=== PATIENT | female | born 1950 | race Caucasian/White ===

== ENCOUNTER → 2018-02-19 06:57 | Outpatient (CLI) | payer MEDICARE, BC, SELFPAY ==
[2018-02-19 07:27] LABS: Add Manual Diff / Slide Review NO; Basophils Percent Auto 1.1 % (0-2); Eosinophils Percent Auto 4.4 % (2-4); Hematocrit 43.8 % (36-46); Lymphocytes Percent Auto 33.3 % (25-40); Mean Corpuscular HGB Conc 34.3 % (30-36); Mean Corpuscular Hemoglobin 30.9 PG (26-34); Monocytes Percent Auto 10.8 % (3-14); Neutrophils Absolute Auto 2100 /uL (3000-5900); Neutrophils Percent Auto 50.4 % (50-75); Platelet Count 257 X10^3/uL (150-400); Red Blood Cell Count 4.87 X10^6/uL (4.0-5.2); Red Cell Distribution Width 13.8 % (11.6-14.8); White Blood Cell Count 4.2 X10^3/uL (4.5-11.0)
[2018-02-19 07:38] LABS: Alanine Aminotransferase 32 IU/L (9-52); Albumin 4.1 g/dL (3.5-5.0); Albumin Globulin Ratio 1.2 (1.0-2.8); Alkaline Phosphatase 73 U/L (38-126); Aspartate Aminotransferase 34 IU/L (14-36); BUN Creatinine Ratio 18.8 (6-22); Bilirubin Total 0.5 mg/dL (0.2-1.3); Blood Urea Nitrogen 15 mg/dL (7-17); Calcium 9.5 mg/dL (8.4-10.2); Carbon Dioxide 29 mmol/L (22-32); Chloride 105 mmol/L (98-107); Cholesterol 231 mg/dL (140-199); Estimated Glomerular Filt Rate > 60.0 mL/min (>60); Globulin 3.5 g/dL (1.7-4.1); Glucose 106 mg/dL (80-110); HDL Cholesterol 68 mg/dL (40-60); HEMOLYSIS < 15 (0-50); LDL Cholesterol Calculated 146 mg/dL (<100); Potassium 3.8 mmol/L (3.4-5.1); Sodium 143 mmol/L (137-145); Total Protein 7.6 g/dL (6.3-8.2); Triglycerides 84 mg/dL (35-150)
[2018-02-19 08:28] LABS: Thyroid Stimulating Hormone 1.96 uIU/mL (0.47-4.68)
[2018-02-23 21:28] LABS: Thyroid Stimulating Immunoglob < 89 % baseline (< 140)
== END ==
PROVIDERS: PCP Family Medicine; Visit Provider Family Medicine
DX: E06.3 Autoimmune thyroiditis (principal); E78.5 Hyperlipidemia, unspecified
CPT/HCPCS: 36415; 80053; 80061; 84443; 84445; 85025

== ENCOUNTER → 2018-03-20 12:53 | Outpatient (CLI) | payer MEDICARE, BC, SELFPAY ==
--- NOTE | 2018-03-20 12:54 | DI.US.S_ITS ---
PROCEDURE: US THYROID INDICATIONS: NODULE TECHNIQUE: Real-time scanning was performed of the thyroid gland, with image documentation. COMPARISON: [facility], US, THYROID, 08/25/2013, 14:03. FINDINGS: Right: The right thyroid lobe measures 2.6 x 2.4 x 5.4 cm and contains 2 discrete nodules. The right thyroid lobe measures 2.1 x 1.3 x 4.6 cm. The thyroid parenchyma is heterogeneous bilaterally, but there are 2 discrete right thyroid nodules one of which is superior measuring up to 2.1 x 1.5 x 1.6 cm and a second is inferior and measures 1.9 x 1.5 x 1.5 cm. The right superior thyroid nodule as slightly enlarged, and the right inferior thyroid nodule is new.. Left: The left thyroid lobe measures up to 2.1 x 1.3 x 4.6 cm and contains a small 3 x 3 x 4 mm nodule is solid, hypoechoic smoothly marginated. Isthmus: 4 mm in thickness. IMPRESSION: Mild interval enlargement of the superior right thyroid nodule, interval development of a new right inferior thyroid nodule. Very small left middle third thyroid nodule, generalized heterogeneity of the thyroid gland bilaterally. Dictated by: Sukhjinder Le M.D. on 03/20/2018 at 14:06 Approved by: Sukhjinder Le M.D. on 03/20/2018 at 14:09
--- NOTE | 2018-03-20 12:54 | DI.MG.S_ITS ---
BILATERAL DIGITAL SCREENING MAMMOGRAM 3D/2D WITH CAD: 03/20/2018 CLINICAL: Routine screening. Comparison is made to exams dated: 02/27/2015 mammogram, 11/26/2011 mammogram - [facility], and 05/19/2007 mammogram - [facility]. There are scattered fibroglandular elements in both breasts. Current study was also evaluated with a Computer Aided Detection (CAD) system. There is an asymmetry in the right breast middle depth lateral region seen on the craniocaudal view only. There is architectural distortion associated with the asymmetry. No other significant masses, calcifications, or other findings are seen in either breast. IMPRESSION: INCOMPLETE: NEEDS ADDITIONAL IMAGING EVALUATION The asymmetry in the right breast is indeterminate. Additional views with possible ultrasound are recommended. This exam was interpreted at Station ID: [id number]. NOTE: For mammograms, a report in lay terms will be sent to the patient. Approximately 15% of breast malignancies will not be visualized mammographically. In the management of a palpable breast mass, a negative mammogram must not discourage biopsy of a clinically suspicious lesion. Electronically Signed By: Erin Naranjo M.D. lk/:03/20/2018 15:43:58 copy to: Yaritza Osborn copy to: IAIN FIGUEROA letter sent: Additional Imaging Needed ACR BI-RADS Category 0: Incomplete [id number]
== END ==
PROVIDERS: Family Provider Family Medicine; PCP Family Medicine; Visit Provider Family Medicine
DX: Z12.31 Encounter for screening mammogram for malignant neoplasm of breast (principal); E06.3 Autoimmune thyroiditis; E78.5 Hyperlipidemia, unspecified; E04.2 Nontoxic multinodular goiter
CPT/HCPCS: 76536; 77063; 77067

== ENCOUNTER → 2018-04-03 08:24 | Outpatient (CLI) | payer MEDICARE, BC, SELFPAY ==
--- NOTE | 2018-04-03 | DI.US.S_ITS ---
ULTRASOUND OF RIGHT BREAST: 04/03/2018 CLINICAL: Follow up from addtional views. Comparison is made to exams dated: 04/03/2018 mammogram, 03/20/2018 mammogram, and 02/27/2015 mammogram - [facility]. Color flow ultrasound of the right breast was performed. Butt scale images of the real-time examination were reviewed. There is a 5 mm irregular mass with a spiculated margin in the right breast at 10 o'clock middle depth. This irregular mass is hypoechoic. Sonographically normal right axillary lymph nodes. IMPRESSION: SUSPICIOUS OF MALIGNANCY - FOLLOW-UP RECOMMENDED The 5 mm irregular mass in the right breast is suspicious of malignancy. An ultrasound guided biopsy is recommended. This exam was interpreted at Station ID: [id number]. Electronically Signed By: Theodore Brown M.D. cj/:04/03/2018 11:19:25 copy to: Yaritza Osborn letter sent: Biopsy Required Ultrasound BI-RADS: 4 Suspicious abnormality
--- NOTE | 2018-04-03 | DI.MG.S_ITS ---
UNILATERAL RIGHT DIGITAL DIAGNOSTIC MAMMOGRAM 3D/2D WITH ADDITIONAL VIEWS: 04/03/2018 CLINICAL: Additional evaluation requested from prior study. Comparison is made to exams dated: 03/20/2018 mammogram, 02/27/2015 mammogram, and 11/26/2011 mammogram - [facility]. There are scattered fibroglandular elements in the right breast. There is a 4 mm irregular mass with an indistinct margin in the right breast at 10 o'clock anterior depth. No other significant masses or calcifications are seen in the breast. IMPRESSION: INCOMPLETE: NEEDS ADDITIONAL IMAGING EVALUATION The 4 mm irregular mass in the right breast is indeterminate. An ultrasound is recommended. This exam was interpreted at Station ID: [id number]. NOTE: For mammograms, a report in lay terms will be sent to the patient. Approximately 15% of breast malignancies will not be visualized mammographically. In the management of a palpable breast mass, a negative mammogram must not discourage biopsy of a clinically suspicious lesion. Electronically Signed By: Theodore lopes/olivia:04/03/2018 11:17:19 copy to: Yaritza Osborn [facility] BI-RADS Category 0: Incomplete [id number]
== END ==
PROVIDERS: Family Provider Family Medicine; PCP Family Medicine; Visit Provider Family Medicine
DX: R92.8 Other abnormal and inconclusive findings on diagnostic imaging of breast (principal); N63.11 Unspecified lump in the right breast, upper outer quadrant
CPT/HCPCS: 76642; 77065; G0279

== ENCOUNTER → 2018-04-15 07:39 | Outpatient (CLI) | payer MEDICARE, BC, SELFPAY ==
--- NOTE | 2018-04-15 | DI.MG.S_ITS ---
UNILATERAL RIGHT DIGITAL DIAGNOSTIC MAMMOGRAM POST-NEEDLE BIOPSY: 04/15/2018 CLINICAL: Right breast mass. Comparison is made to exams dated: 04/03/2018 mammogram, 03/20/2018 mammogram, and 02/27/2015 mammogram - [facility]. There are scattered fibroglandular elements in the right breast. There is a marker clip in the appropriate position in the right breast at 11 o'clock middle depth. This marker clip placement is at biopsy site. IMPRESSION: POST PROCEDURE MAMMOGRAM FOR MARKER PLACEMENT There was a successful marker clip placement in the right breast middle depth. This exam was interpreted at Station ID: [id number]. NOTE: For mammograms, a report in lay terms will be sent to the patient. Approximately 15% of breast malignancies will not be visualized mammographically. In the management of a palpable breast mass, a negative mammogram must not discourage biopsy of a clinically suspicious lesion. Electronically Signed By: Sukhjinder Le M.D. sdh/:04/15/2018 16:47:02 copy to: IAIN FIGUEROA ACR BI-RADS Category Post-procedure mammogram for marker placement
--- NOTE | 2018-04-15 | PATH_ITS ---
[facility] Accession Number: [id number] . 01 Material submitted: . RIGHT BREAST MASS . 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 Jake grade 2 of 3 (poor tubule formation-3, intermediate nuclear pleomorphism-2, low mitotic rate-1). 2. Greatest linear extent: 4 mm. 3. Ductal carcinoma in situ: Present, low grade, solid pattern. 4. Microcalcifications: Not identified. 5. Lymph-vascular invasion: Not identified. 6. Prognostic markers: Estrogen receptor (SP1): Moderately positive, 20% of cells. Progesterone receptor (1E2): Strongly positive, 15% of cells. HER-2 (4B5): Negative (score 1+). MRV/04/17/2018 . 02 Comment: As part of routine quality assurance monitor, Dr. Genao also reviewed this case and agrees with the diagnosis of mammary carcinoma. Dr. Vega called Dr. Miranda office on 04/17/18. . 02 Electronically signed: . Bell Vega MD, Pathologist NPI- [id number] . 01 Gross description: . Received one formalin-filled container labeled with the patient's name and designated right breast mass 10 o'clock, 5 cm from nipple. The specimen is received with a plastic filter, sample loose in container. The specimen consists of multiple light yellow to yellow-gabriel portions of tissue which aggregate to 1.5 x 0.5 x 0.3 cm. The specimen is filtered and entirely submitted in one cassette. Collection date: 04/15/2018. Collection time: 8:33 AM per container. Total fixation time: 12 hours, up to 24. ([id number]) /FRR . 02 Microscopic: . Immunohistochemical stains were performed to characterize the cells of interest. All control stains showed appropriate reactivity. . RESULTS: P63: Positive around cell groups of interest consistent with in situ carcinoma. . E-cadherin: Positive in the cells of interest, consistent with ductal carcinoma. . Estrogen receptor: Moderately positive, 20% of cells. Progesterone receptor: Strongly positive, 15% of cells. HER-2: Negative (score 1+). . * This test was developed and its performance characteristics determined by [facility]. It has not been cleared or approved by the U.S. Food and Drug Administration. The FDA has determined that such clearance or approval is not necessary. This test is used for clinical purposes. It should not be regarded as investigational or for research. . 02 Pathologist provided ICD-10: C50.911 . 02 CPT . 259402, U29829, H91178 Performed at: 01 [facility] [address] [id number] MD Abebe Ha MD Phone: [phone] Performed at: 02 [facility] [address] [place] [id number] MD Aristides Kim MD Phone: [phone]
--- NOTE | 2018-04-15 07:41 | DI.US.S_ITS ---
ULTRASOUND GUIDED BIOPSY RIGHT BREAST USING VACUUM DEVICE WITH MARKING DEVICE INSERTED AND POST DIGITAL MAMMOGRAPHIC AND ULTRASOUND IMAGIN04/15/2018 CLINICAL: Right breast mass. PATIENT CONSENT: Risks (minor bleeding, infection, vasovagal reaction and repeat procedure), benefits and alternatives were explained to the patient and written informed consent was obtained. Correlation is made to exams dated: 04/03/2018 ultrasound, 04/03/2018 mammogram, 03/20/2018 mammogram, and 02/27/2015 mammogram - [facility]. An ultrasound guided biopsy using real-time ultrasound was performed for the concerning 0.4 cm x 0.5 cm x 0.4 cm circumscribed round mass located in the right breast at 11 o'clock anterior depth. This was described on the previous mammography and ultrasound reports. The skin was prepped in the usual manner. Local anesthetic was administered to the access site. A skin angelica was made in the breast. The abnormality was approached from the lateral aspect. A 13 gauge biopsy needle was placed adjacent to the abnormality under ultrasound guidance. Once the needle was documented to be in the correct location, four specimens were obtained using the Mammotome biopsy system. The patient received additional local anesthetic during the procedure. A clip was inserted into the biopsy cavity. A skin closure strip was applied to the access site. Post procedure digital mammographic and ultrasound imaging demonstrates the clip at the targeted area and partial removal of the abnormality. The specimens were sent to the laboratory for pathological analysis. IMPRESSION: ULTRASOUND GUIDED BIOPSY MALIGNANT Ultrasound guided biopsy of the 0.4 cm x 0.5 cm x 0.4 cm mass in the right breast at 11 o'clock anterior depth was successful. Post biopsy mammogram will be performed now. Pathology results demonstrate malignant invasive ductal carcinoma with DCIS present. Findings are concordant with prior mammogram and ultrasound. This exam was interpreted at Station ID: [id number]. Sukhjinder meneses,markus/:04/22/2018 13:54:18 copy to: IAIN FIGUEROA
== END ==
PROVIDERS: Family Provider Family Medicine; PCP Family Medicine; Visit Provider Family Medicine
DX: C50.411 Malignant neoplasm of upper-outer quadrant of right female breast (principal); Z17.0 Estrogen receptor positive status [ER+]
CPT/HCPCS: 19083; 77065

== ENCOUNTER → 2018-04-24 10:33 | Outpatient (CLI) | payer MEDICARE, BC, SELFPAY ==
--- NOTE | 2018-04-24 | DI.CT.S_ITS ---
PROCEDURE: CT SINUS SCREEN WO CON INDICATIONS: CHRONIC SINUSITIS. RIGHT SIDED SINUS PRESSURE TECHNIQUE: Noncontrast 3.0 mm axial images acquired from the frontal sinuses to the mid-sella, with coronal and sagittal reformats. For radiation dose reduction, the following was used: automated exposure control, adjustment of mA and/or kV according to patient size. COMPARISON: [facility], MR, BRAIN WITHOUT CONTRAST, 01/18/2013, 15:07. FINDINGS: Image quality: Excellent. Maxillary Sinuses: No bony remodeling or destruction. Sinuses are clear. Ethmoid Air Cells: No bony remodeling or destruction. Sinuses are clear. Sphenoid Sinuses: No bony remodeling or destruction. Sinuses are clear. Frontal Sinuses: No bony remodeling or destruction. Sinuses are clear. Note is made of the right frontal sinus is poorly developed. Ostiomeatal Complexes: Ostiomeatal complexes are patent. No Raciel cells. Miscellaneous: Visualized intra-orbital contents are normal. No zunilda bullosa or paradoxical turbinate curvature. No significant nasal septal deviation. IMPRESSION: No significant active paranasal sinus disease is seen. Dictated by: Trevor Abdullahi M.D. on 04/24/2018 at 11:35 Approved by: Trevor Abdullahi M.D. on 04/24/2018 at 11:36
== END ==
PROVIDERS: Family Provider Naturopath; PCP Family Medicine; Visit Provider Otolaryngology
DX: J32.9 Chronic sinusitis, unspecified (principal)
CPT/HCPCS: 70486

== ENCOUNTER → 2018-04-28 07:36 | Outpatient (CLI) | payer MEDICARE, BC, SELFPAY ==
--- NOTE | 2018-04-28 07:38 | DI.NM.S_ITS ---
PROCEDURE: NM UPTAKE AND SCAN RADIOPHARMACEUTICAL: 0.4 ?Ci I-123 sodium iodide by mouth. INDICATIONS: nodules rt thyroid TECHNIQUE: I-123 sodium iodide was administered orally. Anterior neck images were obtained, and iodine uptake by the thyroid gland calculated using ironing machine operator's software. COMPARISON: [facility], , THYROID, 03/20/2018, 13:17. FINDINGS: Morphology: The thyroid gland has normal morphology and uniform activity. No 'cold' or 'hot' thyroid nodules are identified. Uptake: 6 hour thyroid uptake is 6.2%; normal ranges are from 6-18%. 24 hour thyroid uptake is 15.2%; normal ranges are from 10-30%. IMPRESSION: Normal thyroid scan, no abnormal hot or cold thyroid nodules found. Thyroid uptake of the radioisotope is within normal limits at both 6 and 24 hours. Dictated by: Sukhjinder Le M.D. on 04/29/2018 at 11:52 Approved by: Sukhjinder Le M.D. on 04/29/2018 at 11:54
== END ==
PROVIDERS: Family Provider Naturopath; PCP Family Medicine; Visit Provider Family Medicine
DX: E04.1 Nontoxic single thyroid nodule (principal)
CPT/HCPCS: 78014; A9516

== ENCOUNTER → 2018-04-30 13:10 | Outpatient (CLI) | payer MEDICARE, BC, SELFPAY ==
[2018-04-30 14:51] LABS: Free T3, Triiodothyronine Free 2.72 pg/mL (2.77-5.27); Free T4, Direct Thyroxine 1.31 ng/dL (0.78-2.19)
[2018-04-30 15:05] LABS: Thyroid Stimulating Hormone 1.22 uIU/mL (0.47-4.68)
[2018-05-02 16:24] LABS: Anti Thyroglobulin Antibody 77 IU/mL (< 2); Thyroid Peroxidase Antibodies 104 IU/mL (< 9)
[2018-05-05 15:31] LABS: Triiodothyronine T3 Reverse 29 ng/dL (8-25)
== END ==
PROVIDERS: Family Provider Naturopath; PCP Family Medicine; Visit Provider Family Medicine
DX: E03.9 Hypothyroidism, unspecified (principal)
CPT/HCPCS: 36415; 84439; 84443; 84481; 84482; 86376; 86800

== ENCOUNTER → 2018-05-08 13:14 | Outpatient (CLI) | payer MEDICARE, BC, SELFPAY ==
--- NOTE | 2018-05-08 13:15 | DI.US.S_ITS ---
ULTRASOUND OF RIGHT BREAST: 05/08/2018 CLINICAL: Pre-op wire localization. Comparison is made to exams dated: 04/22/2018 breast MRI - [facility], 04/15/2018 mammogram, 04/15/2018 ultrasound biopsy, 04/03/2018 ultrasound, 04/03/2018 mammogram, and 03/20/2018 mammogram - [facility]. Color flow ultrasound of the right breast was performed. Butt scale images of the real-time examination were reviewed. There is a 0.4 cm mass in the right breast at 10 o'clock middle depth 5 cm from the nipple. IMPRESSION: KNOWN BIOPSY PROVEN MALIGNANCY The 0.4 cm mass in the right breast is a known biopsy positive for malignancy. Post biopsy marker is noted but is 2 cm from the biopsy proven malignancy. This exam was interpreted at Station ID: [id number]. Electronically Signed By: Theodore Brown M.D. cj/:05/08/2018 15:22:17 Ultrasound BI-RADS: 6 Known biopsy proven malignancy
== END ==
PROVIDERS: Family Provider Naturopath; PCP Family Medicine; Visit Provider Surgery
DX: C50.411 Malignant neoplasm of upper-outer quadrant of right female breast (principal)
CPT/HCPCS: 76642

== ENCOUNTER 2018-05-20 07:02 | Day surgery (SDC) | payer MEDICARE, BC, SELFPAY ==
[2018-04-30 15:03] VITALS: BMI 35.9
[2018-05-20] VITALS (8 sets, daily range): BP systolic 90–154; BP diastolic 51–82; PULSE 59–83; RESP 10–16; TEMP 36–36.6; O2SAT 92–99; BMI 34.7
--- NOTE | 2018-05-20 | DI.MG.S_ITS ---
PROCEDURE: MM DIAGNOSTIC MAMMO UNILAT RT2D COMPARISON: [facility], , CHELSIE DIAGNOSTIC MAMMO UNILAT RT2D, 04/15/2018, 8:47. INDICATIONS: Right Breast Cancer FINDINGS: IMPRESSION: Dictated by: Ramírez Wade M.D. on 05/20/2018 at 10:30 Approved by: Ramírez Wade M.D. on 05/20/2018 at 10:31
--- NOTE | 2018-05-20 | DI.US.S_ITS ---
PROCEDURE: US BREAST NEEDLE LOC RT COMPARISON: None. INDICATIONS: PRE-OP WIRE LOC FINDINGS: IMPRESSION: Dictated by: Ramírez Wade M.D. on 05/20/2018 at 10:37 Approved by: Ramírez Wade M.D. on 05/20/2018 at 10:49
--- NOTE | 2018-05-20 | DI.MG.S_ITS ---
PROCEDURE: MM SURGICAL SPECIAMN RT INDICATIONS: Right Breast Cancer TECHNIQUE: Intraoperative film of the breast surgical specimen acquired. COMPARISON: None. IMPRESSION: Dictated by: Ramírez Wade M.D. on 05/20/2018 at 12:52 Approved by: Ramírez Wade M.D. on 05/20/2018 at 13:09
--- NOTE | 2018-05-20 | PATH_ITS ---
[facility] Accession Number: [id number] . 01 Material submitted: . PART A: RIGHT AXILLARY, SENTINEL NODE PART B: RIGHT BREAST BIOPSY . 02 Diagnosis: . A. Right Axillary Addy Node, Addy Node Biopsy: One sentinel lymph node negative for metastatic carcinoma by H/E stains and immunohistochemistry studies (0/1). . B. Right Breast Biopsy, Lumpectomy After Needle Localization: . CAP CANCER CASE SUMMARY: . Invasive carcinoma of the breast with the following features: . Procedure: Right breast lumpectomy and sentinel node biopsy after needle localization and mapping. Specimen Laterality: Right. . Tumor site: 10 o'clock 5 cm from nipple per biopsy report Tumor size: 0.9 cm Histologic type: Infiltrating ductal carcinoma (e-cadherin IHC study positive, performed on previous needle core biopsy). Histologic grade: Jake histologic score 5 of 9 (Grade 1) Glandular/Tubular differentiation: Score 2. Nuclear Pleomorphism: Score 2. Mitotic Rate: Score 1. Overall Grade: Grade 1 of 3 (Low grade). Tumor focality: Unifocal Ductal carcinoma in situ: Present. Size (Extent) of DCIS: Rare scattered foci, each less than 1 mm. Architectural patterns: Solid. Nuclear grade: Grade 1 / low grade. Necrosis: Not identified. Lobular carcinoma in situ: Not identified. . Macroscopic and microscopic extent of tumor Skin: Not applicable. Nipple: Not applicable. Skeletal muscle: Not applicable. . Margins Negative for invasive carcinoma: Anterior: 7 mm. Posterior: Greater than 10 mm. Superior: Greater than 10 mm. Inferior: Greater than 10 mm. Medial: Greater than 10 mm. Lateral: 3 mm. Margins Negative for DCIS: Anterior: Greater than 10 mm. Posterior: Greater than 10 mm. Superior: Greater than 10 mm. Inferior: Greater than 10 mm. Medial: Greater than 10 mm. Lateral: 3 mm. . Lymph nodes Total number of lymph nodes examined: 1. Number of sentinel lymph nodes examined: 1. Lymph Node Involvement: Number of lymph nodes with macrometastases: 0. Number of lymph nodes with micrometastases: 0. Number of lymph nodes with isolated tumor cells: 0. . Addy Lymph Nodes:H/E stains and immunohistochemistry with LENIN. . Treatment effect: Response to Presurgical Therapy Breast: Not identified. Lymph nodes: Not identified. . Lymph-vascular invasion: Not identified. Dermal lymph-vascular invasion: Not applicable. Pathologic staging: AJCC, 8th ed. Primary tumor: pT1b Regional lymph nodes: pN0 (sn) . Additional pathologic findings: Changes consistent with previous instrumentation are present. Microcalcifications: Not identified. . Ancillary studies: Biomarkers [id number]. EstrogenReceptor (ER) Status: Positive (moderate staining, 20% of cells. Progesterone (PgR) Status: Positive (strong staining, 15% of cells). HER2 (by immunohistochemistry): Negative (score 1+). HER2 (by in situ hybridization: Not applicable. MRV/05/25/2018 . 02 Electronically signed: . Germain Genao MD, PhD, Pathologist NPI- [id number] . 01 Gross description: . (A) Received in formalin, labeled right axillary sentinel node (navigator count [id number]), is a piece of adipose tissue (4.5 x 2.4 x 1.3 cm) containing a lymph node (2.7 x 1.3 x 0.8 cm). Serially sectioned and entirely submitted in cassettes A1-A3. (B) Received in formalin, labeled right breast biopsy, short stitch superior, long lateral, double anterior, is a piece of breast tissue (2.6 cm AP, 4.5 cm SI, 6.7 cm ML) oriented with three black sutures (short-superior, long-lateral, double-anterior). A localization wire enters the central anterolateral aspect. The specimen is serially sectioned ML into 20 slices with the medial and lateral resection margins as slices #1 and #20, respectively. The localization wire ends between slices #14 and #15. The breast tissue is fatty and contains a gabriel-white solid firm irregular mass (0.9 x 0.5 x 0.5 cm) within slices #19 and #20. The mass is 0.7 cm from the anterior, 1.3 cm from the posterior, 1.4 cm from the superior, 2.5 cm from the inferior, 6.1 cm from the medial, and less than 0.1 cm from the lateral resection margins. No other nodules, masses or lesions are identified. Ink code: purple-anterior; yellow-posterior; black-superior; orange-inferior; green-medial; blue-lateral. Section code: (B1) medial resection margin, perpendicularly sectioned, dental sales representative; (B2) slice #11, dental sales representative; (B3) slice #12, dental sales representative; (B4) slice #14, slice involving the localization wire, dental sales representative; (B5) slice #15, slice involving the localization wire, dental sales representative; (B6) slice #16, dental sales representative; (B7) slice #17, dental sales representative; (B8) slice #18, tissue adjacent to mass, entirely submitted; (B9) slice #19, entirely submitted; (B10) lateral resection margin, perpendicularly sectioned, entirely submitted. Note: Approximate total fixation time in formalin-31 hours 30 minutes using a collection date of 05/20/2018 with no collection time given. (JM:[id number]) /MRV . 02 Microscopic: . An immunohistochemistry study for LENIN was performed on blocks A1 and A2 to further evaluate the cells of interest. A control stain showed appropriate reactivity. . Results: Blocks A1 and A2: LENIN: Negative for metastatic carcinoma. . * This test was developed and its performance characteristics determined by [facility]. It has not been cleared or approved by the U.S. Food and Drug Administration. The FDA has determined that such clearance or approval is not necessary. This test is used for clinical purposes. It should not be regarded as investigational or for research. . 02 Pathologist provided ICD-10: C50.911 . 02 CPT . 145143, 525888, [id number] Performed at: 01 [facility] [address] [place] [address], [place], [place] [id number] MD Abebe Ha MD Phone: [phone] Performed at: 02 [place] [id number] [place] [id number] MD Aristides Kim MD Phone: [phone]
--- NOTE | 2018-05-20 | DI.NM.S_ITS ---
PROCEDURE: NM SENTINEL NODE W IMAGING RADIOPHARMACEUTICAL: 0.5 mCi Millipore filtered Tc-99m sulfur colloid. INDICATIONS: RIGHT BREAST CANCER TECHNIQUE: Written informed consent was obtained. The area around the region of concern on the right breast was prepped and draped in a sterile fashion. Tc-99m sulfur colloid was injected intra-dermally and subcutaneously around the areola. Images were obtained. FINDINGS: There is intense uptake at the injection site. 2 lymph nodes are identified in the right axilla. IMPRESSION: 2 lymph nodes are identified in the right axilla. Dictated by: Ena Perla M.D. on 05/20/2018 at 11:45 Approved by: Ena Perla M.D. on 05/20/2018 at 11:47
--- NOTE | 2018-05-20 09:49 | SUR.PREOP ---
pt back from radiology and denies any pain and right arm is raised. Pt is pleasant and cooperative. at bedside.
[2018-05-20] MEDS: LACTATED RINGERS 1,000 ML 42 ML IV ×2 (11:00→12:55)
--- NOTE | 2018-05-20 11:18 | SUR.OPER ---
Supine on padded OR bed, head on pillow, arms secured on padded arm boards at <90 degrees abduction, legs uncrossed, safety belt at thigh, tape over blanket over lower legs
[2018-05-20] MEDS: CEFAZOLIN 2 GM/100 ML FROZ.PIGGY IV (11:55)
[2018-05-20] MEDS: BUPIVACAINE 0.5% (PF) VIAL 30 ML INJ (12:23)
[2018-05-20] MEDS: LIDOCAINE 1% W/EPI INJ 20 ML INJ (12:24)
--- NOTE | 2018-05-20 12:38 | SUR.OPER ---
Navigator count [id number] for sentinel node
--- NOTE | 2018-05-20 12:57 | PM.PREOP ---
Pre-operative Note Interval Note Pre-op Check: Yes History & Physical Reviewed by Physician Changes: No
--- NOTE | 2018-05-20 12:57 | PM.OP.1 ---
Operative Date/Time/Diagnoses Date of procedure: 05/20/18 Time of procedure: 12:57 Pre-op diagnosis: Biopsy-proven right breast cancer Post-op diagnosis: same Procedure & Clinicians Procedure: Right breast lumpectomy and sentinel node biopsy after needle localization and mapping Same procedure as scheduled: Yes Indications: Biopsy-proven right breast cancer Surgeon: Jenae Barton Click Yes if Unassisted: Yes Anesthesia Type: General (Kotlarczyk) and Local Operative Notes Findings: 1. One enlarged sentinel node with a 10 [place] [address] 2. Background in the axilla of 6 3. The background in the room of 0 4. Wire and lesion contained within the specimen. Specimen(s): other (1. Right axillary sentinel node; 2. Right breast lumpectomy marked for orientation) Estimated Blood Loss (mL): 10 Procedure in detail: After obtaining informed consent, the patient was brought to the operating room and placed in the supine position on the operating table. Following successful induction of general endotracheal anesthesia, appropriate padding of all bony prominences, and placement of appropriate monitors, the right breast and axilla were prepped and draped in a standard surgical fashion. A timeout was held per SCOAP protocol. Following injection of mixture of local anesthetics into the axillary fold on the right side, an incision was created and carried down through the skin and subcutaneous tissue to enter the axillary fat pad below. The navigator was used to identify the sentinel node. This was done by identifying a small node in level I of the axillary packet. The node itself had a 1 second count of approximately 3300 in a background of less than 6. The node was carefully liberated from the remainder of the axillary packet being sure not to compromise any of the other lymphatic structures. All afferent and efferent lymphatics and vasculature were addressed with hemoclips prior to division. The axillary node packet was re-examined using the navigator and no other lymph nodes were identified that exhibited significant uptake of radioactive tracer. The wound was checked for hemostasis and irrigated with warm water. It was closed in 2 layers with Vicryl and Monocryl suture. We continued with lumpectomy on the right side. A curvilinear incision was created at the superior edge of the nipple-areolar complex on the right. This was carried down through the breast tissue to the palpable wire laterally. The wire was then pulled through the skin and the entire lesion liberated using only sharp dissection. The wire appeared to be centered within the specimen. It was marked for orientation and was sent for specimen x-ray. The wound was checked for hemostasis and irrigated with water. The radiologist called back into the room noting that the specimen x-ray contained the wire and mass. It was clearly documented and noted preoperatively that the clip is approximately 2.5 cm posterior to the breast lesion. For this reason, the clip was not a target in this procedure. The wound was checked once again for hemostasis. It was irrigated copiously with warm water and aspirated free of all fluid. The wound was checked once again for hemostasis and then closed in 2 layers with Vicryl Monocryl suture. Dermabond was applied to the skin incisions. Fluffs and a breast binder were applied. The patient tolerated the procedure very well. She was allowed awaken from anesthesia and taken to the post-anesthesia care unit in good condition. Complications: none Condition: stable Disposition: PACU Plan for aftercare: 1. Discharged to home 2. Follow up with me in 2 weeks
[2018-05-20] MEDS: OXYCODONE/ACETAMINOPHEN 5/325 TABLET 1 TAB PO (13:21)
== END 2018-05-20 14:05 | disposition home or self-care (01) ==
PROVIDERS: Family Provider Naturopath; PCP Family Medicine; Visit Provider Surgery
PROC: (CPT 19301; principal; 2018-05-20 11:00)
DX: C50.911 Malignant neoplasm of unspecified site of right female breast (principal)
CPT/HCPCS: 19301; 38500; 19285; 76098; 77065; 78195; 88307; 88342; A9541; J0690; J1100; J2250; J2405; J2704; J3010

== ENCOUNTER → 2018-07-03 07:00 | Outpatient (CLI) | payer MEDICARE, BC, SELFPAY ==
[2018-07-03 10:01] LABS: Alanine Aminotransferase 33 IU/L (9-52); Albumin 4.2 g/dL (3.5-5.0); Albumin Globulin Ratio 1.3 (1.0-2.8); Alkaline Phosphatase 84 U/L (38-126); Aspartate Aminotransferase 31 IU/L (14-36); BUN Creatinine Ratio 23.8 (6-22); Bilirubin Total 0.6 mg/dL (0.2-1.3); Blood Urea Nitrogen 19 mg/dL (7-17); Calcium 9.5 mg/dL (8.4-10.2); Carbon Dioxide 28 mmol/L (22-32); Chloride 105 mmol/L (98-107); Cholesterol 218 mg/dL (140-199); Estimated Glomerular Filt Rate > 60.0 mL/min (>60); Globulin 3.3 g/dL (1.7-4.1); Glucose 92 mg/dL (80-110); HDL Cholesterol 50 mg/dL (40-60); HEMOLYSIS < 15 (0-50); LDL Cholesterol Calculated 153 mg/dL (<100); Potassium 3.9 mmol/L (3.4-5.1); Sodium 144 mmol/L (137-145); Total Protein 7.5 g/dL (6.3-8.2); Triglycerides 77 mg/dL (35-150)
[2018-07-03 10:09] LABS: Free T3, Triiodothyronine Free 2.77 pg/mL (2.77-5.27); Free T4, Direct Thyroxine 1.07 ng/dL (0.78-2.19)
[2018-07-03 10:22] LABS: Thyroid Stimulating Hormone 1.91 uIU/mL (0.47-4.68)
[2018-07-07 16:28] LABS: Thyroid Peroxidase Antibodies 81 IU/mL (< 9)
[2018-07-09 08:44] LABS: Triiodothyronine T3 Reverse 22 ng/dL (8-25)
== END ==
PROVIDERS: Family Provider Naturopath; PCP Family Medicine; Visit Provider Family Medicine
DX: E03.9 Hypothyroidism, unspecified (principal); I10 Essential (primary) hypertension
CPT/HCPCS: 80053; 80061; 84439; 84443; 84481; 84482; 86376

== ENCOUNTER → 2018-08-14 13:38 | Outpatient (CLI) | payer MEDICARE, BC, SELFPAY ==
[2018-08-14 14:21] LABS: Add Manual Diff / Slide Review NO; Basophils Percent Auto 0.9 % (0-2); Eosinophils Percent Auto 6.1 % (2-4); Hematocrit 43.8 % (36-46); Hemoglobin 14.7 g/dL (12.0-16.0); Lymphocytes Percent Auto 23.1 % (25-40); Mean Corpuscular HGB Conc 33.7 % (30-36); Mean Corpuscular Hemoglobin 30.5 PG (26-34); Mean Corpuscular Volume 90.7 fL (80-100); Monocytes Percent Auto 8.1 % (3-14); Neutrophils Absolute Auto 3200 /uL (3000-5900); Neutrophils Percent Auto 61.8 % (50-75); Platelet Count 270 X10^3/uL (150-400); Red Blood Cell Count 4.82 X10^6/uL (4.0-5.2); Red Cell Distribution Width 13.5 % (11.6-14.8); White Blood Cell Count 5.3 X10^3/uL (4.5-11.0)
[2018-08-14 15:30] LABS: Alanine Aminotransferase 51 IU/L (9-52); Albumin 4.2 g/dL (3.5-5.0); Albumin Globulin Ratio 1.4 (1.0-2.8); Alkaline Phosphatase 95 U/L (38-126); Aspartate Aminotransferase 46 IU/L (14-36); BUN Creatinine Ratio 25.6 (6-22); Bilirubin Total 0.3 mg/dL (0.2-1.3); Blood Urea Nitrogen 23 mg/dL (7-17); Calcium 9.8 mg/dL (8.4-10.2); Carbon Dioxide 30 mmol/L (22-32); Chloride 102 mmol/L (98-107); Estimated Glomerular Filt Rate > 60.0 mL/min (>60); Globulin 3.1 g/dL (1.7-4.1); Glucose 88 mg/dL (80-110); HEMOLYSIS < 15 (0-50); Potassium 4.1 mmol/L (3.4-5.1); Sodium 144 mmol/L (137-145); Total Protein 7.3 g/dL (6.3-8.2)
== END ==
PROVIDERS: Family Provider Naturopath; PCP Family Medicine; Visit Provider Internal Medicine Hematology & Oncology
DX: C50.411 Malignant neoplasm of upper-outer quadrant of right female breast (principal); M85.852 Other specified disorders of bone density and structure, left thigh; Z78.0 Asymptomatic menopausal state; Z82.62 Family history of osteoporosis; E07.9 Disorder of thyroid, unspecified; M54.9 Dorsalgia, unspecified; M48.00 Spinal stenosis, site unspecified; G89.29 Other chronic pain
CPT/HCPCS: 36415; 77080; 80053; 85025

== ENCOUNTER → 2018-10-14 13:57 | Outpatient (CLI) | payer MEDICARE, BC, SELFPAY ==
[2018-10-14 14:53] LABS: Add Manual Diff / Slide Review NO; Basophils Absolute Auto 100 /uL (0-100); Basophils Percent Auto 1.1 % (0-2); Eosinophils Absolute Auto 200 /uL (0-450); Eosinophils Percent Auto 3.8 % (2-4); Hematocrit 43.7 % (36-46); Hemoglobin 14.9 g/dL (12.0-16.0); Lymphocytes Absolute Auto 1400 /uL (1100-4500); Lymphocytes Percent Auto 26.3 % (25-40); Mean Corpuscular Hemoglobin 30.8 PG (26-34); Mean Corpuscular Volume 90.6 fL (80-100); Monocytes Absolute Auto 300 /uL (0-900); Monocytes Percent Auto 5.5 % (3-14); Neutrophils Absolute Auto 3300 /uL (1500-7000); Neutrophils Percent Auto 63.3 % (50-75); Platelet Count 278 X10^3/uL (150-400); Red Blood Cell Count 4.82 X10^6/uL (4.0-5.2); Red Cell Distribution Width 13.7 % (11.6-14.8); White Blood Cell Count 5.2 X10^3/uL (4.5-11.0)
[2018-10-14 15:02] LABS: Alanine Aminotransferase 37 IU/L (9-52); Albumin 4.3 g/dL (3.5-5.0); Albumin Globulin Ratio 1.3 (1.0-2.8); Alkaline Phosphatase 89 U/L (38-126); Aspartate Aminotransferase 34 IU/L (14-36); BUN Creatinine Ratio 24.4 (6-22); Bilirubin Total 0.4 mg/dL (0.2-1.3); Blood Urea Nitrogen 22 mg/dL (7-17); Calcium 10.2 mg/dL (8.4-10.2); Carbon Dioxide 30 mmol/L (22-32); Chloride 100 mmol/L (98-107); Estimated Glomerular Filt Rate > 60.0 mL/min (>60); Globulin 3.4 g/dL (1.7-4.1); Glucose 123 mg/dL (80-110); HEMOLYSIS < 15 (0-50); Potassium 3.8 mmol/L (3.4-5.1); Sodium 140 mmol/L (137-145); Total Protein 7.7 g/dL (6.3-8.2)
== END ==
PROVIDERS: Family Provider Naturopath; PCP Family Medicine; Visit Provider Internal Medicine Hematology & Oncology
DX: D05.81 Other specified type of carcinoma in situ of right breast (principal)
CPT/HCPCS: 36415; 80053; 85025

== ENCOUNTER → 2019-01-19 08:17 | Outpatient (CLI) | payer MEDICARE, BC, SELFPAY ==
[2019-01-19 09:20] LABS: Add Manual Diff / Slide Review NO; Basophils Absolute Auto 0 /uL (0-100); Basophils Percent Auto 0.9 % (0-2); Eosinophils Absolute Auto 200 /uL (0-450); Eosinophils Percent Auto 4.5 % (2-4); Hematocrit 42.8 % (36-46); Hemoglobin 14.7 g/dL (12.0-16.0); Lymphocytes Absolute Auto 1300 /uL (1100-4500); Lymphocytes Percent Auto 29.5 % (25-40); Mean Corpuscular HGB Conc 34.4 % (30-36); Mean Corpuscular Hemoglobin 31.2 PG (26-34); Mean Corpuscular Volume 90.8 fL (80-100); Monocytes Absolute Auto 400 /uL (0-900); Monocytes Percent Auto 8.6 % (3-14); Neutrophils Absolute Auto 2500 /uL (1500-7000); Neutrophils Percent Auto 56.5 % (50-75); Platelet Count 257 X10^3/uL (150-400); Red Blood Cell Count 4.71 X10^6/uL (4.0-5.2); Red Cell Distribution Width 14.6 % (11.6-14.8); White Blood Cell Count 4.5 X10^3/uL (4.5-11.0)
[2019-01-19 09:37] LABS: Alanine Aminotransferase 27 IU/L (9-52); Albumin 4.2 g/dL (3.5-5.0); Albumin Globulin Ratio 1.2 (1.0-2.8); Alkaline Phosphatase 66 U/L (38-126); Aspartate Aminotransferase 44 IU/L (14-36); Bilirubin Total 0.5 mg/dL (0.2-1.3); Blood Urea Nitrogen 18 mg/dL (7-17); Calcium 9.7 mg/dL (8.4-10.2); Carbon Dioxide 31 mmol/L (22-32); Chloride 99 mmol/L (98-107); Estimated Glomerular Filt Rate > 60.0 mL/min (>60); Globulin 3.4 g/dL (1.7-4.1); Glucose 101 mg/dL (80-110); HEMOLYSIS < 15 (0-50); Potassium 3.8 mmol/L (3.4-5.1); Sodium 138 mmol/L (137-145); Total Protein 7.6 g/dL (6.3-8.2)
--- NOTE | 2019-01-19 12:42 | DI.MG.S_ITS ---
BILATERAL DIGITAL DIAGNOSTIC MAMMOGRAM 3D/2D SHORT-TERM FOLLOW-UP: 01/19/2019 CLINICAL: Right breast cancer, Short term follow up, due bilaterally. Comparison is made to exams dated: 05/20/2018 mammogram, 04/15/2018 mammogram, 04/03/2018 mammogram, 03/20/2018 mammogram, and 02/27/2015 mammogram - [facility]. There are scattered fibroglandular elements in both breasts. The patient is status post partial mastectomy right breast at 10 o'clock. There is a stable benign intramammary node in both breasts. No significant masses, calcifications, or other findings are seen in either breast. IMPRESSION: There is no mammographic evidence of malignancy. A 1 year screening mammogram is recommended. This exam was interpreted at Station ID: [id number]. NOTE: For mammograms, a report in lay terms will be sent to the patient. Approximately 15% of breast malignancies will not be visualized mammographically. In the management of a palpable breast mass, a negative mammogram must not discourage biopsy of a clinically suspicious lesion. Electronically Signed By: Thang browne/olivia:01/19/2019 14:49:42 copy to: LEW TOLENTINO copy to: Yaritza Osborn letter sent: Normal Exam ACR BI-RADS Category 2: Benign Finding(s) 3342F
== END ==
PROVIDERS: Internal Medicine Hematology & Oncology; Family Provider Naturopath; PCP Family Medicine; Visit Provider Surgery
DX: R92.8 Other abnormal and inconclusive findings on diagnostic imaging of breast (principal); C50.911 Malignant neoplasm of unspecified site of right female breast
CPT/HCPCS: 36415; 77066; 80053; 85025; G0279

== ENCOUNTER → 2019-06-02 08:19 | Outpatient (CLI) | payer MEDICARE, BC, SELFPAY ==
[2019-06-02 09:38] LABS: Creatinine Urine Random 137.5 mg/dL
[2019-06-02 09:40] LABS: Microalbumin Urine Random 1.1 mg/dL (0-1.6)
[2019-06-02 10:52] LABS: BUN Creatinine Ratio 21.1 (6-22); Blood Urea Nitrogen 19 mg/dL (7-17); Calcium 9.8 mg/dL (8.4-10.2); Carbon Dioxide 30 mmol/L (22-32); Chloride 102 mmol/L (98-107); Estimated Glomerular Filt Rate > 60.0 mL/min (>60); Glucose 70 mg/dL (80-110); HEMOLYSIS < 15 (0-50); Potassium 3.9 mmol/L (3.4-5.1); Sodium 142 mmol/L (137-145)
== END ==
PROVIDERS: PCP Family Medicine; Visit Provider Family Medicine
DX: R79.89 Other specified abnormal findings of blood chemistry (principal)
CPT/HCPCS: 36415; 80048; 82043; 82570

== ENCOUNTER → 2019-07-20 10:04 | Outpatient (CLI) | payer MEDICARE, BC, SELFPAY ==
[2019-07-20 11:09] LABS: BUN Creatinine Ratio 15.5 (6-22); Blood Urea Nitrogen 17 mg/dL (7-17); Calcium 9.8 mg/dL (8.4-10.2); Carbon Dioxide 32 mmol/L (22-32); Chloride 100 mmol/L (98-107); Estimated Glomerular Filt Rate 49.2 mL/min (>60); Glucose 96 mg/dL (80-110); HEMOLYSIS < 15 (0-50); Potassium 4.1 mmol/L (3.4-5.1); Sodium 140 mmol/L (137-145)
[2019-07-20 11:22] LABS: Free T3, Triiodothyronine Free 3.39 pg/mL (2.77-5.27); Free T4, Direct Thyroxine 1.23 ng/dL (0.78-2.19)
[2019-07-20 11:36] LABS: Thyroid Stimulating Hormone 1.71 uIU/mL (0.47-4.68)
[2019-07-23 15:40] LABS: Thyroid Peroxidase Antibodies 54 IU/mL (< 9)
[2019-07-24 15:25] LABS: Triiodothyronine T3 Reverse 17 ng/dL (8-25)
== END ==
PROVIDERS: PCP Family Medicine; Visit Provider Family Medicine
DX: E03.9 Hypothyroidism, unspecified (principal); R79.89 Other specified abnormal findings of blood chemistry
CPT/HCPCS: 36415; 80048; 84439; 84443; 84481; 84482; 86376

== ENCOUNTER → 2019-07-21 14:12 | Outpatient (CLI) | payer MEDICARE, BC, SELFPAY ==
[2019-07-21 15:24] LABS: Creatinine Urine Random 137.3 mg/dL
[2019-07-21 15:28] LABS: Microalbumi Creatinin Ratio Ur 4.3 ug/mg CR (<30); Microalbumin Urine Random < 0.6 mg/dL (0-1.6)
== END ==
PROVIDERS: PCP Family Medicine; Visit Provider Family Medicine
DX: I10 Essential (primary) hypertension (principal); N18.9 Chronic kidney disease, unspecified; N39.0 Urinary tract infection, site not specified
CPT/HCPCS: 82043; 82570

== ENCOUNTER → 2019-07-28 14:10 | Outpatient (CLI) | payer MEDICARE, BC, SELFPAY ==
--- NOTE | 2019-07-28 14:12 | DI.US.S_ITS ---
PROCEDURE: US ABDOMEN COMPLETE INDICATIONS: ABDOMINAL PAIN, ELEVATED CREATININE, HTN TECHNIQUE: Real-time scanning was performed of the abdominal and retroperitoneal organs, with image documentation. COMPARISON: None. FINDINGS: Liver: Liver is normal in size and homogeneous in echotexture. Gallbladder: Multiple gallstones present. No gallbladder wall thickening or pericholecystic fluid. Negative sonographic Gallegos sign. Biliary ducts: Intrahepatic bile ducts are non-dilated. Extrahepatic bile duct caliber measures 2.0 mm. Normal is 6-7 mm or less in diameter, or 10 mm or less post-cholecystectomy. Pancreas: Visualized portions of the pancreas are sonographically normal. Spleen: Spleen is normal in size and homogeneous in echotexture. Kidneys: Kidneys are normal in size and echotexture. Right kidney measures 10.1 cm long; left kidney measures 9.9 cm long. No hydronephrosis or nephrolithiasis. No solid masses. Aorta: Visualized aorta is normal in caliber at less than 3 cm. Iliacs: Proximal common iliac arteries are normal in caliber at less than 2.5 cm. IVC: Intrahepatic inferior vena cava is patent. Miscellaneous: No free abdominal fluid. IMPRESSION: 1. Cholelithiasis without acute cholecystitis. Dictated by: Julian HERMOSILLO Interpreted: Westley Browning MD on 07/28/2019 at 15:36 Approved by: Westley Browning M.D. on 07/28/2019 at 17:18
== END ==
PROVIDERS: PCP Family Medicine; Visit Provider Family Medicine
DX: R10.9 Unspecified abdominal pain (principal); K80.20 Calculus of gallbladder without cholecystitis without obstruction; I10 Essential (primary) hypertension; R79.89 Other specified abnormal findings of blood chemistry
CPT/HCPCS: 76700

== ENCOUNTER → 2019-08-26 07:45 | Outpatient (CLI) | payer MEDICARE, BC, SELFPAY ==
[2019-08-26 09:22] LABS: Blood Urea Nitrogen 16 mg/dL (7-17); Calcium 9.9 mg/dL (8.4-10.2); Carbon Dioxide 33 mmol/L (22-32); Chloride 100 mmol/L (98-107); Estimated Glomerular Filt Rate > 60.0 mL/min (>60); Glucose 79 mg/dL (80-110); HEMOLYSIS < 15 (0-50); Potassium 3.8 mmol/L (3.4-5.1); Sodium 139 mmol/L (137-145)
== END ==
PROVIDERS: PCP Family Medicine; Visit Provider Naturopath
DX: R79.89 Other specified abnormal findings of blood chemistry (principal)
CPT/HCPCS: 36415; 80048

== ENCOUNTER → 2020-02-18 13:16 | Outpatient (CLI) | payer MEDICARE, BC, SELFPAY ==
--- NOTE | 2020-02-18 13:17 | DI.MG.S_ITS ---
BILATERAL DIGITAL SCREENING MAMMOGRAM 3D/2D WITH CAD POST LUMPECTOMY: 02/18/2020 CLINICAL: History of breast cancer. Comparison is made to exams dated: 01/19/2019 mammogram, 04/03/2018 mammogram, 03/20/2018 mammogram, 02/27/2015 mammogram, 05/20/2018 mammogram, and 11/26/2011 mammogram - [facility]. There are scattered fibroglandular elements in both breasts. Current study was also evaluated with a Computer Aided Detection (CAD) system. There are benign post operative findings in the right breast. No significant masses, calcifications, or other findings are seen in either breast. There has been no significant interval change. IMPRESSION: There is no mammographic evidence of malignancy. A 1 year screening mammogram is recommended. This exam was interpreted at Station ID: [id number]. NOTE: For mammograms, a report in lay terms will be sent to the patient. Approximately 15% of breast malignancies will not be visualized mammographically. In the management of a palpable breast mass, a negative mammogram must not discourage biopsy of a clinically suspicious lesion. Electronically Signed By: Kameron garcia/olivia:02/18/2020 14:31:03 copy to: IAIN FIGUEROA copy to: Yaritza Osborn letter sent: Normal Exam ACR BI-RADS Category 2: Benign Finding(s) 3342F
== END ==
PROVIDERS: PCP Family Medicine; Referring Provider Internal Medicine Hematology & Oncology; Visit Provider Internal Medicine Hematology & Oncology
DX: Z12.31 Encounter for screening mammogram for malignant neoplasm of breast (principal); Z85.3 Personal history of malignant neoplasm of breast
CPT/HCPCS: 77063; 77067

== ENCOUNTER → 2020-03-15 11:17 | Outpatient (CLI) | payer MEDICARE, BC, SELFPAY ==
[2020-03-16 06:10] LABS: Calcium 9.9 mg/dL (8.7-10.3); Parathyroid Hormone, Intact 39 pg/mL (15-65)
== END ==
PROVIDERS: PCP Family Medicine; Referring Provider Family Medicine; Visit Provider Family Medicine
DX: Z13.29 Encounter for screening for other suspected endocrine disorder (principal)
CPT/HCPCS: 36415; 82310; 83970

== ENCOUNTER → 2020-04-04 11:34 | Outpatient (CLI) | payer MEDICARE, BC, SELFPAY ==
[2020-04-04 12:40] LABS: Free T3, Triiodothyronine Free 3.52 pg/mL (2.77-5.27); Free T4, Direct Thyroxine 1.09 ng/dL (0.78-2.19)
[2020-04-04 12:54] LABS: Thyroid Stimulating Hormone 1.42 uIU/mL (0.47-4.68)
== END ==
PROVIDERS: PCP Family Medicine; Referring Provider Family Medicine; Visit Provider Family Medicine
DX: E03.9 Hypothyroidism, unspecified (principal)
CPT/HCPCS: 36415; 84439; 84443; 84481

== ENCOUNTER → 2020-05-25 13:35 | Outpatient (CLI) | payer MEDICARE, BC, SELFPAY | PROVIDERS: PCP Family Medicine; Referring Provider Family Medicine; Visit Provider Family Medicine | DX: M85.852 Other specified disorders of bone density and structure, left thigh (principal); Z78.0 Asymptomatic menopausal state; E06.3 Autoimmune thyroiditis; Z82.62 Family history of osteoporosis; Z85.3 Personal history of malignant neoplasm of breast | CPT/HCPCS: 77080 ==

== ENCOUNTER → 2020-06-30 06:54 | Outpatient (CLI) | payer MEDICARE, BC, SELFPAY ==
[2020-06-30 08:43] LABS: Alanine Aminotransferase 25 IU/L (<35); Albumin 4.1 g/dL (3.5-5.0); Albumin Globulin Ratio 1.2 (1.0-2.8); Alkaline Phosphatase 79 U/L (38-126); Aspartate Aminotransferase 35 IU/L (14-36); Bilirubin Total 0.5 mg/dL (0.2-1.3); Blood Urea Nitrogen 15 mg/dL (7-17); Calcium 9.5 mg/dL (8.4-10.2); Carbon Dioxide 32 mmol/L (22-32); Chloride 105 mmol/L (98-107); Cholesterol 215 mg/dL (140-199); Estimated Glomerular Filt Rate > 60.0 mL/min (>60); Globulin 3.3 g/dL (1.7-4.1); Glucose 98 mg/dL (80-110); HDL Cholesterol 74 mg/dL (40-60); HEMOLYSIS < 15 (0-50); LDL Cholesterol Calculated 125 mg/dL (<100); Potassium 4.3 mmol/L (3.4-5.1); Sodium 139 mmol/L (137-145); Total Protein 7.4 g/dL (6.3-8.2); Triglycerides 81 mg/dL (35-150)
[2020-06-30 09:21] LABS: Vitamin D 25 Hydroxy (D3) 32.4 ng/mL (30.0-100.0)
[2020-06-30 14:21] LABS: Creatinine Urine Random 170.5 mg/dL
[2020-06-30 14:25] LABS: Microalbumi Creatinin Ratio Ur 8.2 ug/mg CR (<30); Microalbumin Urine Random 1.4 mg/dL (0-1.6)
[2020-07-05 11:11] LABS: Free T3, Triiodothyronine Free 2.91 pg/mL (2.77-5.27); Free T4, Direct Thyroxine 1.83 ng/dL (0.78-2.19)
[2020-07-06 08:12] LABS: Thyroid Peroxidase Antibodies 120 IU/mL (0-34)
== END ==
PROVIDERS: PCP Family Medicine; Referring Provider Family Medicine; Visit Provider Family Medicine
DX: E66.9 Obesity, unspecified (principal); E83.52 Hypercalcemia; I10 Essential (primary) hypertension; M85.80 Other specified disorders of bone density and structure, unspecified site
CPT/HCPCS: 36415; 80053; 80061; 82043; 82306; 82570; 84439; 84443; 84481; 84482; 86376

== ENCOUNTER 2020-07-13 09:00 | Outpatient (RCR) | payer MEDICARE, BC, SELFPAY ==
--- NOTE | 2020-05-26 16:52 | PT.OIE ---
Current Diagnoses Pain in right hip (05/26/20) Pain in left knee (05/26/20) Past Medical History (Last Updated 06/13/19 @ 10:25 by Yaritza Osborn DO) Benign familial tremor (Chronic 2004) Chicken pox (Resolved 1956) Chronic back pain (Chronic 2007) Elevated cholesterol (Acute) Amaury's thyroiditis (Chronic 2012) Hemorrhoids (Resolved 1999) Hypertension (Chronic 2004) Hypothyroid (Chronic) Invasive ductal carcinoma of right breast, stage 1 (Acute) Measles (Resolved 1957) Mumps (Resolved 1955) Obstructive sleep apnea (Chronic 2012) Perianal fissure (Acute) Postmenopausal (Acute) Rubella (Resolved 1956) Spinal stenosis (Acute) Uterine polyp (Resolved 2011) Past Surgical History (Last Updated 06/13/19 @ 10:25 by Yaritza Osborn DO) Anesthesia (Resolved) History of episiotomy (Resolved 1973) Perianal fistula (Resolved 1987) Status post cataract extraction of both eyes with insertion of intraocular lens (Acute) Status post right breast lumpectomy (Acute ~05/2018) Visit Care Team Role Provider Type Yaritza Osborn DO Attending Provider Physician Primary Care Provider Referring Provider Specialty: [facility] Address: [address] [place] [address], [address], [facility] Email: [email or web address] Physical Therapy Initial Evaluation PT-OP-A Visit Information Start: 05/23/20 19:58 Freq: Status: Active Protocol: Document 05/26/20 13:35 LRN (Rec: 05/26/20 14:27 LRN [id number]) Out-Patient Physical Therapy Visit Information Visit Information Visit Type Initial Evaluation Visit Start Time 13:35 Visit Stop Time 14:27 Total Visit Minutes 52 Visit Number 1 Evaluation Information Evaluation Date 05/26/20 Precautions Precautions CA history: Breast cancer w/R lumpectomy - 05/2018. Back pain due to arthritis. Osteopenia L femoral neck. HTN, Hypothyroid, Amaury's thyroiditis PT-OP-B Current Condition Start: 05/23/20 19:58 Freq: Status: Active Protocol: Document 05/26/20 13:35 LRN (Rec: 05/26/20 14:27 LRN [id number]) Current Condition History of Current Condition Onset Date 2.5 months ago. 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 States it is greatly affecting her activity level. States Dr. Osborn is concerned about her kidneys and doesn't want her taking anti-inflammatory medications. States she initially took IBP for only 2 days and found it very helpful in reducing L knee pain. Activity helps decreased the knee pain but not the hip. Prior Treatments and Tests None. 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 Pre TASHI was a walker , walking 8 miles with a walking group that stopped due to COVID outbreak. Her activity level drastically reduced. 2 months ago at [employer] was stepping up with L leg and heard a pop in the back of the L knee. Had nauseating pain for 10 minutes , then it dissipated quite a bit. Then started compensating with gait by limping and 2-3 wks ago the R hip started to hurt. PT was decided needed. Had a massage this morning with a message from massage therapist saying she had an inflamed TFL, HT of Glut min & med., up IT Band. Treatment Goals Patient/Caregiver Goals Pt goals with therapy is to get back to moving comfortably (hike with back pain 2-3/10), able to sit with legs folded > 30 minutes, roll in bed without hip pain, and be told which ex equipment of her neighbors she can safely exercise with. 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 Baseline Function- Recreation/Hobbies Hiked routinely 4-5 miles with 600-800 elevation gain. Walked easily around [place] [employer]. Baseline Function- Other Able to sit with legs folded for 1-2 hours. Current Functional Impairments (Reported) Functional Limitations- ADL's Rolling around in bed is sometimes painful. Able to sit with legs folded no more than 20 minutes. Functional Limitations- Mobility/Gait Walking in the house and mailbox (100 yards). Ambulates with an antalgic gait Functional Limitations- Work/School No change with work duties. Personal Factors Other Personal Factors That May Effect Arthritis causing back pain, Therapy/Recovery Breast cancer w/lumpectomy right May 2018. Cancer free thus far. Obesity (BMI 30-39.9) per record review. PT-OP-C Subjective Start: 05/23/20 19:58 Freq: Status: Active Protocol: Document 05/26/20 13:35 LRN (Rec: 05/26/20 14:27 LRN [id number]) Patient Questionnaires Lower Extremity Functional Scale LEFS Score 45 LEFS Impairment 40 to 59% Impaired (Score 32- 47) OP-PT Pain Assessment Location R hip Pain Location Details Posterolateral R hip Intensity 3 Description Aching,Radiating Description- Other Radiates lateral thigh, anterior lower leg Frequency 80% or the time Pain Aggravating Factors Standing,Sitting Other Pain Aggravating Factors Hip AB and weight bearing L knee Pain Location Details Road Tester knee above and below the joint line Intensity 3 Scale Used Numeric (0 - 10) Description Aching,Dull Frequency 60% of the time Pain Aggravating Factors Sitting,Bending PT-OP-D Balance Start: 05/23/20 19:58 Freq: Status: Active Protocol: Document 05/26/20 13:35 LRN (Rec: 05/26/20 14:49 LRN [id number]) Balance Tests Single Limb Standing Single Limb- Right 60+. hands crossing chest Single Limb- Left 30. hands crossing chest Tandem Tandem Standing 60+ either foot behind, Hands on hips PT-OP-G Mobility & Gait Start: 05/23/20 19:58 Freq: Status: Active Protocol: Document 05/26/20 13:35 LRN (Rec: 05/26/20 14:27 LRN [id number]) OP Gait Assessment Gait Gait Assistance Required: Independent Assistive Devices Assistive Device None Gait Deviations General Gait Pattern Antalgic Factors Limiting Gait Function Factors Limiting Gait Function Decreased Activity Tolerance, Decreased Strength,Pain Comments Gait Comments Leans to R with gait. PT-OP-J Posture/Palpation/Skin Start: 05/23/20 19:58 Freq: Status: Active Protocol: Document 05/26/20 13:35 LRN (Rec: 05/26/20 14:49 LRN [id number]) Posture Evaluation Position Standing Head/C-Spine Posture Forward Head T-Spine Posture Flattened L-Spine Posture Increased Lordosis Pelvis Posture Anteriorly Tilted Weight Distribution Weight Shifted Left Hip Posture (L) Flexed,(R) Flexed Knee Posture (L) Genu Valgus,(R) Genu Valgus Ankle/Foot Posture (L) Supinated,(R) Supinated Foot Arch (L) High Arch,(R) High Arch Palpation Assessment Location L knee Palpation Location Posterior aspect of the knee and above/below joint line Palpation Findings Tenderness R hip Palpation Location TFL, ITBand, Greater Trochanter, Gluteals Palpation Findings Tenderness Palpation Details Tightness R TFL and Gluteals compared to L. PT-OP-K Range of Motion Start: 05/23/20 19:58 Freq: Status: Active Protocol: Document 05/26/20 13:35 LRN (Rec: 05/26/20 14:27 LRN [id number]) Hip Goniometric Range of Motion Hip Right Passive Hip ROM WFL No Testing Position Supine Straight Leg Raise 100 Internal Rotation 15 External Rotation 70 Left Passive Hip ROM WFL Yes Testing Position Supine Straight Leg Raise 100 Internal Rotation 25 External Rotation 70 Hip ROM Limitations Hip ROM Limitations Pain Knee Goniometric Range of Motion Knee Right Knee ROM WFL Yes Patient Position Supine Flexion Active (degrees) 125 Extension Active (degrees) 0 Left Knee ROM WFL Yes Patient Position Supine Flexion Active (degrees) 125 Extension Active (degrees) 0 Knee ROM Limitations Knee ROM Limitations Swelling PT-OP-L Special Tests Start: 05/23/20 19:58 Freq: Status: Active Protocol: Document 05/26/20 13:35 LRN (Rec: 05/26/20 14:49 LRN [id number]) Special Tests Hip Special Tests Straight Leg Raise Test Results - Bilaterally Comments PSLR 100 deg's prior to hamstring tightness. Scour Test Test Results - Right Comments No pain [facility] Resisted Hip Flexion Test Results - Right Comments No pain Log Roll Test Test Results - Right Comments No pain RADHA Test Results + Right Comments Pain at R hip PT-OP-M Strength Start: 05/23/20 19:58 Freq: Status: Active Protocol: Document 05/26/20 13:35 LRN (Rec: 05/26/20 14:27 LRN [id number]) Hip Strength Hip Manual Muscle Testing Right Extension (S1) 3+ Fair+ Abduction 2 Poor Comments Strength is 5/5 except as indicated above. Pain with strength testing. Left Comments Strength is generally 5/5. Knee Strength Knee Manual Muscle Testing Right Comments 5/5 generally Left Comments 5/5 generally PT-OP-Q Treatments Start: 05/23/20 19:58 Freq: Status: Active Protocol: Document 05/26/20 13:35 LRN (Rec: 05/26/20 14:49 LRN [id number]) Therapeutic Exercises Supine Exercises Piriformis stretch Supine Exercise Name Piriformis stretch Side right Reps/Minutes 1' Lateral Hip stretch Supine Exercise Name Lateral hip stretch Side right Reps/Minutes 1' Self-Care/Home Management Treatment Education Other Education Discussed results of evaluation and goals. Educated pt in use of cryotherapy for pain management. Activities Self-Care/Home Management Activities I/S pt in HEP: Hip stretches (lateral hip and Piriformis- cross legged). PT-OP-T Assessment and Plan Start: 05/23/20 19:58 Freq: Status: Active Protocol: Document 05/26/20 13:35 LRN (Rec: 05/26/20 14:27 LRN [id number]) Physical Therapy Assessment Rehab Potential Rehabilitation Potential Good Evaluation Complexity Number of Personal Factors/Comorbidities 3 or More Number of Body Systems Impaired 4 or More Clinical Presentation at Evaluation Evolving Impairments Impairments Activity Tolerance,Edema,Gait, Pain,ROM,Strength Goals Four Impairment Swelling in L knee limiting knee flexion tolerance. Short Term Goal (STG) Decrease swelling in the L knee with reduction in posterior knee pain to 0-1/10. STG Duration 06/30/20 Skilled Nursing Goal (LTG) Pt will be able to sit by pulling legs under her for greater than 20 minutes. LTG Duration 08/24/20 Three Impairment Decreased R hip strength (AB 3 /5, ext 35) preventing ex walking/hiking. Short Term Goal (STG) Increase R hip strength to no less than 4/5 with pt able to roll around in bed without R hip pain. STG Duration 06/30/20 Skilled Nursing Goal (LTG) Pt will be able to get back to walking/hiking comfortably 1- 2 miles and confident to progress independently ( acceptable back pain of 2-3/ 10). LTG Duration 08/24/20 Two Impairment R hip pain (rated 4/10) limiting gait mechanics ( antalgic gait). Short Term Goal (STG) Decrease R hip pain to 0/10. STG Duration 06/30/20 Skilled Nursing Goal (LTG) Pt will be able to demonstrate normal gait mechanics. LTG Duration 08/24/20 One Impairment Pt lacks an appropriate self care HEP. Short Term Goal (STG) Pt will be independent in a R hip AB/ext strengthening and hip ER/IR ROM ex's. STG Duration 06/09/20 Skilled Nursing Goal (LTG) Pt will be independent in a self care HEP to include strengthening ex equipment that would be appropriate for the pt to continue independently. LTG Duration 08/24/20 Assessment Summary Assessment Pt presents with R sciatic pain that she feels is her greatest hinderance to her functional abilities. She has soft tissue dysfunction of the R hip and LE with possible new onset of R anterior lower leg pain that may be related to back. Further assessment will be needed to rule out back involvement with R lower leg pain. Her L knee is normal with ROM and strength, but she has symptoms of soft tissue dysfunction of swelling and pain in the posterior aspect of the knee. Further assessment is needed for possible internal derangement of the knee. The also presents with a dysfunctional gait due to her pain that is probably exacerbating her R hip and L knee pain. The pt will benefit from skilled physical therapy for R hip and L knee to return her to a prior level of function. Her rehabilitation program may be extended because there are 2 areas of concern to rehabilitate, with possible hip/low back involvement as well. Physical Therapy Plan Frequency and Duration Frequency of Treatment 2x/Week Plan of Care Start Date 05/26/20 Plan of Care End Date 08/24/20 Therapeutic Interventions Therapeutic Interventions Home Exercise Program,Patient/ Caregiver Education,Self-Care/ Home Management Next Visit Focus/Plan Next Note Type Treatment Note Next Visit Plan Assess L knee for internal derangement. Review HEP previously issued & progress pt onto HEP: ROM of R hip rotators, lateral hip & strengthening R hip ext/AB. US to L posterior knee. Manual therapy of R hip rotators, gluteals, TFL & IT Band/low back. Gait training to eliminate antalgic gait. Progress pt towards self are HEP including ex equipment that is available (neighbor).
--- NOTE | 2020-05-29 12:15 | PT.OTN ---
Current Diagnoses Pain in right hip (05/29/20) Pain in left knee (05/29/20) Physical Therapy Treatment Note PT-OP-A Visit Information Start: 05/23/20 19:58 Freq: Status: Active Protocol: Document 05/29/20 11:19 LRN (Rec: 05/29/20 12:14 LRN [id number]) Out-Patient Physical Therapy Visit Information Visit Information Visit Type Treatment Note Visit Start Time 11:19 Visit Stop Time 12:02 Total Visit Minutes 43 Visit Number 2 Evaluation Information Evaluation Date 05/26/20 Precautions Precautions CA history: Breast cancer w/R lumpectomy - 05/2018. Back pain due to arthritis. Osteopenia L femoral neck. HTN, Hypothyroid, Amaury's thyroiditis PT-OP-B Current Condition Start: 05/23/20 19:58 Freq: Status: Active Protocol: Document 05/26/20 13:35 LRN (Rec: 05/26/20 14:27 LRN [id number]) Current Condition History of Current Condition Onset Date 2.5 months ago. Current Complaints Occasional L taker away knee pn, R deep posterolateral hip pn History of Current Condition States the R hip pain is more of a problem than the L knee. States it is greatly affecting her activity level. States Dr. Osborn is concerned about her kidneys and doesn't want her taking anti-inflammatory medications. States she initially took IBP for only 2 days and found it very helpful in reducing L knee pain. Activity helps decreased the knee pain but not the hip. Prior Treatments and Tests None. Developmental History Developmental History Was having weekly personal caregiver sessions prior to COVID. Pre TASHI was a walker , walking 8 miles with a walking group that stopped due to COVID outbreak. Her activity level drastically reduced. 2 months ago at [place] was stepping up with L leg and heard a pop in the back of the L knee. Had nauseating pain for 10 minutes , then it dissipated quite a bit. Then started compensating with gait by limping and 2-3 wks ago the R hip started to hurt. PT was decided needed. Had a massage this morning with a message from massage therapist saying she had an inflamed TFL, HT of Glut min & med., up IT Band. Treatment Goals Patient/Caregiver Goals Pt goals with therapy is to get back to moving comfortably (hike with back pain 2-3/10), able to sit with legs folded > 30 minutes, roll in bed without hip pain, and be told which ex equipment of her neighbors she can safely exercise with. 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 Baseline Function- Recreation/Hobbies Hiked routinely 4-5 miles with 600-800 elevation gain. Walked easily around [facility]. Baseline Function- Other Able to sit with legs folded for 1-2 hours. Current Functional Impairments (Reported) Functional Limitations- ADL's Rolling around in bed is sometimes painful. Able to sit with legs folded no more than 20 minutes. Functional Limitations- Mobility/Gait Walking in the house and mailbox (100 yards). Ambulates with an antalgic gait Functional Limitations- Work/School No change with work duties. Personal Factors Other Personal Factors That May Effect Arthritis causing back pain, Therapy/Recovery Breast cancer w/lumpectomy right May 2018. Cancer free thus far. Obesity (BMI 30-39.9) per record review. PT-OP-C Subjective Start: 05/23/20 19:58 Freq: Status: Active Protocol: Document 05/29/20 11:19 LRN (Rec: 05/29/20 12:14 LRN [id number]) OP-PT Subjective Patient Comments Patient Comments Yesterday was bad, could hardly get out of bed. Did go walking today, having to sit from bench to bench on the [place]. Pain decreased 4 /10 to a 3/10 after therapy. PT-OP-D Balance Start: 05/23/20 19:58 Freq: Status: Active Protocol: Document 05/26/20 13:35 LRN (Rec: 05/26/20 14:49 LRN [id number]) Balance Tests Single Limb Standing Single Limb- Right 60+. hands crossing chest Single Limb- Left 30. hands crossing chest Tandem Tandem Standing 60+ either foot behind, Hands on hips PT-OP-G Mobility & Gait Start: 05/23/20 19:58 Freq: Status: Active Protocol: Document 05/26/20 13:35 LRN (Rec: 05/26/20 14:27 LRN [id number]) OP Gait Assessment Gait Gait Assistance Required: Independent Assistive Devices Assistive Device None Gait Deviations General Gait Pattern Antalgic Factors Limiting Gait Function Factors Limiting Gait Function Decreased Activity Tolerance, Decreased Strength,Pain Comments Gait Comments Leans to R with gait. PT-OP-J Posture/Palpation/Skin Start: 05/23/20 19:58 Freq: Status: Active Protocol: Document 05/26/20 13:35 LRN (Rec: 05/26/20 14:49 LRN [id number]) Posture Evaluation Position Standing Head/C-Spine Posture Forward Head T-Spine Posture Flattened L-Spine Posture Increased Lordosis Pelvis Posture Anteriorly Tilted Weight Distribution Weight Shifted Left Hip Posture (L) Flexed,(R) Flexed Knee Posture (L) Genu Valgus,(R) Genu Valgus Ankle/Foot Posture (L) Supinated,(R) Supinated Foot Arch (L) High Arch,(R) High Arch Palpation Assessment Location L knee Palpation Location Posterior aspect of the knee and above/below joint line Palpation Findings Tenderness R hip Palpation Location TFL, ITBand, Greater Trochanter, Gluteals Palpation Findings Tenderness Palpation Details Tightness R TFL and Gluteals compared to L. PT-OP-K Range of Motion Start: 05/23/20 19:58 Freq: Status: Active Protocol: Document 05/26/20 13:35 LRN (Rec: 05/26/20 14:27 LRN [id number]) Hip Goniometric Range of Motion Hip Right Passive Hip ROM WFL No Testing Position Supine Straight Leg Raise 100 Internal Rotation 15 External Rotation 70 Left Passive Hip ROM WFL Yes Testing Position Supine Straight Leg Raise 100 Internal Rotation 25 External Rotation 70 Hip ROM Limitations Hip ROM Limitations Pain Knee Goniometric Range of Motion Knee Right Knee ROM WFL Yes Patient Position Supine Flexion Active (degrees) 125 Extension Active (degrees) 0 Left Knee ROM WFL Yes Patient Position Supine Flexion Active (degrees) 125 Extension Active (degrees) 0 Knee ROM Limitations Knee ROM Limitations Swelling PT-OP-L Special Tests Start: 05/23/20 19:58 Freq: Status: Active Protocol: Document 05/29/20 11:19 LRN (Rec: 05/29/20 12:14 LRN [id number]) Special Tests Knee Special Tests Valgus- 0 Degrees Test Results negative Comments L knee Posterior Draw Test Results negative Comments L knee Daya's Test Results Negative Comments L knee Bounce Home Test Results negative Comments L knee Anterior Draw Test Results negative Comments L knee PT-OP-M Strength Start: 05/23/20 19:58 Freq: Status: Active Protocol: Document 05/26/20 13:35 LRN (Rec: 05/26/20 14:27 LRN [id number]) Hip Strength Hip Manual Muscle Testing Right Extension (S1) 3+ Fair+ Abduction 2 Poor Comments Strength is 5/5 except as indicated above. Pain with strength testing. Left Comments Strength is generally 5/5. Knee Strength Knee Manual Muscle Testing Right Comments 5/5 generally Left Comments 5/5 generally PT-OP-Q Treatments Start: 05/23/20 19:58 Freq: Status: Active Protocol: Document 05/29/20 11:19 LRN (Rec: 05/29/20 12:14 LRN [id number]) Therapeutic Exercises Supine Exercises Bridging Supine Exercise Name Bridging Reps/Minutes 10x Hip AD stretch Supine Exercise Name Hip AD stretch Side right Reps/Minutes 4' Piriformis stretch Supine Exercise Name knee to opposite shoulder Side right Reps/Minutes 10 hold x 10 Comments Extra time to determine proper positioning and stretch tolerance. Lateral Hip stretch Supine Exercise Name Lateral hip stretch Side bilateral Reps/Minutes 10 hold x 10 Comments L > R. Extra time to determine proper positioning and stretch tolerance. Standing Exercises Gastrocnemius stretch Standing Exercise Name Runners stretch Side left Reps/Minutes 2' Manual Therapy Treatment Soft Tissue Mobilization R IT-Band Body Location R IT Band Mobilization Type Instrument Assisted,Strumming, Sustained Pressure Intensity/Depth Superficial Body Position Sidelying Self-Care/Home Management Treatment Education Patient Education Home Exercise Program Activities Self-Care/Home Management Activities Issued & reviewed HEP handouts : Lateral hip & Piriformis stretch, Hip AB, Ext (bridge) and Gastrocsoleus stretch. PT-OP-T Assessment and Plan Start: 05/23/20 19:58 Freq: Status: Active Protocol: Document 05/29/20 11:19 LRN (Rec: 05/29/20 12:14 LRN [id number]) Physical Therapy Assessment Goals Four Impairment Swelling in L knee limiting knee flexion tolerance. Short Term Goal (STG) Decrease swelling in the L knee with reduction in posterior knee pain to 0-1/10. STG Duration 06/30/20 Otr Van Cdl Truck Driver Goal (LTG) Pt will be able to sit by pulling legs under her for greater than 20 minutes. LTG Duration 08/24/20 Three Impairment Decreased R hip strength (AB 3 /5, ext 35) preventing ex walking/hiking. Short Term Goal (STG) Increase R hip strength to no less than 4/5 with pt able to roll around in bed without R hip pain. STG Duration 06/30/20 Otr Van Cdl Truck Driver Goal (LTG) Pt will be able to get back to walking/hiking comfortably 1- 2 miles and confident to progress independently ( acceptable back pain of 2-3/ 10). LTG Duration 08/24/20 Two Impairment R hip pain (rated 4/10) limiting gait mechanics ( antalgic gait). Short Term Goal (STG) Decrease R hip pain to 0/10. STG Duration 06/30/20 Skilled Nursing Goal (LTG) Pt will be able to demonstrate normal gait mechanics. LTG Duration 08/24/20 One Impairment Pt lacks an appropriate self care HEP. Short Term Goal (STG) Pt will be independent in a R hip AB/ext strengthening and hip ER/IR ROM ex's. STG Duration 06/09/20 Otr Van Cdl Truck Driver Goal (LTG) Pt will be independent in a self care HEP to include strengthening ex equipment that would be appropriate for the pt to continue independently. LTG Duration 08/24/20 (05/29/20: Progressing). Progress Towards Goals Progress Comments R hip pain decreased 4/10 to 3 /10 after therapy. Assessment Summary Assessment STM mildly improved in R ITBand after STM, primarily tender and lumpy at distal end . Tightness of L posterior knee. Pt receptive to education of ex and edema management. Trendelenburg type gait still present. Physical Therapy Plan Frequency and Duration Frequency of Treatment 2x/Week Plan of Care Start Date 05/26/20 Plan of Care End Date 08/24/20 Next Visit Focus/Plan Next Note Type Treatment Note Next Visit Plan Assess L knee for internal derangement. Review HEP previously issued & progress pt onto HEP: ROM of R hip rotators, lateral hip & strengthening R hip ext/AB. US to L posterior knee. Manual therapy of R hip rotators, gluteals, TFL & IT Band/low back. Gait training to eliminate antalgic gait. Progress pt towards self are HEP including ex equipment that is available (neighbor).
--- NOTE | 2020-06-02 16:14 | PT.OTN ---
Current Diagnoses Pain in right hip (06/02/20) Pain in left knee (06/02/20) Physical Therapy Treatment Note PT-OP-A Visit Information Start: 05/23/20 19:58 Freq: Status: Active Protocol: Document 06/02/20 09:51 LRN (Rec: 06/02/20 10:36 LRN [id number]) Out-Patient Physical Therapy Visit Information Visit Information Visit Type Treatment Note Visit Start Time 09:51 Visit Stop Time 10:34 Total Visit Minutes 43 Visit Number 3 Evaluation Information Evaluation Date 05/26/20 Precautions Precautions CA history: Breast cancer w/R lumpectomy - 05/2018. Back pain due to arthritis. Osteopenia L femoral neck. HTN, Hypothyroid, Amaury's thyroiditis PT-OP-B Current Condition Start: 05/23/20 19:58 Freq: Status: Active Protocol: Document 05/26/20 13:35 LRN (Rec: 05/26/20 14:27 LRN [id number]) Current Condition History of Current Condition Onset Date 2.5 months ago. 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 States it is greatly affecting her activity level. States Dr. Osborn is concerned about her kidneys and doesn't want her taking anti-inflammatory medications. States she initially took IBP for only 2 days and found it very helpful in reducing L knee pain. Activity helps decreased the knee pain but not the hip. Prior Treatments and Tests None. 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 Pre TASHI was a walker , walking 8 miles with a walking group that stopped due to COVID outbreak. Her activity level drastically reduced. 2 months ago at [place] was stepping up with L leg and heard a pop in the back of the L knee. Had nauseating pain for 10 minutes , then it dissipated quite a bit. Then started compensating with gait by limping and 2-3 wks ago the R hip started to hurt. PT was decided needed. Had a massage this morning with a message from massage therapist saying she had an inflamed TFL, HT of Glut min & med., up IT Band. Treatment Goals Patient/Caregiver Goals Pt goals with therapy is to get back to moving comfortably (hike with back pain 2-3/10), able to sit with legs folded > 30 minutes, roll in bed without hip pain, and be told which ex equipment of her neighbors she can safely exercise with. 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 Baseline Function- Recreation/Hobbies Hiked routinely 4-5 miles with 600-800 elevation gain. Walked easily around [facility]. Baseline Function- Other Able to sit with legs folded for 1-2 hours. Current Functional Impairments (Reported) Functional Limitations- ADL's Rolling around in bed is sometimes painful. Able to sit with legs folded no more than 20 minutes. Functional Limitations- Mobility/Gait Walking in the house and mailbox (100 yards). Ambulates with an antalgic gait Functional Limitations- Work/School No change with work duties. Personal Factors Other Personal Factors That May Effect Arthritis causing back pain, Therapy/Recovery Breast cancer w/lumpectomy right May 2018. Cancer free thus far. Obesity (BMI 30-39.9) per record review. PT-OP-C Subjective Start: 05/23/20 19:58 Freq: Status: Active Protocol: Document 06/02/20 09:51 LRN (Rec: 06/02/20 10:36 LRN [id number]) OP-PT Subjective Patient Comments Patient Comments L knee is moving a little better, hip is the same. Hip is worst part today. Has been doing ex's and using ice. R hip pain is variable, walking in today pain is 3/10, prone lying 0/10 pain PT-OP-D Balance Start: 05/23/20 19:58 Freq: Status: Active Protocol: Document 05/26/20 13:35 LRN (Rec: 05/26/20 14:49 LRN [id number]) Balance Tests Single Limb Standing Single Limb- Right 60+. hands crossing chest Single Limb- Left 30. hands crossing chest Tandem Tandem Standing 60+ either foot behind, Hands on hips PT-OP-G Mobility & Gait Start: 05/23/20 19:58 Freq: Status: Active Protocol: Document 05/26/20 13:35 LRN (Rec: 05/26/20 14:27 LRN [id number]) OP Gait Assessment Gait Gait Assistance Required: Independent Assistive Devices Assistive Device None Gait Deviations General Gait Pattern Antalgic Factors Limiting Gait Function Factors Limiting Gait Function Decreased Activity Tolerance, Decreased Strength,Pain Comments Gait Comments Leans to R with gait. PT-OP-J Posture/Palpation/Skin Start: 05/23/20 19:58 Freq: Status: Active Protocol: Document 05/26/20 13:35 LRN (Rec: 05/26/20 14:49 LRN [id number]) Posture Evaluation Position Standing Head/C-Spine Posture Forward Head T-Spine Posture Flattened L-Spine Posture Increased Lordosis Pelvis Posture Anteriorly Tilted Weight Distribution Weight Shifted Left Hip Posture (L) Flexed,(R) Flexed Knee Posture (L) Genu Valgus,(R) Genu Valgus Ankle/Foot Posture (L) Supinated,(R) Supinated Foot Arch (L) High Arch,(R) High Arch Palpation Assessment Location L knee Palpation Location Posterior aspect of the knee and above/below joint line Palpation Findings Tenderness R hip Palpation Location TFL, ITBand, Greater Trochanter, Gluteals Palpation Findings Tenderness Palpation Details Tightness R TFL and Gluteals compared to L. PT-OP-K Range of Motion Start: 05/23/20 19:58 Freq: Status: Active Protocol: Document 05/26/20 13:35 LRN (Rec: 05/26/20 14:27 LRN [id number]) Hip Goniometric Range of Motion Hip Right Passive Hip ROM WFL No Testing Position Supine Straight Leg Raise 100 Internal Rotation 15 External Rotation 70 Left Passive Hip ROM WFL Yes Testing Position Supine Straight Leg Raise 100 Internal Rotation 25 External Rotation 70 Hip ROM Limitations Hip ROM Limitations Pain Knee Goniometric Range of Motion Knee Right Knee ROM WFL Yes Patient Position Supine Flexion Active (degrees) 125 Extension Active (degrees) 0 Left Knee ROM WFL Yes Patient Position Supine Flexion Active (degrees) 125 Extension Active (degrees) 0 Knee ROM Limitations Knee ROM Limitations Swelling PT-OP-L Special Tests Start: 05/23/20 19:58 Freq: Status: Active Protocol: Document 06/02/20 09:51 LRN (Rec: 06/02/20 10:36 LRN [id number]) Special Tests Hip Special Tests Straight Leg Raise Test Results - Bilaterally Comments PSLR 100 deg's prior to hamstring tightness. Knee Special Tests Apley's Compression Comments No pain L knee. Varus- 25 Degrees Test Results Negative Comments No pain L knee. Patellar Grind Test Test Results Negative Comments No pain L knee. Valgus- 25 Degrees Test Results negative Comments No pain L knee. Valgus- 0 Degrees Test Results negative Comments No pain L knee. Posterior Draw Test Results negative Comments No pain L knee. Daya's Test Results Negative Comments No pain L knee. Bounce Home Test Results negative Comments No pain L knee. Anterior Draw Test Results negative Comments No pain L knee. PT-OP-M Strength Start: 05/23/20 19:58 Freq: Status: Active Protocol: Document 05/26/20 13:35 LRN (Rec: 05/26/20 14:27 LRN [id number]) Hip Strength Hip Manual Muscle Testing Right Extension (S1) 3+ Fair+ Abduction 2 Poor Comments Strength is 5/5 except as indicated above. Pain with strength testing. Left Comments Strength is generally 5/5. Knee Strength Knee Manual Muscle Testing Right Comments 5/5 generally Left Comments 5/5 generally PT-OP-Q Treatments Start: 05/23/20 19:58 Freq: Status: Active Protocol: Document 06/02/20 09:51 LRN (Rec: 06/02/20 10:36 LRN [id number]) Therapeutic Exercises Supine Exercises Hip ER stretch Supine Exercise Name Fig 4 stretch f/b 10 active stretch Reps/Minutes 3' Comments Extra time to teach and find max movement for stretch SLR Supine Exercise Name SLR Side left Comments Soreness in L groin & gastroc. Bridging Supine Exercise Name Bridging Reps/Minutes 30x Piriformis stretch Supine Exercise Name knee to opposite shoulder Side right Reps/Minutes 10 hold x 10 Comments Extra time to determine proper positioning and stretch tolerance. Lateral Hip stretch Supine Exercise Name Lateral hip stretch Side bilateral Reps/Minutes 10 hold x 10 Comments L > R. Extra time to determine proper positioning and stretch tolerance. Prone Exercises Hip Ext Prone Exercise Name R hip ext strengthening Side right Reps/Minutes 15x Knee flex Prone Exercise Name Knee flex Side bilateral Reps/Minutes 30x Comments L side on return to straight, pt getting pop sensation mid knee jt line Self-Care/Home Management Treatment Education Patient Education Home Exercise Program Activities Self-Care/Home Management Activities Issued Lev 2 T-Band with verbal I/S for pt to use above knees for hip AB exercise. PT-OP-R Modalities Start: 05/23/20 19:58 Freq: Status: Active Protocol: Document 06/02/20 09:51 LRN (Rec: 06/02/20 10:36 LRN [id number]) Ultrasound Therapy Treatment L knee Treatment Duration (minutes) 8 Patient Position Prone Applicator Size (cm2) 2 Mode Setting Continuous Intensity Setting (w/cm2) 1.0 Comments US at posteromedial knee. PT-OP-T Assessment and Plan Start: 05/23/20 19:58 Freq: Status: Active Protocol: Document 06/02/20 09:51 LRN (Rec: 06/02/20 10:36 LRN [id number]) Physical Therapy Assessment Goals Four Impairment Swelling in L knee limiting knee flexion tolerance. Short Term Goal (STG) Decrease swelling in the L knee with reduction in posterior knee pain to 0-1/10. STG Duration 06/30/20 Chief Executive Or Managing Director Goal (LTG) Pt will be able to sit by pulling legs under her for greater than 20 minutes. LTG Duration 08/24/20 Three Impairment Decreased R hip strength (AB 3 /5, ext 35) preventing ex walking/hiking. Short Term Goal (STG) Increase R hip strength to no less than 4/5 with pt able to roll around in bed without R hip pain. STG Duration 06/30/20 (06/01/20: Progressing with exercise) Half-Way Goal (LTG) Pt will be able to get back to walking/hiking comfortably 1- 2 miles and confident to progress independently ( acceptable back pain of 2-3/ 10). LTG Duration 08/24/20 Two Impairment R hip pain (rated 4/10) limiting gait mechanics ( antalgic gait). Short Term Goal (STG) Decrease R hip pain to 0/10. STG Duration 06/30/20 Chief Executive Or Managing Director Goal (LTG) Pt will be able to demonstrate normal gait mechanics. LTG Duration 08/24/20 One Impairment Pt lacks an appropriate self care HEP. Short Term Goal (STG) Pt will be independent in a R hip AB/ext strengthening and hip ER/IR ROM ex's. STG Duration 06/09/20 Half-Way Goal (LTG) Pt will be independent in a self care HEP to include strengthening ex equipment that would be appropriate for the pt to continue independently. LTG Duration 08/24/20 (05/29/20: Progressing). Assessment Summary Assessment No signs of internal derangement of L knee, special tests negative. Popping at L knee appears to be from medial hamstring tendon and not associated with pain. Posterior L knee pain appears related to edema, ?possible cyst at posterior L knee. Physical Therapy Plan Frequency and Duration Frequency of Treatment 2x/Week Plan of Care Start Date 05/26/20 Plan of Care End Date 08/24/20 Next Visit Focus/Plan Next Note Type Treatment Note Next Visit Plan Review R hip ext strengthening and issue HEP; add R hip AB ( sup w/T-Band and sidelie). US to L posterior knee. DTM of R hip rotators, gluteals, TFL & IT Band/low back. Gait training to eliminate antalgic gait. Progress pt towards self are HEP including ex equipment that is available ( neighbor).
--- NOTE | 2020-06-06 13:02 | PT.OTN ---
Current Diagnoses Pain in right hip (06/06/20) Pain in left knee (06/06/20) Physical Therapy Treatment Note PT-OP-A Visit Information Start: 05/23/20 19:58 Freq: Status: Active Protocol: Document 06/06/20 10:37 LRN (Rec: 06/06/20 11:23 LRN [id number]) Out-Patient Physical Therapy Visit Information Visit Information Visit Type Treatment Note Visit Start Time 10:37 Visit Stop Time 11:24 Total Visit Minutes 47 Visit Number 4 Evaluation Information Evaluation Date 05/26/20 Precautions Precautions CA history: Breast cancer w/R lumpectomy - 05/2018. Back pain due to arthritis. Osteopenia L femoral neck. HTN, Hypothyroid, Amaury's thyroiditis PT-OP-B Current Condition Start: 05/23/20 19:58 Freq: Status: Active Protocol: Document 05/26/20 13:35 LRN (Rec: 05/26/20 14:27 LRN [id number]) Current Condition History of Current Condition Onset Date 2.5 months ago. 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 States it is greatly affecting her activity level. States Dr. Osborn is concerned about her kidneys and doesn't want her taking anti-inflammatory medications. States she initially took IBP for only 2 days and found it very helpful in reducing L knee pain. Activity helps decreased the knee pain but not the hip. Prior Treatments and Tests None. Developmental History Developmental History Was having weekly personal companion sessions prior to COVID. Pre TASHI was a walker , walking 8 miles with a walking group that stopped due to COVID outbreak. Her activity level drastically reduced. 2 months ago at [employer] was stepping up with L leg and heard a pop in the back of the L knee. Had nauseating pain for 10 minutes , then it dissipated quite a bit. Then started compensating with gait by limping and 2-3 wks ago the R hip started to hurt. PT was decided needed. Had a massage this morning with a message from massage therapist saying she had an inflamed TFL, HT of Glut min & med., up IT Band. Treatment Goals Patient/Caregiver Goals Pt goals with therapy is to get back to moving comfortably (hike with back pain 2-3/10), able to sit with legs folded > 30 minutes, roll in bed without hip pain, and be told which ex equipment of her neighbors she can safely exercise with. 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 Baseline Function- Recreation/Hobbies Hiked routinely 4-5 miles with 600-800 elevation gain. Walked easily around [facility]. Baseline Function- Other Able to sit with legs folded for 1-2 hours. Current Functional Impairments (Reported) Functional Limitations- ADL's Rolling around in bed is sometimes painful. Able to sit with legs folded no more than 20 minutes. Functional Limitations- Mobility/Gait Walking in the house and mailbox (100 yards). Ambulates with an antalgic gait Functional Limitations- Work/School No change with work duties. Personal Factors Other Personal Factors That May Effect Arthritis causing back pain, Therapy/Recovery Breast cancer w/lumpectomy right May 2018. Cancer free thus far. Obesity (BMI 30-39.9) per record review. PT-OP-C Subjective Start: 05/23/20 19:58 Freq: Status: Active Protocol: Document 06/06/20 10:37 LRN (Rec: 06/06/20 11:23 LRN [id number]) OP-PT Subjective Patient Comments Patient Comments R hip ain 2-11/15 after having massage yesterday. States after last session she was in pain for a couple days before it started to lessen and massage was very helpful. States the L knee hurts behind the knee only slightly. The US was helpful. PT-OP-D Balance Start: 05/23/20 19:58 Freq: Status: Active Protocol: Document 05/26/20 13:35 LRN (Rec: 05/26/20 14:49 LRN [id number]) Balance Tests Single Limb Standing Single Limb- Right 60+. hands crossing chest Single Limb- Left 30. hands crossing chest Tandem Tandem Standing 60+ either foot behind, Hands on hips PT-OP-G Mobility & Gait Start: 05/23/20 19:58 Freq: Status: Active Protocol: Document 05/26/20 13:35 LRN (Rec: 09/18/20 14:27 LRN [id number]) OP Gait Assessment Gait Gait Assistance Required: Independent Assistive Devices Assistive Device None Gait Deviations General Gait Pattern Antalgic Factors Limiting Gait Function Factors Limiting Gait Function Decreased Activity Tolerance, Decreased Strength,Pain Comments Gait Comments Leans to R with gait. PT-OP-J Posture/Palpation/Skin Start: 05/23/20 19:58 Freq: Status: Active Protocol: Document 05/26/20 13:35 LRN (Rec: 05/26/20 14:49 LRN [id number]) Posture Evaluation Position Standing Head/C-Spine Posture Forward Head T-Spine Posture Flattened L-Spine Posture Increased Lordosis Pelvis Posture Anteriorly Tilted Weight Distribution Weight Shifted Left Hip Posture (L) Flexed,(R) Flexed Knee Posture (L) Genu Valgus,(R) Genu Valgus Ankle/Foot Posture (L) Supinated,(R) Supinated Foot Arch (L) High Arch,(R) High Arch Palpation Assessment Location L knee Palpation Location Posterior aspect of the knee and above/below joint line Palpation Findings Tenderness R hip Palpation Location TFL, ITBand, Greater Trochanter, Gluteals Palpation Findings Tenderness Palpation Details Tightness R TFL and Gluteals compared to L. PT-OP-K Range of Motion Start: 05/23/20 19:58 Freq: Status: Active Protocol: Document 05/26/20 13:35 LRN (Rec: 05/26/20 14:27 LRN [id number]) Hip Goniometric Range of Motion Hip Right Passive Hip ROM WFL No Testing Position Supine Straight Leg Raise 100 Internal Rotation 15 External Rotation 70 Left Passive Hip ROM WFL Yes Testing Position Supine Straight Leg Raise 100 Internal Rotation 25 External Rotation 70 Hip ROM Limitations Hip ROM Limitations Pain Knee Goniometric Range of Motion Knee Right Knee ROM WFL Yes Patient Position Supine Flexion Active (degrees) 125 Extension Active (degrees) 0 Left Knee ROM WFL Yes Patient Position Supine Flexion Active (degrees) 125 Extension Active (degrees) 0 Knee ROM Limitations Knee ROM Limitations Swelling PT-OP-L Special Tests Start: 05/23/20 19:58 Freq: Status: Active Protocol: Document 06/02/20 09:51 LRN (Rec: 06/02/20 10:36 LRN [id number]) Special Tests Hip Special Tests Straight Leg Raise Test Results - Bilaterally Comments PSLR 100 deg's prior to hamstring tightness. Knee Special Tests Apley's Compression Comments No pain L knee. Varus- 25 Degrees Test Results Negative Comments No pain L knee. Patellar Grind Test Test Results Negative Comments No pain L knee. Valgus- 25 Degrees Test Results negative Comments No pain L knee. Valgus- 0 Degrees Test Results negative Comments No pain L knee. Posterior Draw Test Results negative Comments No pain L knee. Daya's Test Results Negative Comments No pain L knee. Bounce Home Test Results negative Comments No pain L knee. Anterior Draw Test Results negative Comments No pain L knee. PT-OP-M Strength Start: 05/23/20 19:58 Freq: Status: Active Protocol: Document 05/26/20 13:35 LRN (Rec: 05/26/20 14:27 LRN [id number]) Hip Strength Hip Manual Muscle Testing Right Extension (S1) 3+ Fair+ Abduction 2 Poor Comments Strength is 5/5 except as indicated above. Pain with strength testing. Left Comments Strength is generally 5/5. 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 Lateral Hip stretch Supine Exercise Name Lateral hip stretch Side bilateral Reps/Minutes 60 hold x 2 Comments L > R. Extra time to determine proper positioning and stretch tolerance. Prone Exercises Hip Ext Prone Exercise Name R hip ext strengthening Side right Reps/Minutes 10x 3 Knee flex Prone Exercise Name Knee flex Side bilateral Reps/Minutes 30x Comments L side on return to straight, pt getting pop sensation mid knee jt line Sitting Exercises Shotgun pelvic self mob Sitting Exercise Name [place] Hip AD/AB x 3 Side bilateral Equipment Used Alternating hold 6-10 Reps/Minutes 3' Manual Therapy Treatment Joint Mobilizations R innominate Joint Correcting an inflare/ anteriorly rotated innominate Reps/Duration 8' PT-OP-R Modalities Start: 05/23/20 19:58 Freq: Status: Active Protocol: Document 06/06/20 10:37 LRN (Rec: 06/06/20 11:23 LRN [id number]) Ultrasound Therapy Treatment L knee Treatment Duration (minutes) 8 Patient Position Prone Applicator Size (cm2) 10 Mode Setting Continuous Intensity Setting (w/cm2) 1.0 Comments US at posterior knee. PT-OP-T Assessment and Plan Start: 05/23/20 19:58 Freq: Status: Active Protocol: Document 06/06/20 10:37 LRN (Rec: 06/06/20 11:23 LRN [id number]) Physical Therapy Assessment Goals Four Impairment Swelling in L knee limiting knee flexion tolerance. Short Term Goal (STG) Decrease swelling in the L knee with reduction in posterior knee pain to 0-1/10. STG Duration 06/30/20 Chemist Helper Goal (LTG) Pt will be able to sit by pulling legs under her for greater than 20 minutes. LTG Duration 08/24/20 Three Impairment Decreased R hip strength (AB 3 /5, ext 35) preventing ex walking/hiking. Short Term Goal (STG) Increase R hip strength to no less than 4/5 with pt able to roll around in bed without R hip pain. STG Duration 06/30/20 (06/01/20: Progressing with exercise) Detention Goal (LTG) Pt will be able to get back to walking/hiking comfortably 1- 2 miles and confident to progress independently ( acceptable back pain of 2-3/ 10). LTG Duration 08/24/20 Two Impairment R hip pain (rated 4/10) limiting gait mechanics ( antalgic gait). Short Term Goal (STG) Decrease R hip pain to 0/10. STG Duration 06/30/20 Chemist Helper Goal (LTG) Pt will be able to demonstrate normal gait mechanics. LTG Duration 08/24/20 One Impairment Pt lacks an appropriate self care HEP. Short Term Goal (STG) Pt will be independent in a R hip AB/ext strengthening and hip ER/IR ROM ex's. STG Duration 06/09/20 (06/06/20: Progressing ) Detention Goal (LTG) Pt will be independent in a self care HEP to include strengthening ex equipment that would be appropriate for the pt to continue independently. LTG Duration 08/24/20 (05/29/20: Progressing). Assessment Summary Assessment Hip ER stretch causes same deep hip pain, same as March on R and SLS on RLE. Tightening Core helps decrease hip pain. R innominate appears anteriorly rotated and inflared, corrected with manual therapy. Pt notes scoliosis of lower spine, but is not apparent. Physical Therapy Plan Frequency and Duration Frequency of Treatment 2x/Week Plan of Care Start Date 05/26/20 Plan of Care End Date 08/24/20 Next Visit Focus/Plan Next Note Type Treatment Note Next Visit Plan R hip ext strengthening issue HEP; add R hip AB (sup w/T- Band and sidelie). US to L posterior knee. DTM of R hip rotators, gluteals, TFL & IT Band/low back. Gait training to eliminate antalgic gait. Progress pt towards self care HEP including ex equipment that is available (neighbor).
--- NOTE | 2020-06-09 12:30 | PT.OTN ---
Current Diagnoses Pain in right hip (06/09/20) Pain in left knee (06/09/20) Physical Therapy Treatment Note PT-OP-A Visit Information Start: 05/23/20 19:58 Freq: Status: Active Protocol: Document 06/09/20 11:25 LRN (Rec: 06/09/20 12:29 LRN [id number]) Out-Patient Physical Therapy Visit Information Visit Information Visit Type Treatment Note Visit Start Time 11:25 Visit Stop Time 12:16 Total Visit Minutes 51 Visit Number 5 Evaluation Information Evaluation Date 05/26/20 Precautions Precautions CA history: Breast cancer w/R lumpectomy - 05/2018. Back pain due to arthritis. Osteopenia L femoral neck. HTN, Hypothyroid, Amaury's thyroiditis PT-OP-B Current Condition Start: 05/23/20 19:58 Freq: Status: Active Protocol: Document 05/26/20 13:35 LRN (Rec: 05/26/20 14:27 LRN [id number]) Current Condition History of Current Condition Onset Date 2.5 months ago. 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 States it is greatly affecting her activity level. States Dr. Osborn is concerned about her kidneys and doesn't want her taking anti-inflammatory medications. States she initially took IBP for only 2 days and found it very helpful in reducing L knee pain. Activity helps decreased the knee pain but not the hip. Prior Treatments and Tests None. 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 Pre TASHI was a walker , walking 8 miles with a walking group that stopped due to COVID outbreak. Her activity level drastically reduced. 2 months ago at [employer] was stepping up with L leg and heard a pop in the back of the L knee. Had nauseating pain for 10 minutes , then it dissipated quite a bit. Then started compensating with gait by limping and 2-3 wks ago the R hip started to hurt. PT was decided needed. Had a massage this morning with a message from massage therapist saying she had an inflamed TFL, HT of Glut min & med., up IT Band. Treatment Goals Patient/Caregiver Goals Pt goals with therapy is to get back to moving comfortably (hike with back pain 2-3/10), able to sit with legs folded > 30 minutes, roll in bed without hip pain, and be told which ex equipment of her neighbors she can safely exercise with. 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 Baseline Function- Recreation/Hobbies Hiked routinely 4-5 miles with 600-800 elevation gain. Walked easily around [facility]. Baseline Function- Other Able to sit with legs folded for 1-2 hours. Current Functional Impairments (Reported) Functional Limitations- ADL's Rolling around in bed is sometimes painful. Able to sit with legs folded no more than 20 minutes. Functional Limitations- Mobility/Gait Walking in the house and mailbox (100 yards). Ambulates with an antalgic gait Functional Limitations- Work/School No change with work duties. Personal Factors Other Personal Factors That May Effect Arthritis causing back pain, Therapy/Recovery Breast cancer w/lumpectomy right May 2018. Cancer free thus far. Obesity (BMI 30-39.9) per record review. PT-OP-C Subjective Start: 05/23/20 19:58 Freq: Status: Active Protocol: Document 06/09/20 11:25 LRN (Rec: 06/09/20 12:29 LRN [id number]) OP-PT Subjective Patient Comments Patient Comments Sleeping is easier because now has more options of lying for pain. After the exercises at home the hip actually felt better than worse. Able to hobble around the block yesterday. PT-OP-D Balance Start: 05/23/20 19:58 Freq: Status: Active Protocol: Document 05/26/20 13:35 LRN (Rec: 05/26/20 14:49 LRN [id number]) Balance Tests Single Limb Standing Single Limb- Right 60+. hands crossing chest Single Limb- Left 30. hands crossing chest Tandem Tandem Standing 60+ either foot behind, Hands on hips PT-OP-G Mobility & Gait Start: 05/23/20 19:58 Freq: Status: Active Protocol: Document 05/26/20 13:35 LRN (Rec: 05/26/20 14:27 LRN [id number]) OP Gait Assessment Gait Gait Assistance Required: Independent Assistive Devices Assistive Device None Gait Deviations General Gait Pattern Antalgic Factors Limiting Gait Function Factors Limiting Gait Function Decreased Activity Tolerance, Decreased Strength,Pain Comments Gait Comments Leans to R with gait. PT-OP-J Posture/Palpation/Skin Start: 05/23/20 19:58 Freq: Status: Active Protocol: Document 05/26/20 13:35 LRN (Rec: 05/26/20 14:49 LRN [id number]) Posture Evaluation Position Standing Head/C-Spine Posture Forward Head T-Spine Posture Flattened L-Spine Posture Increased Lordosis Pelvis Posture Anteriorly Tilted Weight Distribution Weight Shifted Left Hip Posture (L) Flexed,(R) Flexed Knee Posture (L) Genu Valgus,(R) Genu Valgus Ankle/Foot Posture (L) Supinated,(R) Supinated Foot Arch (L) High Arch,(R) High Arch Palpation Assessment Location L knee Palpation Location Posterior aspect of the knee and above/below joint line Palpation Findings Tenderness R hip Palpation Location TFL, ITBand, Greater Trochanter, Gluteals Palpation Findings Tenderness Palpation Details Tightness R TFL and Gluteals compared to L. PT-OP-K Range of Motion Start: 05/23/20 19:58 Freq: Status: Active Protocol: Document 05/26/20 13:35 LRN (Rec: 05/26/20 14:27 LRN [id number]) Hip Goniometric Range of Motion Hip Right Passive Hip ROM WFL No Testing Position Supine Straight Leg Raise 100 Internal Rotation 15 External Rotation 70 Left Passive Hip ROM WFL Yes Testing Position Supine Straight Leg Raise 100 Internal Rotation 25 External Rotation 70 Hip ROM Limitations Hip ROM Limitations Pain Knee Goniometric Range of Motion Knee Right Knee ROM WFL Yes Patient Position Supine Flexion Active (degrees) 125 Extension Active (degrees) 0 Left Knee ROM WFL Yes Patient Position Supine Flexion Active (degrees) 125 Extension Active (degrees) 0 Knee ROM Limitations Knee ROM Limitations Swelling PT-OP-L Special Tests Start: 05/23/20 19:58 Freq: Status: Active Protocol: Document 06/02/20 09:51 LRN (Rec: 06/02/20 10:36 LRN [id number]) Special Tests Hip Special Tests Straight Leg Raise Test Results - Bilaterally Comments PSLR 100 deg's prior to hamstring tightness. Knee Special Tests Apley's Compression Comments No pain L knee. Varus- 25 Degrees Test Results Negative Comments No pain L knee. Patellar Grind Test Test Results Negative Comments No pain L knee. Valgus- 25 Degrees Test Results negative Comments No pain L knee. Valgus- 0 Degrees Test Results negative Comments No pain L knee. Posterior Draw Test Results negative Comments No pain L knee. Daya's Test Results Negative Comments No pain L knee. Bounce Home Test Results negative Comments No pain L knee. Anterior Draw Test Results negative Comments No pain L knee. PT-OP-M Strength Start: 05/23/20 19:58 Freq: Status: Active Protocol: Document 05/26/20 13:35 LRN (Rec: 05/26/20 14:27 LRN [id number]) Hip Strength Hip Manual Muscle Testing Right Extension (S1) 3+ Fair+ Abduction 2 Poor Comments Strength is 5/5 except as indicated above. Pain with strength testing. Left Comments Strength is generally 5/5. Knee Strength Knee Manual Muscle Testing Right Comments 5/5 generally Left Comments 5/5 generally PT-OP-Q Treatments Start: 05/23/20 19:58 Freq: Status: Active Protocol: Document 06/09/20 11:25 LRN (Rec: 06/09/20 12:29 LRN [id number]) Therapeutic Exercises Supine Exercises TA tightening Supine Exercise Name TA Tightening and core stab holding during breathing Reps/Minutes 10' Comments Pt aware after training, not able to maintain TA tight during breathing. 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 Lateral Hip stretch Supine Exercise Name Lateral hip stretch Side bilateral Reps/Minutes 60 hold x 1 Comments L > R. Extra time to determine proper positioning and stretch tolerance. Prone Exercises Prayer stretch Prone Exercise Name Prayer stretch Reps/Minutes 2' Hip Ext Prone Exercise Name R > L hip ext strengthening Side bilateral Reps/Minutes 10x 3 Knee flex Prone Exercise Name Knee flex Side bilateral Reps/Minutes 2' Comments L side on return to straight, pt getting pop sensation mid knee jt line Sidelying Exercises R TFL/IT Band stretch Sidelying Exercise Name R TFL/IT Band (R leg behind bottom leg) Side right Reps/Minutes 2' Standing Exercises Gastrocnemius stretch Standing Exercise Name Runners stretch Side left Reps/Minutes 2' Manual Therapy Treatment Soft Tissue Mobilization R TFL Body Location R TFL Mobilization Type Instrument Assisted,Sustained Pressure Intensity/Depth Moderate Body Position Sidelying R IT-Band Body Location R IT Band Mobilization Type Instrument Assisted,Sustained Pressure Intensity/Depth Superficial Body Position Sidelying Joint Mobilizations R innominate Joint Correcting an inflare Reps/Duration 5' Self-Care/Home Management Treatment Education Other Education Pt education in the core with handout issued describing TA. Activities Self-Care/Home Management Activities Issued & reviewed HEP: IT Band stretch. Issued and reviewed anatomy description of core with discussion of TA and importance of TA contraction. PT-OP-R Modalities Start: 05/23/20 19:58 Freq: Status: Active Protocol: Document 06/06/20 10:37 LRN (Rec: 06/06/20 11:23 LRN [id number]) Ultrasound Therapy Treatment L knee Treatment Duration (minutes) 8 Patient Position Prone Applicator Size (cm2) 10 Mode Setting Continuous Intensity Setting (w/cm2) 1.0 Comments US at posterior knee. PT-OP-T Assessment and Plan Start: 05/23/20 19:58 Freq: Status: Active Protocol: Document 06/09/20 11:25 LRN (Rec: 06/09/20 12:29 LRN [id number]) Physical Therapy Assessment Goals Four Impairment Swelling in L knee limiting knee flexion tolerance. Short Term Goal (STG) Decrease swelling in the L knee with reduction in posterior knee pain to 0-1/10. STG Duration 06/30/20 Intermediate Goal (LTG) Pt will be able to sit by pulling legs under her for greater than 20 minutes. LTG Duration 08/24/20 Three Impairment Decreased R hip strength (AB 3 /5, ext 35) preventing ex walking/hiking. Short Term Goal (STG) Increase R hip strength to no less than 4/5 with pt able to roll around in bed without R hip pain. STG Duration 06/30/20 (06/01/20: Progressing with exercise) Intermediate Goal (LTG) Pt will be able to get back to walking/hiking comfortably 1- 2 miles and confident to progress independently ( acceptable back pain of 2-3/ 10). LTG Duration 08/24/20 Two Impairment R hip pain (rated 4/10) limiting gait mechanics ( antalgic gait). Short Term Goal (STG) Decrease R hip pain to 0/10. STG Duration 06/30/20 Auto Radiator Mechanic Goal (LTG) Pt will be able to demonstrate normal gait mechanics. LTG Duration 08/24/20 One Impairment Pt lacks an appropriate self care HEP. Short Term Goal (STG) Pt will be independent in a R hip AB/ext strengthening and hip ER/IR ROM ex's. STG Duration 06/09/20 (06/06/20: Progressing ) Intermediate Goal (LTG) Pt will be independent in a self care HEP to include strengthening ex equipment that would be appropriate for the pt to continue independently. LTG Duration 08/24/20 (06/09/20: Progressing). Assessment Summary Assessment Pt knows her HEP well and is progressing with strengthening of the R hip. Correction of R hip inflare corrected anter rotation. Pt TA is not reflexive and she is not able to maintain TA hold with breathing. Her R hip/IT band/ TFL is less tender. Pt progressing well, she needs to hold back on activities instead of exercising through the pain (on her walks). Physical Therapy Plan Frequency and Duration Frequency of Treatment 2x/Week Plan of Care Start Date 05/26/20 Plan of Care End Date 08/24/20 Next Visit Focus/Plan Next Note Type Treatment Note Next Visit Plan Try US to L posterior knee. R hip ext strengthening issue HEP; add R hip AB (sup w/T- Band and sidelie). DTM R hip TFL & IT Band, ?low back. Gait training to eliminate antalgic gait. Progress pt towards self care HEP including ex equipment that is available (neighbor).
--- NOTE | 2020-06-13 16:28 | PT.OTN ---
Current Diagnoses Pain in right hip (06/13/20) Pain in left knee (06/13/20) Physical Therapy Treatment Note PT-OP-A Visit Information Start: 05/23/20 19:58 Freq: Status: Active Protocol: Document 06/13/20 13:35 LRN (Rec: 06/13/20 14:19 LRN [id number]) Out-Patient Physical Therapy Visit Information Visit Information Visit Type Treatment Note Visit Start Time 13:35 Visit Stop Time 14:17 Total Visit Minutes 42 Visit Number 6 Evaluation Information Evaluation Date 05/26/20 Precautions Precautions CA history: Breast cancer w/R lumpectomy - 05/2018. Back pain due to arthritis. Osteopenia L femoral neck. HTN, Hypothyroid, Amaury's thyroiditis PT-OP-B Current Condition Start: 05/23/20 19:58 Freq: Status: Active Protocol: Document 05/26/20 13:35 LRN (Rec: 05/26/20 14:27 LRN [id number]) Current Condition History of Current Condition Onset Date 2.5 months ago. 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 States it is greatly affecting her activity level. States Dr. Osborn is concerned about her kidneys and doesn't want her taking anti-inflammatory medications. States she initially took IBP for only 2 days and found it very helpful in reducing L knee pain. Activity helps decreased the knee pain but not the hip. Prior Treatments and Tests None. 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 Pre TASHI was a walker , walking 8 miles with a walking group that stopped due to COVID outbreak. Her activity level drastically reduced. 2 months ago at [employer] was stepping up with L leg and heard a pop in the back of the L knee. Had nauseating pain for 10 minutes , then it dissipated quite a bit. Then started compensating with gait by limping and 2-3 wks ago the R hip started to hurt. PT was decided needed. Had a massage this morning with a message from massage therapist saying she had an inflamed TFL, HT of Glut min & med., up IT Band. Treatment Goals Patient/Caregiver Goals Pt goals with therapy is to get back to moving comfortably (hike with back pain 2-3/10), able to sit with legs folded > 30 minutes, roll in bed without hip pain, and be told which ex equipment of her neighbors she can safely exercise with. 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 Baseline Function- Recreation/Hobbies Hiked routinely 4-5 miles with 600-800 elevation gain. Walked easily around [facility]. Baseline Function- Other Able to sit with legs folded for 1-2 hours. Current Functional Impairments (Reported) Functional Limitations- ADL's Rolling around in bed is sometimes painful. Able to sit with legs folded no more than 20 minutes. Functional Limitations- Mobility/Gait Walking in the house and mailbox (100 yards). Ambulates with an antalgic gait Functional Limitations- Work/School No change with work duties. Personal Factors Other Personal Factors That May Effect Arthritis causing back pain, Therapy/Recovery Breast cancer w/lumpectomy right May 2018. Cancer free thus far. Obesity (BMI 30-39.9) per record review. PT-OP-C Subjective Start: 05/23/20 19:58 Freq: Status: Active Protocol: Document 06/13/20 13:35 LRN (Rec: 06/13/20 14:19 LRN [id number]) OP-PT Subjective Patient Comments Patient Comments States she now has L lateral lower leg pain. R hip is a bigger problem. PT-OP-D Balance Start: 05/23/20 19:58 Freq: Status: Active Protocol: Document 05/26/20 13:35 LRN (Rec: 05/26/20 14:49 LRN [id number]) Balance Tests Single Limb Standing Single Limb- Right 60+. hands crossing chest Single Limb- Left 30. hands crossing chest Tandem Tandem Standing 60+ either foot behind, Hands on hips PT-OP-G Mobility & Gait Start: 05/23/20 19:58 Freq: Status: Active Protocol: Document 05/26/20 13:35 LRN (Rec: 05/26/20 14:27 LRN [id number]) OP Gait Assessment Gait Gait Assistance Required: Independent Assistive Devices Assistive Device None Gait Deviations General Gait Pattern Antalgic Factors Limiting Gait Function Factors Limiting Gait Function Decreased Activity Tolerance, Decreased Strength,Pain Comments Gait Comments Leans to R with gait. PT-OP-J Posture/Palpation/Skin Start: 05/23/20 19:58 Freq: Status: Active Protocol: Document 05/26/20 13:35 LRN (Rec: 05/26/20 14:49 LRN [id number]) Posture Evaluation Position Standing Head/C-Spine Posture Forward Head T-Spine Posture Flattened L-Spine Posture Increased Lordosis Pelvis Posture Anteriorly Tilted Weight Distribution Weight Shifted Left Hip Posture (L) Flexed,(R) Flexed Knee Posture (L) Genu Valgus,(R) Genu Valgus Ankle/Foot Posture (L) Supinated,(R) Supinated Foot Arch (L) High Arch,(R) High Arch Palpation Assessment Location L knee Palpation Location Posterior aspect of the knee and above/below joint line Palpation Findings Tenderness R hip Palpation Location TFL, ITBand, Greater Trochanter, Gluteals Palpation Findings Tenderness Palpation Details Tightness R TFL and Gluteals compared to L. PT-OP-K Range of Motion Start: 05/23/20 19:58 Freq: Status: Active Protocol: Document 05/26/20 13:35 LRN (Rec: 05/26/20 14:27 LRN [id number]) Hip Goniometric Range of Motion Hip Right Passive Hip ROM WFL No Testing Position Supine Straight Leg Raise 100 Internal Rotation 15 External Rotation 70 Left Passive Hip ROM WFL Yes Testing Position Supine Straight Leg Raise 100 Internal Rotation 25 External Rotation 70 Hip ROM Limitations Hip ROM Limitations Pain Knee Goniometric Range of Motion Knee Right Knee ROM WFL Yes Patient Position Supine Flexion Active (degrees) 125 Extension Active (degrees) 0 Left Knee ROM WFL Yes Patient Position Supine Flexion Active (degrees) 125 Extension Active (degrees) 0 Knee ROM Limitations Knee ROM Limitations Swelling PT-OP-L Special Tests Start: 05/23/20 19:58 Freq: Status: Active Protocol: Document 06/02/20 09:51 LRN (Rec: 06/02/20 10:36 LRN [id number]) Special Tests Hip Special Tests Straight Leg Raise Test Results - Bilaterally Comments PSLR 100 deg's prior to hamstring tightness. Knee Special Tests Apley's Compression Comments No pain L knee. Varus- 25 Degrees Test Results Negative Comments No pain L knee. Patellar Grind Test Test Results Negative Comments No pain L knee. Valgus- 25 Degrees Test Results negative Comments No pain L knee. Valgus- 0 Degrees Test Results negative Comments No pain L knee. Posterior Draw Test Results negative Comments No pain L knee. Daya's Test Results Negative Comments No pain L knee. Bounce Home Test Results negative Comments No pain L knee. Anterior Draw Test Results negative Comments No pain L knee. PT-OP-M Strength Start: 05/23/20 19:58 Freq: Status: Active Protocol: Document 05/26/20 13:35 LRN (Rec: 05/26/20 14:27 LRN [id number]) Hip Strength Hip Manual Muscle Testing Right Extension (S1) 3+ Fair+ Abduction 2 Poor Comments Strength is 5/5 except as indicated above. Pain with strength testing. Left Comments Strength is generally 5/5. 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 find max movement for stretch Prone Exercises Prayer stretch Prone Exercise Name Prayer stretch Reps/Minutes 2' Hip Ext Prone Exercise Name R > L hip ext strengthening Side bilateral Reps/Minutes 15x & 10x 2 on right; 10x 3 left Sidelying Exercises R TFL/IT Band stretch Sidelying Exercise Name R TFL/IT Band (R leg behind bottom leg) Side right Reps/Minutes 3' Comments Longer hold with stretch Manual Therapy Treatment Soft Tissue Mobilization R Anterior lower leg Body Location R anterior lower leg Mobilization Type Cross-Friction,Strumming Intensity/Depth Moderate Body Position Supine PT-OP-R Modalities Start: 05/23/20 19:58 Freq: Status: Active Protocol: Document 06/13/20 13:35 LRN (Rec: 06/13/20 14:19 LRN [id number]) Ultrasound Therapy Treatment L knee Treatment Duration (minutes) 8 Patient Position Prone Applicator Size (cm2) 10 Mode Setting Continuous Intensity Setting (w/cm2) 1.0 Comments US at posterior knee. PT-OP-T Assessment and Plan Start: 05/23/20 19:58 Freq: Status: Active Protocol: Document 06/13/20 13:35 LRN (Rec: 06/13/20 14:19 LRN [id number]) Physical Therapy Assessment Goals Four Impairment Swelling in L knee limiting knee flexion tolerance. Short Term Goal (STG) Decrease swelling in the L knee with reduction in posterior knee pain to 0-1/10. (06/13/20: L knee full flexion without pain after ultrasound ) STG Duration 06/30/20 (06/13/20: Improving , pain 1/10 prior to US, afterward 0/10). Usp Goal (LTG) Pt will be able to sit by pulling legs under her for greater than 20 minutes. LTG Duration 08/24/20 (06/13/20: Progressing) Three Impairment Decreased R hip strength (AB 3 /5, ext 35) preventing ex walking/hiking. Short Term Goal (STG) Increase R hip strength to no less than 4/5 with pt able to roll around in bed without R hip pain. STG Duration 06/30/20 (06/01/20: Progressing with exercise) Coconut Jelly Roller Goal (LTG) Pt will be able to get back to walking/hiking comfortably 1- 2 miles and confident to progress independently ( acceptable back pain of 2-3/ 10). LTG Duration 08/24/20 Two Impairment R hip pain (rated 4/10) limiting gait mechanics ( antalgic gait). Short Term Goal (STG) Decrease R hip pain to 0/10. STG Duration 06/30/20 Coconut Jelly Roller Goal (LTG) Pt will be able to demonstrate normal gait mechanics. LTG Duration 08/24/20 One Impairment Pt lacks an appropriate self care HEP. Short Term Goal (STG) Pt will be independent in a R hip AB/ext strengthening and hip ER/IR ROM ex's. STG Duration 06/09/20 (06/06/20: Progressing ) Usp Goal (LTG) Pt will be independent in a self care HEP to include strengthening ex equipment that would be appropriate for the pt to continue independently. LTG Duration 08/24/20 (06/09/20: Progressing). Progress Towards Goals Progress Comments Posterior L knee pain start of therapy 09/17; after therapy 0 . Goal #4 Progressing. Pt reports ability to sit by pulling her legs under her for 10'. R hip pain is limiting gait. Assessment Summary Assessment R lower leg pain with R Fig 4 stretch; possibly due to too much ER mobility. R greater trochanter/IT Band pain limiting gait and appears to be causing Trendelenburg type gait. L posterior knee pain almost resolved. Mild swelling may be causing / pain. Physical Therapy Plan Frequency and Duration Frequency of Treatment 2x/Week Plan of Care Start Date 05/26/20 Plan of Care End Date 08/24/20 Next Visit Focus/Plan Next Note Type Treatment Note Next Visit Plan Try US to R hip and if needed, L posterior knee. Gait training to eliminate antalgic gait. R hip ext strengthening issue HEP; add R hip AB (sup w/T- Band and sidelie). DTM R hip TFL & IT Band, ?low back. Progress pt towards self care HEP including ex equipment that is available (neighbor).
--- NOTE | 2020-06-15 17:56 | PT.OTN ---
Current Diagnoses Pain in right hip (06/15/20) Pain in left knee (06/15/20) Physical Therapy Treatment Note PT-OP-A Visit Information Start: 05/23/20 19:58 Freq: Status: Active Protocol: Document 06/15/20 09:03 LRN (Rec: 06/15/20 09:53 LRN [id number]) Out-Patient Physical Therapy Visit Information Visit Information Visit Type Treatment Note Visit Start Time 09:04 Visit Stop Time 09:53 Total Visit Minutes 49 Visit Number 7 Evaluation Information Evaluation Date 05/26/20 Precautions Precautions CA history: Breast cancer w/R lumpectomy - 05/2018. Back pain due to arthritis. Osteopenia L femoral neck. HTN, Hypothyroid, Amaury's thyroiditis PT-OP-B Current Condition Start: 05/23/20 19:58 Freq: Status: Active Protocol: Document 05/26/20 13:35 LRN (Rec: 05/26/20 14:27 LRN [id number]) Current Condition History of Current Condition Onset Date 2.5 months ago. 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 States it is greatly affecting her activity level. States Dr. Osborn is concerned about her kidneys and doesn't want her taking anti-inflammatory medications. States she initially took IBP for only 2 days and found it very helpful in reducing L knee pain. Activity helps decreased the knee pain but not the hip. Prior Treatments and Tests None. 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 Pre TASHI was a walker , walking 8 miles with a walking group that stopped due to COVID outbreak. Her activity level drastically reduced. 2 months ago at [employer] was stepping up with L leg and heard a pop in the back of the L knee. Had nauseating pain for 10 minutes , then it dissipated quite a bit. Then started compensating with gait by limping and 2-3 wks ago the R hip started to hurt. PT was decided needed. Had a massage this morning with a message from massage therapist saying she had an inflamed TFL, HT of Glut min & med., up IT Band. Treatment Goals Patient/Caregiver Goals Pt goals with therapy is to get back to moving comfortably (hike with back pain 2-3/10), able to sit with legs folded > 30 minutes, roll in bed without hip pain, and be told which ex equipment of her neighbors she can safely exercise with. 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 Baseline Function- Recreation/Hobbies Hiked routinely 4-5 miles with 600-800 elevation gain. Walked easily around [facility]. Baseline Function- Other Able to sit with legs folded for 1-2 hours. Current Functional Impairments (Reported) Functional Limitations- ADL's Rolling around in bed is sometimes painful. Able to sit with legs folded no more than 20 minutes. Functional Limitations- Mobility/Gait Walking in the house and mailbox (100 yards). Ambulates with an antalgic gait Functional Limitations- Work/School No change with work duties. Personal Factors Other Personal Factors That May Effect Arthritis causing back pain, Therapy/Recovery Breast cancer w/lumpectomy right May 2018. Cancer free thus far. Obesity (BMI 30-39.9) per record review. PT-OP-C Subjective Start: 05/23/20 19:58 Freq: Status: Active Protocol: Document 06/15/20 09:03 LRN (Rec: 06/15/20 09:53 LRN [id number]) OP-PT Subjective Patient Comments Patient Comments States she hurt a lot once she reached her car after the last session. States the pain lasted a few days. Didn't do ex's this morning. Pain 4/10 to start, 2/10 to end. PT-OP-D Balance Start: 05/23/20 19:58 Freq: Status: Active Protocol: Document 05/26/20 13:35 LRN (Rec: 05/26/20 14:49 LRN [id number]) Balance Tests Single Limb Standing Single Limb- Right 60+. hands crossing chest Single Limb- Left 30. hands crossing chest Tandem Tandem Standing 60+ either foot behind, Hands on hips PT-OP-G Mobility & Gait Start: 05/23/20 19:58 Freq: Status: Active Protocol: Document 05/26/20 13:35 LRN (Rec: 05/26/20 14:27 LRN [id number]) OP Gait Assessment Gait Gait Assistance Required: Independent Assistive Devices Assistive Device None Gait Deviations General Gait Pattern Antalgic Factors Limiting Gait Function Factors Limiting Gait Function Decreased Activity Tolerance, Decreased Strength,Pain Comments Gait Comments Leans to R with gait. PT-OP-J Posture/Palpation/Skin Start: 05/23/20 19:58 Freq: Status: Active Protocol: Document 05/26/20 13:35 LRN (Rec: 05/26/20 14:49 LRN [id number]) Posture Evaluation Position Standing Head/C-Spine Posture Forward Head T-Spine Posture Flattened L-Spine Posture Increased Lordosis Pelvis Posture Anteriorly Tilted Weight Distribution Weight Shifted Left Hip Posture (L) Flexed,(R) Flexed Knee Posture (L) Genu Valgus,(R) Genu Valgus Ankle/Foot Posture (L) Supinated,(R) Supinated Foot Arch (L) High Arch,(R) High Arch Palpation Assessment Location L knee Palpation Location Posterior aspect of the knee and above/below joint line Palpation Findings Tenderness R hip Palpation Location TFL, ITBand, Greater Trochanter, Gluteals Palpation Findings Tenderness Palpation Details Tightness R TFL and Gluteals compared to L. PT-OP-K Range of Motion Start: 05/23/20 19:58 Freq: Status: Active Protocol: Document 05/26/20 13:35 LRN (Rec: 05/26/20 14:27 LRN [id number]) Hip Goniometric Range of Motion Hip Right Passive Hip ROM WFL No Testing Position Supine Straight Leg Raise 100 Internal Rotation 15 External Rotation 70 Left Passive Hip ROM WFL Yes Testing Position Supine Straight Leg Raise 100 Internal Rotation 25 External Rotation 70 Hip ROM Limitations Hip ROM Limitations Pain Knee Goniometric Range of Motion Knee Right Knee ROM WFL Yes Patient Position Supine Flexion Active (degrees) 125 Extension Active (degrees) 0 Left Knee ROM WFL Yes Patient Position Supine Flexion Active (degrees) 125 Extension Active (degrees) 0 Knee ROM Limitations Knee ROM Limitations Swelling PT-OP-L Special Tests Start: 05/23/20 19:58 Freq: Status: Active Protocol: Document 06/02/20 09:51 LRN (Rec: 06/02/20 10:36 LRN [id number]) Special Tests Hip Special Tests Straight Leg Raise Test Results - Bilaterally Comments PSLR 100 deg's prior to hamstring tightness. Knee Special Tests Apley's Compression Comments No pain L knee. Varus- 25 Degrees Test Results Negative Comments No pain L knee. Patellar Grind Test Test Results Negative Comments No pain L knee. Valgus- 25 Degrees Test Results negative Comments No pain L knee. Valgus- 0 Degrees Test Results negative Comments No pain L knee. Posterior Draw Test Results negative Comments No pain L knee. Daya's Test Results Negative Comments No pain L knee. Bounce Home Test Results negative Comments No pain L knee. Anterior Draw Test Results negative Comments No pain L knee. PT-OP-M Strength Start: 05/23/20 19:58 Freq: Status: Active Protocol: Document 05/26/20 13:35 LRN (Rec: 05/26/20 14:27 LRN [id number]) Hip Strength Hip Manual Muscle Testing Right Extension (S1) 3+ Fair+ Abduction 2 Poor Comments Strength is 5/5 except as indicated above. Pain with strength testing. Left Comments Strength is generally 5/5. Knee Strength Knee Manual Muscle Testing Right Comments 5/5 generally Left Comments 5/5 generally PT-OP-Q Treatments Start: 05/23/20 19:58 Freq: Status: Active Protocol: Document 06/15/20 09:03 LRN (Rec: 06/15/20 09:53 LRN [id number]) Therapeutic Exercises Supine Exercises DKTC Supine Exercise Name DKTC Reps/Minutes 2' Comments Pain down R Lower leg Bridging Supine Exercise Name Bridging Reps/Minutes 30x Sidelying Exercises R TFL/IT Band stretch Sidelying Exercise Name R TFL/IT Band (R leg behind bottom leg) Side right Reps/Minutes 3' Comments Longer hold with stretch Manual Therapy Treatment Soft Tissue Mobilization R Anterior lower leg Body Location R anterior lower leg Mobilization Type Cross-Friction,Strumming Intensity/Depth Moderate Body Position Supine R TFL Body Location R TFL Mobilization Type Instrument Assisted,Sustained Pressure Intensity/Depth Moderate Body Position Sidelying R IT-Band Body Location R IT Band Mobilization Type Instrument Assisted,Sustained Pressure Intensity/Depth Superficial Body Position Sidelying Joint Mobilizations L innominate Joint L innominate Direction Correction for an inflare/ posteriorly rotated innominate Body Position Supine PT-OP-R Modalities Start: 05/23/20 19:58 Freq: Status: Active Protocol: Document 06/15/20 09:03 LRN (Rec: 06/15/20 09:53 LRN [id number]) Ultrasound Therapy Treatment R Inferior Sacral Border Treatment Duration (minutes) 4 Patient Position Sidelying Mode Setting Pulsed Duty Cycle 50% Intensity Setting (w/cm2) 1.0 R Gtr Trochanter bursa Treatment Duration (minutes) 4 Patient Position Sidelying Duty Cycle 50% Intensity Setting (w/cm2) 1.0 PT-OP-T Assessment and Plan Start: 05/23/20 19:58 Freq: Status: Active Protocol: Document 06/15/20 09:03 LRN (Rec: 06/15/20 09:53 LRN [id number]) Physical Therapy Assessment Goals Four Impairment Swelling in L knee limiting knee flexion tolerance. Short Term Goal (STG) Decrease swelling in the L knee with reduction in posterior knee pain to 0-1/10. (06/13/20: L knee full flexion without pain after ultrasound ) STG Duration 06/30/20 (06/13/20: Improving , pain 1/10 prior to US, afterward 0/10). Irrigationist Goal (LTG) Pt will be able to sit by pulling legs under her for greater than 20 minutes. LTG Duration 08/24/20 (06/13/20: Progressing) Three Impairment Decreased R hip strength (AB 3 /5, ext 35) preventing ex walking/hiking. Short Term Goal (STG) Increase R hip strength to no less than 4/5 with pt able to roll around in bed without R hip pain. STG Duration 06/30/20 (06/01/20: Progressing with exercise) Irrigationist Goal (LTG) Pt will be able to get back to walking/hiking comfortably 1- 2 miles and confident to progress independently ( acceptable back pain of 2-3/ 10). LTG Duration 08/24/20 Two Impairment R hip pain (rated 4/10) limiting gait mechanics ( antalgic gait). Short Term Goal (STG) Decrease R hip pain to 0/10. STG Duration 06/30/20 Fpc Goal (LTG) Pt will be able to demonstrate normal gait mechanics. LTG Duration 08/24/20 One Impairment Pt lacks an appropriate self care HEP. Short Term Goal (STG) Pt will be independent in a R hip AB/ext strengthening and hip ER/IR ROM ex's. STG Duration 06/09/20 (06/06/20: Progressing ) Fpc Goal (LTG) Pt will be independent in a self care HEP to include strengthening ex equipment that would be appropriate for the pt to continue independently. LTG Duration 08/24/20 (06/09/20: Progressing). Progress Towards Goals Progress Comments R hip pain decreased from 4/10 to 2 /10 after treatment. Assessment Summary Assessment Most of pt's pain was at R lower sacral border, greater trochanter inferiorly and posteriorly and IT Band distally at knee and lateral quad. Pt did not have significant relief of R hip pain after Ultrasound; therefore expect pain is R Piriformis syndrome exacerbated primarily with innominate positioning & instability of pelvis. L knee pain is less with mild swelling posterior & posteromedial. Physical Therapy Plan Frequency and Duration Frequency of Treatment 2x/Week Plan of Care Start Date 05/26/20 Plan of Care End Date 08/24/20 Next Visit Focus/Plan Next Note Type Treatment Note Next Visit Plan Try US to L posterior/ posteromedial knee. R Hip stretches for Piriformis syndrome & correction of innominate dysfunction. Check november test. Gait training to eliminate antalgic gait. R hip ext strengthening issue HEP; add R hip AB (sup w/T- Band and sidelie). DTM R hip TFL & IT Band, ?low back. Progress pt towards self care HEP including ex equipment that is available (neighbor).
--- NOTE | 2020-06-19 10:15 | PT.OTN ---
Current Diagnoses Pain in right hip (06/19/20) Pain in left knee (06/19/20) Physical Therapy Treatment Note PT-OP-A Visit Information Start: 05/23/20 19:58 Freq: Status: Active Protocol: Document 06/19/20 09:29 MA (Rec: 06/19/20 12:00 MA [id number]) Out-Patient Physical Therapy Visit Information Visit Information Visit Type Treatment Note Visit Start Time 09:30 Visit Stop Time 10:14 Total Visit Minutes 44 Visit Number 8 Number of RESIDENTIAL SUBCONTRACTOR Visits 1 PT-OP-B Current Condition Start: 05/23/20 19:58 Freq: Status: Active Protocol: Document 05/26/20 13:35 LRN (Rec: 05/26/20 14:27 LRN [id number]) Current Condition History of Current Condition Onset Date 2.5 months ago. Current Complaints Occasional L hide and skin classer knee pn, R deep posterolateral hip pn History of Current Condition States the R hip pain is more of a problem than the L knee. States it is greatly affecting her activity level. States Dr. Osborn is concerned about her kidneys and doesn't want her taking anti-inflammatory medications. States she initially took IBP for only 2 days and found it very helpful in reducing L knee pain. Activity helps decreased the knee pain but not the hip. Prior Treatments and Tests None. 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 Pre TASHI was a walker , walking 8 miles with a walking group that stopped due to COVID outbreak. Her activity level drastically reduced. 2 months ago at [employer] was stepping up with L leg and heard a pop in the back of the L knee. Had nauseating pain for 10 minutes , then it dissipated quite a bit. Then started compensating with gait by limping and 2-3 wks ago the R hip started to hurt. PT was decided needed. Had a massage this morning with a message from massage therapist saying she had an inflamed TFL, HT of Glut min & med., up IT Band. Treatment Goals Patient/Caregiver Goals Pt goals with therapy is to get back to moving comfortably (hike with back pain 2-3/10), able to sit with legs folded > 30 minutes, roll in bed without hip pain, and be told which ex equipment of her neighbors she can safely exercise with. 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 Baseline Function- Recreation/Hobbies Hiked routinely 4-5 miles with 600-800 elevation gain. Walked easily around [facility]. Baseline Function- Other Able to sit with legs folded for 1-2 hours. Current Functional Impairments (Reported) Functional Limitations- ADL's Rolling around in bed is sometimes painful. Able to sit with legs folded no more than 20 minutes. Functional Limitations- Mobility/Gait Walking in the house and mailbox (100 yards). Ambulates with an antalgic gait Functional Limitations- Work/School No change with work duties. Personal Factors Other Personal Factors That May Effect Arthritis causing back pain, Therapy/Recovery Breast cancer w/lumpectomy right May 2018. Cancer free thus far. Obesity (BMI 30-39.9) per record review. PT-OP-C Subjective Start: 05/23/20 19:58 Freq: Status: Active Protocol: Document 06/19/20 09:29 MA (Rec: 06/19/20 12:00 MA [id number]) OP-PT Subjective Patient Comments Patient Comments Pt states she has been having less pain but has had some pain behind her left calf this morning Patient Reported Progress Improving PT-OP-D Balance Start: 05/23/20 19:58 Freq: Status: Active Protocol: Document 05/26/20 13:35 LRN (Rec: 05/26/20 14:49 LRN [id number]) Balance Tests Single Limb Standing Single Limb- Right 60+. hands crossing chest Single Limb- Left 30. hands crossing chest Tandem Tandem Standing 60+ either foot behind, Hands on hips PT-OP-G Mobility & Gait Start: 05/23/20 19:58 Freq: Status: Active Protocol: Document 05/26/20 13:35 LRN (Rec: 05/26/20 14:27 LRN [id number]) OP Gait Assessment Gait Gait Assistance Required: Independent Assistive Devices Assistive Device None Gait Deviations General Gait Pattern Antalgic Factors Limiting Gait Function Factors Limiting Gait Function Decreased Activity Tolerance, Decreased Strength,Pain Comments Gait Comments Leans to R with gait. PT-OP-J Posture/Palpation/Skin Start: 05/23/20 19:58 Freq: Status: Active Protocol: Document 05/26/20 13:35 LRN (Rec: 05/26/20 14:49 LRN [id number]) Posture Evaluation Position Standing Head/C-Spine Posture Forward Head T-Spine Posture Flattened L-Spine Posture Increased Lordosis Pelvis Posture Anteriorly Tilted Weight Distribution Weight Shifted Left Hip Posture (L) Flexed,(R) Flexed Knee Posture (L) Genu Valgus,(R) Genu Valgus Ankle/Foot Posture (L) Supinated,(R) Supinated Foot Arch (L) High Arch,(R) High Arch Palpation Assessment Location L knee Palpation Location Posterior aspect of the knee and above/below joint line Palpation Findings Tenderness R hip Palpation Location TFL, ITBand, Greater Trochanter, Gluteals Palpation Findings Tenderness Palpation Details Tightness R TFL and Gluteals compared to L. PT-OP-K Range of Motion Start: 05/23/20 19:58 Freq: Status: Active Protocol: Document 05/26/20 13:35 LRN (Rec: 05/26/20 14:27 LRN [id number]) Hip Goniometric Range of Motion Hip Right Passive Hip ROM WFL No Testing Position Supine Straight Leg Raise 100 Internal Rotation 15 External Rotation 70 Left Passive Hip ROM WFL Yes Testing Position Supine Straight Leg Raise 100 Internal Rotation 25 External Rotation 70 Hip ROM Limitations Hip ROM Limitations Pain Knee Goniometric Range of Motion Knee Right Knee ROM WFL Yes Patient Position Supine Flexion Active (degrees) 125 Extension Active (degrees) 0 Left Knee ROM WFL Yes Patient Position Supine Flexion Active (degrees) 125 Extension Active (degrees) 0 Knee ROM Limitations Knee ROM Limitations Swelling PT-OP-L Special Tests Start: 05/23/20 19:58 Freq: Status: Active Protocol: Document 06/02/20 09:51 LRN (Rec: 06/02/20 10:36 LRN [id number]) Special Tests Hip Special Tests Straight Leg Raise Test Results - Bilaterally Comments PSLR 100 deg's prior to hamstring tightness. Knee Special Tests Apley's Compression Comments No pain L knee. Varus- 25 Degrees Test Results Negative Comments No pain L knee. Patellar Grind Test Test Results Negative Comments No pain L knee. Valgus- 25 Degrees Test Results negative Comments No pain L knee. Valgus- 0 Degrees Test Results negative Comments No pain L knee. Posterior Draw Test Results negative Comments No pain L knee. Daya's Test Results Negative Comments No pain L knee. Bounce Home Test Results negative Comments No pain L knee. Anterior Draw Test Results negative Comments No pain L knee. PT-OP-M Strength Start: 05/23/20 19:58 Freq: Status: Active Protocol: Document 05/26/20 13:35 LRN (Rec: 05/26/20 14:27 LRN [id number]) Hip Strength Hip Manual Muscle Testing Right Extension (S1) 3+ Fair+ Abduction 2 Poor Comments Strength is 5/5 except as indicated above. Pain with strength testing. Left Comments Strength is generally 5/5. Knee Strength Knee Manual Muscle Testing Right Comments 5/5 generally Left Comments 5/5 generally PT-OP-Q Treatments Start: 05/23/20 19:58 Freq: Status: Active Protocol: Document 06/19/20 09:29 MA (Rec: 06/19/20 12:00 MA [id number]) Cardio Equipment Recumbent Stepper (Sci-Fit) Duration (Minutes) 6 Resistance 3.5 Seat Position 8 Other pt needs to be reminded to keep left heel down Therapeutic Exercises Supine Exercises Hip AB/AD Supine Exercise Name abduction Side bilateral Resistance #2 TB Reps/Minutes 2x15 Comments added to HEP Bridging Supine Exercise Name Bridging Reps/Minutes 2x15 Piriformis stretch Reps/Minutes 2x30 sec Sidelying Exercises Abduction Resistance TB #2 Reps/Minutes 2x15 Comments VC to keep hips stacked Manual Therapy Treatment Soft Tissue Mobilization R TFL Body Location R TFL Mobilization Type Instrument Assisted,Sustained Pressure Intensity/Depth Moderate Body Position Sidelying R IT-Band Body Location R IT Band Mobilization Type Instrument Assisted,Sustained Pressure Intensity/Depth Superficial Body Position Sidelying PT-OP-R Modalities Start: 05/23/20 19:58 Freq: Status: Active Protocol: Document 06/19/20 18:37 MA (Rec: 06/19/20 18:37 MA [id number]) Ultrasound Therapy Treatment L knee Treatment Duration (minutes) 8 Patient Position Prone Coupling Medium Ultrasound Gel Applicator Size (cm2) 5 Duty Cycle 50% Intensity Setting (w/cm2) 1.0 PT-OP-T Assessment and Plan Start: 05/23/20 19:58 Freq: Status: Active Protocol: Document 06/19/20 18:29 MA (Rec: 06/19/20 18:35 MA [id number]) Physical Therapy Assessment Assessment Summary Assessment Pt had decreased pain in posterior L calf after STM and ultrasound. Mild discomfort was felt during piriformis stretching. VC were needed for sidelying abduction to keep hips stack and avoid rotation Physical Therapy Plan Frequency and Duration Frequency of Treatment 2x/Week Plan of Care Start Date 05/26/20 Plan of Care End Date 08/24/20 Next Visit Focus/Plan Next Note Type Treatment Note Next Visit Plan Continue ultrasound to L posterior medial knee. Continue piriformis stretch and DTM to TFL & ITB for R hip
--- NOTE | 2020-06-22 10:33 | PT.OTN ---
Current Diagnoses Pain in right hip (06/22/20) Pain in left knee (06/22/20) Physical Therapy Treatment Note PT-OP-A Visit Information Start: 05/23/20 19:58 Freq: Status: Active Protocol: Document 06/22/20 09:51 SP (Rec: 06/22/20 11:34 SP [id number]) Out-Patient Physical Therapy Visit Information Visit Information Visit Type Treatment Note Visit Start Time 09:51 Visit Stop Time 10:33 Total Visit Minutes 42 Visit Number 9 Number of MENS LOCKER ROOM ATTENDANT Visits 2 PT-OP-B Current Condition Start: 05/23/20 19:58 Freq: Status: Active Protocol: Document 05/26/20 13:35 LRN (Rec: 05/26/20 14:27 LRN [id number]) Current Condition History of Current Condition Onset Date 2.5 months ago. 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 States it is greatly affecting her activity level. States Dr. Osborn is concerned about her kidneys and doesn't want her taking anti-inflammatory medications. States she initially took IBP for only 2 days and found it very helpful in reducing L knee pain. Activity helps decreased the knee pain but not the hip. Prior Treatments and Tests None. Developmental History Developmental History Was having weekly lead trainer sessions prior to COVID. Pre TASHI was a walker , walking 8 miles with a walking group that stopped due to COVID outbreak. Her activity level drastically reduced. 2 months ago at [employer] was stepping up with L leg and heard a pop in the back of the L knee. Had nauseating pain for 10 minutes , then it dissipated quite a bit. Then started compensating with gait by limping and 2-3 wks ago the R hip started to hurt. PT was decided needed. Had a massage this morning with a message from massage therapist saying she had an inflamed TFL, HT of Glut min & med., up IT Band. Treatment Goals Patient/Caregiver Goals Pt goals with therapy is to get back to moving comfortably (hike with back pain 2-3/10), able to sit with legs folded > 30 minutes, roll in bed without hip pain, and be told which ex equipment of her neighbors she can safely exercise with. 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 Baseline Function- Recreation/Hobbies Hiked routinely 4-5 miles with 600-800 elevation gain. Walked easily around [facility]. Baseline Function- Other Able to sit with legs folded for 1-2 hours. Current Functional Impairments (Reported) Functional Limitations- ADL's Rolling around in bed is sometimes painful. Able to sit with legs folded no more than 20 minutes. Functional Limitations- Mobility/Gait Walking in the house and mailbox (100 yards). Ambulates with an antalgic gait Functional Limitations- Work/School No change with work duties. Personal Factors Other Personal Factors That May Effect Arthritis causing back pain, Therapy/Recovery Breast cancer w/lumpectomy right May 2018. Cancer free thus far. Obesity (BMI 30-39.9) per record review. PT-OP-C Subjective Start: 05/23/20 19:58 Freq: Status: Active Protocol: Document 06/22/20 09:51 SP (Rec: 06/22/20 11:34 SP [id number]) OP-PT Subjective Patient Comments Patient Comments Pt considerably better, reported almost no pain in R hip today, able to do some gardening this am and walkign little better. L knee still hurting but tolerable. PT-OP-D Balance Start: 05/23/20 19:58 Freq: Status: Active Protocol: Document 05/26/20 13:35 LRN (Rec: 05/26/20 14:49 LRN [id number]) Balance Tests Single Limb Standing Single Limb- Right 60+. hands crossing chest Single Limb- Left 30. hands crossing chest Tandem Tandem Standing 60+ either foot behind, Hands on hips PT-OP-G Mobility & Gait Start: 05/23/20 19:58 Freq: Status: Active Protocol: Document 05/26/20 13:35 LRN (Rec: 05/26/20 14:27 LRN [id number]) OP Gait Assessment Gait Gait Assistance Required: Independent Assistive Devices Assistive Device None Gait Deviations General Gait Pattern Antalgic Factors Limiting Gait Function Factors Limiting Gait Function Decreased Activity Tolerance, Decreased Strength,Pain Comments Gait Comments Leans to R with gait. PT-OP-J Posture/Palpation/Skin Start: 05/23/20 19:58 Freq: Status: Active Protocol: Document 05/26/20 13:35 LRN (Rec: 05/26/20 14:49 LRN [id number]) Posture Evaluation Position Standing Head/C-Spine Posture Forward Head T-Spine Posture Flattened L-Spine Posture Increased Lordosis Pelvis Posture Anteriorly Tilted Weight Distribution Weight Shifted Left Hip Posture (L) Flexed,(R) Flexed Knee Posture (L) Genu Valgus,(R) Genu Valgus Ankle/Foot Posture (L) Supinated,(R) Supinated Foot Arch (L) High Arch,(R) High Arch Palpation Assessment Location L knee Palpation Location Posterior aspect of the knee and above/below joint line Palpation Findings Tenderness R hip Palpation Location TFL, ITBand, Greater Trochanter, Gluteals Palpation Findings Tenderness Palpation Details Tightness R TFL and Gluteals compared to L. PT-OP-K Range of Motion Start: 05/23/20 19:58 Freq: Status: Active Protocol: Document 05/26/20 13:35 LRN (Rec: 05/26/20 14:27 LRN [id number]) Hip Goniometric Range of Motion Hip Right Passive Hip ROM WFL No Testing Position Supine Straight Leg Raise 100 Internal Rotation 15 External Rotation 70 Left Passive Hip ROM WFL Yes Testing Position Supine Straight Leg Raise 100 Internal Rotation 25 External Rotation 70 Hip ROM Limitations Hip ROM Limitations Pain Knee Goniometric Range of Motion Knee Right Knee ROM WFL Yes Patient Position Supine Flexion Active (degrees) 125 Extension Active (degrees) 0 Left Knee ROM WFL Yes Patient Position Supine Flexion Active (degrees) 125 Extension Active (degrees) 0 Knee ROM Limitations Knee ROM Limitations Swelling PT-OP-L Special Tests Start: 05/23/20 19:58 Freq: Status: Active Protocol: Document 06/02/20 09:51 LRN (Rec: 06/02/20 10:36 LRN [id number]) Special Tests Hip Special Tests Straight Leg Raise Test Results - Bilaterally Comments PSLR 100 deg's prior to hamstring tightness. Knee Special Tests Apley's Compression Comments No pain L knee. Varus- 25 Degrees Test Results Negative Comments No pain L knee. Patellar Grind Test Test Results Negative Comments No pain L knee. Valgus- 25 Degrees Test Results negative Comments No pain L knee. Valgus- 0 Degrees Test Results negative Comments No pain L knee. Posterior Draw Test Results negative Comments No pain L knee. Daya's Test Results Negative Comments No pain L knee. Bounce Home Test Results negative Comments No pain L knee. Anterior Draw Test Results negative Comments No pain L knee. PT-OP-M Strength Start: 05/23/20 19:58 Freq: Status: Active Protocol: Document 05/26/20 13:35 LRN (Rec: 05/26/20 14:27 LRN [id number]) Hip Strength Hip Manual Muscle Testing Right Extension (S1) 3+ Fair+ Abduction 2 Poor Comments Strength is 5/5 except as indicated above. Pain with strength testing. Left Comments Strength is generally 5/5. Knee Strength Knee Manual Muscle Testing Right Comments 5/5 generally Left Comments 5/5 generally PT-OP-Q Treatments Start: 05/23/20 19:58 Freq: Status: Active Protocol: Document 06/22/20 09:51 SP (Rec: 06/22/20 11:34 SP [id number]) Cardio Equipment Recumbent Stepper (Sci-Fit) Duration (Minutes) 6 Resistance 3.0-3.5 Seat Position 6 Other cued press through mid foot, control no end range jarring, L knee 4/10 ok Therapeutic Exercises Supine Exercises core march Supine Exercise Name alternate BLE Reps/Minutes x10 Comments cued PPT and core facilitation still pelvis core heel slide Supine Exercise Name alternate good Side bilateral Reps/Minutes x10 Comments cued PPT and core facilitation still pelvis Hip ER stretch Supine Exercise Name Fig 4 stretch f/b 10 active stretch Reps/Minutes 3' Standing Exercises hip abd/ ext anchored door Resistance TB #1 Reps/Minutes x10 Comments cued cued PPT, glut facilitation TKE Resistance Tb #1 loop Reps/Minutes x10 Comments cued cued PPT, glut facilitation PT-OP-R Modalities Start: 05/23/20 19:58 Freq: Status: Active Protocol: Document 06/19/20 18:37 MA (Rec: 06/19/20 18:37 MA [id number]) Ultrasound Therapy Treatment L knee Treatment Duration (minutes) 8 Patient Position Prone Coupling Medium Ultrasound Gel Applicator Size (cm2) 5 Duty Cycle 50% Intensity Setting (w/cm2) 1.0 PT-OP-T Assessment and Plan Start: 05/23/20 19:58 Freq: Status: Active Protocol: Document 06/22/20 09:51 SP (Rec: 06/22/20 11:34 SP [id number]) Physical Therapy Assessment Goals Four Impairment Swelling in L knee limiting knee flexion tolerance. Short Term Goal (STG) Decrease swelling in the L knee with reduction in posterior knee pain to 0-1/10. (06/13/20: L knee full flexion without pain after ultrasound ) STG Duration 06/30/20 (06/13/20: Improving , pain 1/10 prior to US, afterward 0/10). Alf Goal (LTG) Pt will be able to sit by pulling legs under her for greater than 20 minutes. LTG Duration 08/24/20 (06/13/20: Progressing) Three Impairment Decreased R hip strength (AB 3 /5, ext 35) preventing ex walking/hiking. Short Term Goal (STG) Increase R hip strength to no less than 4/5 with pt able to roll around in bed without R hip pain. STG Duration 06/30/20 (06/01/20: Progressing with exercise) Handbag Frames Inspector Goal (LTG) Pt will be able to get back to walking/hiking comfortably 1- 2 miles and confident to progress independently ( acceptable back pain of 2-3/ 10). LTG Duration 08/24/20 Two Impairment R hip pain (rated 4/10) limiting gait mechanics ( antalgic gait). Short Term Goal (STG) Decrease R hip pain to 0/10. STG Duration 06/30/20 Alf Goal (LTG) Pt will be able to demonstrate normal gait mechanics. LTG Duration 08/24/20 One Impairment Pt lacks an appropriate self care HEP. Short Term Goal (STG) Pt will be independent in a R hip AB/ext strengthening and hip ER/IR ROM ex's. STG Duration 06/09/20 (06/06/20: Progressing ) Alf Goal (LTG) Pt will be independent in a self care HEP to include strengthening ex equipment that would be appropriate for the pt to continue independently. LTG Duration 08/24/20 (06/09/20: Progressing). Assessment Summary Assessment Pt responded well to scifit and added hip/ knee ( TKE, hip abd/ ext) strengthening TB with cuing for PPT awareness decrease LB recruitment. Pt reported little soreness end of tx as with sci fit medial L HS and calf but tolerable, will put CP and stretch more when gets home. Physical Therapy Plan Frequency and Duration Frequency of Treatment 2x/Week Plan of Care Start Date 05/26/20 Plan of Care End Date 08/24/20 Therapeutic Interventions Therapeutic Interventions Home Exercise Program,Patient/ Caregiver Education,Self-Care/ Home Management Next Visit Focus/Plan Next Note Type Treatment Note Next Visit Plan Assess strengthening response last tx, adjust HEP next tx. Continue ultrasound of needed to L posterior medial knee. Continue piriformis stretch and DTM to TFL & ITB for R hip
--- NOTE | 2020-06-26 09:56 | PT.OTN ---
Current Diagnoses Pain in right hip (06/26/20) Pain in left knee (06/26/20) Physical Therapy Treatment Note PT-OP-A Visit Information Start: 05/23/20 19:58 Freq: Status: Active Protocol: Document 06/26/20 09:03 SP (Rec: 06/26/20 10:08 SP [id number]) Out-Patient Physical Therapy Visit Information Visit Information Visit Type Treatment Note Visit Start Time 09:03 Visit Stop Time 09:56 Total Visit Minutes 53 Visit Number 10 Number of WATER TAXI FERRY OPERATOR Visits 3 PT-OP-B Current Condition Start: 05/23/20 19:58 Freq: Status: Active Protocol: Document 05/26/20 13:35 LRN (Rec: 05/26/20 14:27 LRN [id number]) Current Condition History of Current Condition Onset Date 2.5 months ago. 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 States it is greatly affecting her activity level. States Dr. Osborn is concerned about her kidneys and doesn't want her taking anti-inflammatory medications. States she initially took IBP for only 2 days and found it very helpful in reducing L knee pain. Activity helps decreased the knee pain but not the hip. Prior Treatments and Tests None. 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 Pre TASHI was a walker , walking 8 miles with a walking group that stopped due to COVID outbreak. Her activity level drastically reduced. 2 months ago at [employer] was stepping up with L leg and heard a pop in the back of the L knee. Had nauseating pain for 10 minutes , then it dissipated quite a bit. Then started compensating with gait by limping and 2-3 wks ago the R hip started to hurt. PT was decided needed. Had a massage this morning with a message from massage therapist saying she had an inflamed TFL, HT of Glut min & med., up IT Band. Treatment Goals Patient/Caregiver Goals Pt goals with therapy is to get back to moving comfortably (hike with back pain 2-3/10), able to sit with legs folded > 30 minutes, roll in bed without hip pain, and be told which ex equipment of her neighbors she can safely exercise with. 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 Baseline Function- Recreation/Hobbies Hiked routinely 4-5 miles with 600-800 elevation gain. Walked easily around [facility]. Baseline Function- Other Able to sit with legs folded for 1-2 hours. Current Functional Impairments (Reported) Functional Limitations- ADL's Rolling around in bed is sometimes painful. Able to sit with legs folded no more than 20 minutes. Functional Limitations- Mobility/Gait Walking in the house and mailbox (100 yards). Ambulates with an antalgic gait Functional Limitations- Work/School No change with work duties. Personal Factors Other Personal Factors That May Effect Arthritis causing back pain, Therapy/Recovery Breast cancer w/lumpectomy right May 2018. Cancer free thus far. Obesity (BMI 30-39.9) per record review. PT-OP-C Subjective Start: 05/23/20 19:58 Freq: Status: Active Protocol: Document 06/26/20 09:03 SP (Rec: 06/26/20 10:08 SP [id number]) OP-PT Subjective Patient Comments Patient Comments Pt reports doing pretty well, L knee pain still mostly there 2/10 and stiffness but tolerable to do activity want, R hip starts to feel it when over does it alot better, pleased. Pt reported was ableto use cable system at [facility] as wanted: TKE and hip abd/ ext and used elevated squat bench for support with balance with no increased pain and getting benefits of strengthening. Pt wants to do some cardio but no equipment, can we try side step assimulate jumping jacks without impact today? She is adding core and UE strengthenign at gym ( [facility] [employer] [facility]). PT-OP-D Balance Start: 05/23/20 19:58 Freq: Status: Active Protocol: Document 05/26/20 13:35 LRN (Rec: 05/26/20 14:49 LRN [id number]) Balance Tests Single Limb Standing Single Limb- Right 60+. hands crossing chest Single Limb- Left 30. hands crossing chest Tandem Tandem Standing 60+ either foot behind, Hands on hips PT-OP-G Mobility & Gait Start: 05/23/20 19:58 Freq: Status: Active Protocol: Document 05/26/20 13:35 LRN (Rec: 05/26/20 14:27 LRN [id number]) OP Gait Assessment Gait Gait Assistance Required: Independent Assistive Devices Assistive Device None Gait Deviations General Gait Pattern Antalgic Factors Limiting Gait Function Factors Limiting Gait Function Decreased Activity Tolerance, Decreased Strength,Pain Comments Gait Comments Leans to R with gait. PT-OP-J Posture/Palpation/Skin Start: 05/23/20 19:58 Freq: Status: Active Protocol: Document 05/26/20 13:35 LRN (Rec: 05/26/20 14:49 LRN [id number]) Posture Evaluation Position Standing Head/C-Spine Posture Forward Head T-Spine Posture Flattened L-Spine Posture Increased Lordosis Pelvis Posture Anteriorly Tilted Weight Distribution Weight Shifted Left Hip Posture (L) Flexed,(R) Flexed Knee Posture (L) Genu Valgus,(R) Genu Valgus Ankle/Foot Posture (L) Supinated,(R) Supinated Foot Arch (L) High Arch,(R) High Arch Palpation Assessment Location L knee Palpation Location Posterior aspect of the knee and above/below joint line Palpation Findings Tenderness R hip Palpation Location TFL, ITBand, Greater Trochanter, Gluteals Palpation Findings Tenderness Palpation Details Tightness R TFL and Gluteals compared to L. PT-OP-K Range of Motion Start: 05/23/20 19:58 Freq: Status: Active Protocol: Document 05/26/20 13:35 LRN (Rec: 05/26/20 14:27 LRN [id number]) Hip Goniometric Range of Motion Hip Right Passive Hip ROM WFL No Testing Position Supine Straight Leg Raise 100 Internal Rotation 15 External Rotation 70 Left Passive Hip ROM WFL Yes Testing Position Supine Straight Leg Raise 100 Internal Rotation 25 External Rotation 70 Hip ROM Limitations Hip ROM Limitations Pain Knee Goniometric Range of Motion Knee Right Knee ROM WFL Yes Patient Position Supine Flexion Active (degrees) 125 Extension Active (degrees) 0 Left Knee ROM WFL Yes Patient Position Supine Flexion Active (degrees) 125 Extension Active (degrees) 0 Knee ROM Limitations Knee ROM Limitations Swelling PT-OP-L Special Tests Start: 05/23/20 19:58 Freq: Status: Active Protocol: Document 06/02/20 09:51 LRN (Rec: 06/02/20 10:36 LRN [id number]) Special Tests Hip Special Tests Straight Leg Raise Test Results - Bilaterally Comments PSLR 100 deg's prior to hamstring tightness. Knee Special Tests Apley's Compression Comments No pain L knee. Varus- 25 Degrees Test Results Negative Comments No pain L knee. Patellar Grind Test Test Results Negative Comments No pain L knee. Valgus- 25 Degrees Test Results negative Comments No pain L knee. Valgus- 0 Degrees Test Results negative Comments No pain L knee. Posterior Draw Test Results negative Comments No pain L knee. Daya's Test Results Negative Comments No pain L knee. Bounce Home Test Results negative Comments No pain L knee. Anterior Draw Test Results negative Comments No pain L knee. PT-OP-M Strength Start: 05/23/20 19:58 Freq: Status: Active Protocol: Document 05/26/20 13:35 LRN (Rec: 05/26/20 14:27 LRN [id number]) Hip Strength Hip Manual Muscle Testing Right Extension (S1) 3+ Fair+ Abduction 2 Poor Comments Strength is 5/5 except as indicated above. Pain with strength testing. Left Comments Strength is generally 5/5. Knee Strength Knee Manual Muscle Testing Right Comments 5/5 generally Left Comments 5/5 generally PT-OP-Q Treatments Start: 05/23/20 19:58 Freq: Status: Active Protocol: Document 06/26/20 09:03 SP (Rec: 06/26/20 10:08 SP [id number]) Cardio Equipment Recumbent Bicycle Duration (Minutes) 8 Resistance 8 Seat Position 2 Gym Equipment Cable Column (Body Solid) hip abd, ext Details B (occasional cue core fac and chair front for up posture) Resistance #0 Reps/Time x10 each Therapeutic Exercises Supine Exercises core november Supine Exercise Name alternate BLE (modified bicycle- touch down) Reps/Minutes 2 x15 Comments good core stab!! Hip ER stretch Supine Exercise Name Fig 4 stretch f/b 10 active stretch Reps/Minutes 1' Bridging Supine Exercise Name hip abd clam Reps/Minutes x15 Comments cued PPT and slow pacing control Piriformis stretch Reps/Minutes 2x30 sec Prone Exercises elbow plank off toes Reps/Minutes 5 sec (own HEP 1x day) Comments occasional cue PPT and glut fac. modified super man Prone Exercise Name arms side Reps/Minutes 25 sec (1xday) own HEP Comments good core- instructed no ams [place] due to core stress, atside better. Sitting Exercises glut/ pirf stretch Side right Reps/Minutes 30 x3 Standing Exercises band side step cardio Side bilateral Resistance Tb #1 Equipment Used mirror for self posture, chair initially balance Reps/Minutes 2 min Comments cued core stabiliz, soft step impact, arms OH bent hip abd/ ext anchored door Standing Exercise Name today body column at home. Reps/Minutes no plate Comments see gym equip. Gastrocnemius stretch Standing Exercise Name Runners stretch Side left Reps/Minutes 2' PT-OP-R Modalities Start: 05/23/20 19:58 Freq: Status: Active Protocol: Document 06/19/20 18:37 MA (Rec: 06/19/20 18:37 MA [id number]) Ultrasound Therapy Treatment L knee Treatment Duration (minutes) 8 Patient Position Prone Coupling Medium Ultrasound Gel Applicator Size (cm2) 5 Duty Cycle 50% Intensity Setting (w/cm2) 1.0 PT-OP-T Assessment and Plan Start: 05/23/20 19:58 Freq: Status: Active Protocol: Document 06/26/20 09:03 SP (Rec: 06/26/20 10:08 SP [id number]) Physical Therapy Assessment Goals Four Impairment Swelling in L knee limiting knee flexion tolerance. Short Term Goal (STG) Decrease swelling in the L knee with reduction in posterior knee pain to 0-1/10. (06/13/20: L knee full flexion without pain after ultrasound ) STG Duration 06/30/20 (06/13/20: Improving , pain 1/10 prior to US, afterward 0/10). Nursing Home Goal (LTG) Pt will be able to sit by pulling legs under her for greater than 20 minutes. LTG Duration 08/24/20 (06/13/20: Progressing) Three Impairment Decreased R hip strength (AB 3 /5, ext 35) preventing ex walking/hiking. Short Term Goal (STG) Increase R hip strength to no less than 4/5 with pt able to roll around in bed without R hip pain. 06/26/20: L knee always there 2/10 most of the time and R hip on L side abd occasionally hurt 3/10. STG Duration 06/30/20 (06/01/20: Progressing with exercise) Offset Printing Pressmen Goal (LTG) Pt will be able to get back to walking/hiking comfortably 1- 2 miles and confident to progress independently ( acceptable back pain of 2-3/ 10). 06/26/20: progressing 2/10 L knee pain during walks not worse and R hip occasional but improving approx block. LTG Duration 08/24/20 Two Impairment R hip pain (rated 4/10) limiting gait mechanics ( antalgic gait). Short Term Goal (STG) Decrease R hip pain to 0/10. STG Duration 06/30/20 Offset Printing Pressmen Goal (LTG) Pt will be able to demonstrate normal gait mechanics. LTG Duration 08/24/20 One Impairment Pt lacks an appropriate self care HEP. Short Term Goal (STG) Pt will be independent in a R hip AB/ext strengthening and hip ER/IR ROM ex's. STG Duration 06/09/20 (06/06/20: Progressing ) Offset Printing Pressmen Goal (LTG) Pt will be independent in a self care HEP to include strengthening ex equipment that would be appropriate for the pt to continue independently. LTG Duration 08/24/20 (06/09/20: Progressing). Assessment Summary Assessment Pt stated is making gains in strength, compliant with HEp and adding home gym equipment column, reviewed today for proper alignment occasional cuing PPT. Improving in R hip pain occasional now during walk and L knee low level pain still constant but does't restrict activity level, approx a block distance. Recommended level surfaces right now. Improved core stabilization and reviewed self plank and modified her superman to arms at sides for improved core stabilization. Pt not wanting US during past 2 tx's mostly active ex and stretching. Physical Therapy Plan Frequency and Duration Frequency of Treatment 2x/Week Plan of Care Start Date 05/26/20 Plan of Care End Date 08/24/20 Therapeutic Interventions Therapeutic Interventions Home Exercise Program,Patient/ Caregiver Education,Self-Care/ Home Management Next Visit Focus/Plan Next Note Type Treatment Note Next Visit Plan Assess strengthening response last tx, added resisted bridge clamshell and modified bicycle from core november due to gains want more challenge. Next tx add eccentric stair retro/lat, HS curl seated cable/TB, wt calf raises for gym progresses and continue stretching. STM Psoas, quad, TFL. Continue per PT POC: piriformis stretch and DTM to TFL & ITB for R hip
--- NOTE | 2020-06-29 12:01 | PT.OTN ---
Current Diagnoses Pain in right hip (06/29/20) Pain in left knee (06/29/20) Physical Therapy Treatment Note PT-OP-A Visit Information Start: 05/23/20 19:58 Freq: Status: Active Protocol: Document 06/29/20 08:59 LRN (Rec: 06/29/20 09:52 LRN [id number]) Out-Patient Physical Therapy Visit Information Visit Information Visit Type Progress Note Visit Start Time 08:59 Visit Stop Time 09:48 Total Visit Minutes 49 Visit Number 11 Evaluation Information Evaluation Date 05/26/20 Precautions Precautions CA history: Breast cancer w/R lumpectomy - 05/2018. Back pain due to arthritis. Osteopenia L femoral neck. HTN, Hypothyroid, Amaury's thyroiditis PT-OP-B Current Condition Start: 05/23/20 19:58 Freq: Status: Active Protocol: Document 05/26/20 13:35 LRN (Rec: 05/26/20 14:27 LRN [id number]) Current Condition History of Current Condition Onset Date 2.5 months ago. 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 States it is greatly affecting her activity level. States Dr. Osborn is concerned about her kidneys and doesn't want her taking anti-inflammatory medications. States she initially took IBP for only 2 days and found it very helpful in reducing L knee pain. Activity helps decreased the knee pain but not the hip. Prior Treatments and Tests None. 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 Pre TASHI was a walker , walking 8 miles with a walking group that stopped due to COVID outbreak. Her activity level drastically reduced. 2 months ago at [employer] was stepping up with L leg and heard a pop in the back of the L knee. Had nauseating pain for 10 minutes , then it dissipated quite a bit. Then started compensating with gait by limping and 2-3 wks ago the R hip started to hurt. PT was decided needed. Had a massage this morning with a message from massage therapist saying she had an inflamed TFL, HT of Glut min & med., up IT Band. Treatment Goals Patient/Caregiver Goals Pt goals with therapy is to get back to moving comfortably (hike with back pain 2-3/10), able to sit with legs folded > 30 minutes, roll in bed without hip pain, and be told which ex equipment of her neighbors she can safely exercise with. 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 Baseline Function- Recreation/Hobbies Hiked routinely 4-5 miles with 600-800 elevation gain. Walked easily around [place] [employer]. Baseline Function- Other Able to sit with legs folded for 1-2 hours. Current Functional Impairments (Reported) Functional Limitations- ADL's Rolling around in bed is sometimes painful. Able to sit with legs folded no more than 20 minutes. Functional Limitations- Mobility/Gait Walking in the house and mailbox (100 yards). Ambulates with an antalgic gait Functional Limitations- Work/School No change with work duties. Personal Factors Other Personal Factors That May Effect Arthritis causing back pain, Therapy/Recovery Breast cancer w/lumpectomy right May 2018. Cancer free thus far. Obesity (BMI 30-39.9) per record review. PT-OP-C Subjective Start: 05/23/20 19:58 Freq: Status: Active Protocol: Document 06/29/20 08:59 LRN (Rec: 06/29/20 09:52 LRN [id number]) OP-PT Subjective Patient Comments Patient Comments States L knee and R hip pain is 0-2/10. States there are a few ways she moves in bed that produces R hip pain, but she has returned to walking mostly every day and was able to walk the [facility] [address] (2.2 miles) and a tiny bit of back/ R hip pain at worst was 2/10, no L knee pain. States she has started strengthening in her neighbor's work out equipment equipment. PT-OP-D Balance Start: 05/23/20 19:58 Freq: Status: Active Protocol: Document 05/26/20 13:35 LRN (Rec: 05/26/20 14:49 LRN [id number]) Balance Tests Single Limb Standing Single Limb- Right 60+. hands crossing chest Single Limb- Left 30. hands crossing chest Tandem Tandem Standing 60+ either foot behind, Hands on hips PT-OP-G Mobility & Gait Start: 05/23/20 19:58 Freq: Status: Active Protocol: Document 05/26/20 13:35 LRN (Rec: 05/26/20 14:27 LRN [id number]) OP Gait Assessment Gait Gait Assistance Required: Independent Assistive Devices Assistive Device None Gait Deviations General Gait Pattern Antalgic Factors Limiting Gait Function Factors Limiting Gait Function Decreased Activity Tolerance, Decreased Strength,Pain Comments Gait Comments Leans to R with gait. PT-OP-J Posture/Palpation/Skin Start: 05/23/20 19:58 Freq: Status: Active Protocol: Document 05/26/20 13:35 LRN (Rec: 05/26/20 14:49 LRN [id number]) Posture Evaluation Position Standing Head/C-Spine Posture Forward Head T-Spine Posture Flattened L-Spine Posture Increased Lordosis Pelvis Posture Anteriorly Tilted Weight Distribution Weight Shifted Left Hip Posture (L) Flexed,(R) Flexed Knee Posture (L) Genu Valgus,(R) Genu Valgus Ankle/Foot Posture (L) Supinated,(R) Supinated Foot Arch (L) High Arch,(R) High Arch Palpation Assessment Location L knee Palpation Location Posterior aspect of the knee and above/below joint line Palpation Findings Tenderness R hip Palpation Location TFL, ITBand, Greater Trochanter, Gluteals Palpation Findings Tenderness Palpation Details Tightness R TFL and Gluteals compared to L. PT-OP-K Range of Motion Start: 05/23/20 19:58 Freq: Status: Active Protocol: Document 06/29/20 09:03 LRN (Rec: 06/29/20 10:07 LRN [id number]) Knee Goniometric Range of Motion Knee Left Knee ROM WFL Yes Patient Position Supine Comments Normal AROM. Max PROM is without pain. PT-OP-L Special Tests Start: 05/23/20 19:58 Freq: Status: Active Protocol: Document 06/02/20 09:51 LRN (Rec: 06/02/20 10:36 LRN [id number]) Special Tests Hip Special Tests Straight Leg Raise Test Results - Bilaterally Comments PSLR 100 deg's prior to hamstring tightness. Knee Special Tests Apley's Compression Comments No pain L knee. Varus- 25 Degrees Test Results Negative Comments No pain L knee. Patellar Grind Test Test Results Negative Comments No pain L knee. Valgus- 25 Degrees Test Results negative Comments No pain L knee. Valgus- 0 Degrees Test Results negative Comments No pain L knee. Posterior Draw Test Results negative Comments No pain L knee. Daya's Test Results Negative Comments No pain L knee. Bounce Home Test Results negative Comments No pain L knee. Anterior Draw Test Results negative Comments No pain L knee. PT-OP-M Strength Start: 05/23/20 19:58 Freq: Status: Active Protocol: Document 06/29/20 08:59 LRN (Rec: 06/29/20 09:52 LRN [id number]) Hip Strength Hip Manual Muscle Testing Right Flexion (L2) 5 Normal Extension (S1) 4+ Good+ Abduction 5 Normal Adduction 5 Normal Left Flexion (L2) 5 Normal Extension (S1) 5 Normal Abduction 5 Normal Adduction 5 Normal PT-OP-Q Treatments Start: 05/23/20 19:58 Freq: Status: Active Protocol: Document 06/29/20 08:59 LRN (Rec: 06/29/20 09:52 LRN [id number]) Therapeutic Exercises Supine Exercises Hip Flexor stretch Supine Exercise Name Mannie Test position at edge of plinth Side right Reps/Minutes 30 x 2 Comments Extra time for positioning correctly core march Supine Exercise Name alternate BLE (modified bicycle- touch down) Reps/Minutes 2 x15 Comments good core stab DKTC Supine Exercise Name DKTC Side bilateral Reps/Minutes 10 hold Hip ER stretch Supine Exercise Name Fig 4 stretch f/b 10 active stretch Reps/Minutes 1' Bridging Supine Exercise Name Bridge with and without TBand Equipment Used Lev 2 TB Reps/Minutes 15x each Hip AD stretch Supine Exercise Name V-Sit Side bilateral Reps/Minutes 3' Comments Extra time for teaching max positioning Piriformis stretch Reps/Minutes 2x30 sec Lateral Hip stretch Supine Exercise Name Lateral Hip stretch Side bilateral Sitting Exercises Stretch to hip AD's Sitting Exercise Name Hip AD's stretch Sitting legs out to sides. Side bilateral Standing Exercises Stretch to hip AD's Standing Exercise Name Hip AD's stretch Side bilateral Comments Deferred after several attempts of positioining due to L knee pain. Gastrocnemius stretch Standing Exercise Name Runners stretch Side left Reps/Minutes 2' Self-Care/Home Management Treatment Education Patient Education Home Exercise Program Activities Self-Care/Home Management Activities Issued & reviewed HEP: Hip AD stretch and Hip flexor stretch. Extra time taken due to printing of ex delay and difficulties. PT-OP-R Modalities Start: 05/23/20 19:58 Freq: Status: Active Protocol: Document 06/19/20 18:37 MA (Rec: 06/19/20 18:37 MA [id number]) Ultrasound Therapy Treatment L knee Treatment Duration (minutes) 8 Patient Position Prone Coupling Medium Ultrasound Gel Applicator Size (cm2) 5 Duty Cycle 50% Intensity Setting (w/cm2) 1.0 PT-OP-T Assessment and Plan Start: 05/23/20 19:58 Freq: Status: Active Protocol: Document 06/29/20 08:59 LRN (Rec: 06/29/20 09:52 LRN [id number]) Physical Therapy Assessment Goals Four Impairment Swelling in L knee limiting knee flexion tolerance. Short Term Goal (STG) Decrease swelling in the L knee with reduction in posterior knee pain to 0-1/10. (06/29/20: L knee full flexion without pain after ultrasound) STG Duration 06/30/20 (06/29/20: Improving, pain 0-2/10). Chcf Goal (LTG) Pt will be able to sit by pulling legs under her for greater than 20 minutes. LTG Duration 08/24/20 (06/29/20: NOT MET, not attempted) Three Impairment Decreased R hip strength (AB 3 /5, ext 3/5) preventing ex walking/hiking. Short Term Goal (STG) Increase R hip strength to no less than 4/5 with pt able to roll around in bed without R hip pain. 06/29/20: L knee pain 0-2/10. R hip is tight when on L side sidelie. STG Duration 06/30/20 (06/29/20: MET GOAL ) Rn Licensed Practical Goal (LTG) Pt will be able to get back to walking/hiking comfortably 1- 2 miles and confident to progress independently ( acceptable back pain of 2-3/ 10) LTG Duration 08/24/20 (06/29/20: MET GOAL ) Two Impairment R hip pain (rated 4/10) limiting gait mechanics ( antalgic gait). Short Term Goal (STG) Decrease R hip pain to 0/10. STG Duration 06/30/20 (06/29/20: Improving; sometimes 0/10) Rn Licensed Practical Goal (LTG) Pt will be able to demonstrate normal gait mechanics. LTG Duration 08/24/20 One Impairment Pt lacks an appropriate self care HEP. Short Term Goal (STG) Pt will be independent in a R hip AB/ext strengthening and hip ER/IR ROM ex's. STG Duration 06/09/20 (06/29/20: MET GOAL ) Chcf Goal (LTG) Pt will be independent in a self care HEP to include strengthening ex equipment that would be appropriate for the pt to continue independently. LTG Duration 08/24/20 (06/29/20: MET GOAL to this date). Progress Towards Goals Progress Comments Goal 1: STG: MET LTG: Met for current condition. Progression of a HEP will continue until DC. Goal 3: LTG & STG: MET. Much improved hip strength and return to active activities. Goal 4: STG: Improving. L knee pain is sometimes 0/10, and ranges 0-2/10. Assessment Summary Assessment Pt has made good progress with therapy. She shows good understanding her her last issued exercises. Her L knee appears to have slight swelling and very mild increased temp in the lateral infrapatellar fat pad. The pt 's R hip strength has improved greatly and she no longer complains of back pain. The pt would benefit from continues skilled physical therapy to progress her onto her walking program and improve her gait mechanics. Physical Therapy Plan Frequency and Duration Frequency of Treatment 2x/Week Plan of Care Start Date 05/26/20 Plan of Care End Date 08/24/20 Therapeutic Interventions Therapeutic Interventions Gait Training,Home Exercise Program,Joint Mobilizations, Manual Therapy,Neuromuscular Re-education,Patient/Caregiver Education,Self-Care/Home Management,Therapeutic Exercises Modalities Cold Pack/Ice Massage,Electric Stimulation,Hot Packs, Ultrasound Next Visit Focus/Plan Next Note Type Treatment Note Next Visit Plan Progress core strengthening. Start gait training and balance activities to help her transition to hiking on trails, and assess her ability to sit by pulling her legs under her she is appropriate to try it. Next tx add eccentric stair retro/lat, HS curl seated cable/TB, wt calf raises for gym progresses and continue stretching. STM Psoas , quad, TFL. Continue per PT POC: piriformis stretch and DTM to TFL & ITB for R hip as needed to decrease pain and improve flexibility.
--- NOTE | 2020-06-29 12:02 | PT.OPPOC ---
Physical, Occupational & Speech Therapy At [facility] Current Diagnoses Pain in right hip (06/29/20) Pain in left knee (06/29/20) Visit Care Team Role Provider Type Yaritza Osborn DO Attending Provider Physician Primary Care Provider Referring Provider Specialty: [facility] Practice Address: [address] [place] [address], [address], [facility] Email: [email or web address] Plan Of Care PT-OP-T Assessment and Plan Start: 05/23/20 19:58 Freq: Status: Active Protocol: Document 06/29/20 08:59 LRN (Rec: 06/29/20 09:52 LRN [id number]) Physical Therapy Assessment Goals Four Impairment Swelling in L knee limiting knee flexion tolerance. Short Term Goal (STG) Decrease swelling in the L knee with reduction in posterior knee pain to 0-1/10. (06/29/20: L knee full flexion without pain after ultrasound) STG Duration 06/30/20 (06/29/20: Improving, pain 0-2/10). Retirement Goal (LTG) Pt will be able to sit by pulling legs under her for greater than 20 minutes. LTG Duration 08/24/20 (06/29/20: NOT MET, not attempted) Three Impairment Decreased R hip strength (AB 3 /5, ext 3/5) preventing ex walking/hiking. Short Term Goal (STG) Increase R hip strength to no less than 4/5 with pt able to roll around in bed without R hip pain. 06/29/20: L knee pain 0-2/10. R hip is tight when on L side sidelie. STG Duration 06/30/20 (06/29/20: MET GOAL ) P D Driver Goal (LTG) Pt will be able to get back to walking/hiking comfortably 1- 2 miles and confident to progress independently ( acceptable back pain of 2-3/ 10) LTG Duration 08/24/20 (06/29/20: MET GOAL ) Two Impairment R hip pain (rated 4/10) limiting gait mechanics ( antalgic gait). Short Term Goal (STG) Decrease R hip pain to 0/10. STG Duration 06/30/20 (06/29/20: Improving; sometimes 0/10) Retirement Goal (LTG) Pt will be able to demonstrate normal gait mechanics. LTG Duration 08/24/20 One Impairment Pt lacks an appropriate self care HEP. Short Term Goal (STG) Pt will be independent in a R hip AB/ext strengthening and hip ER/IR ROM ex's. STG Duration 06/09/20 (06/29/20: MET GOAL ) P D Driver Goal (LTG) Pt will be independent in a self care HEP to include strengthening ex equipment that would be appropriate for the pt to continue independently. LTG Duration 08/24/20 (06/29/20: MET GOAL to this date). Progress Towards Goals Progress Comments Goal 1: STG: MET LTG: Met for current condition. Progression of a HEP will continue until DC. Goal 3: LTG & STG: MET. Much improved hip strength and return to active activities. Goal 4: STG: Improving. L knee pain is sometimes 0/10, and ranges 0-2/10. Assessment Summary Assessment Pt has made good progress with therapy. She shows good understanding her her last issued exercises. Her L knee appears to have slight swelling and very mild increased temp in the lateral infrapatellar fat pad. The pt 's R hip strength has improved greatly and she no longer complains of back pain. The pt would benefit from continues skilled physical therapy to progress her onto her walking program and improve her gait mechanics. Physical Therapy Plan Frequency and Duration Frequency of Treatment 2x/Week Plan of Care Start Date 05/26/20 Plan of Care End Date 08/24/20 Therapeutic Interventions Therapeutic Interventions Gait Training,Home Exercise Program,Joint Mobilizations, Manual Therapy,Neuromuscular Re-education,Patient/Caregiver Education,Self-Care/Home Management,Therapeutic Exercises Modalities Cold Pack/Ice Massage,Electric Stimulation,Hot Packs, Ultrasound Next Visit Focus/Plan Next Note Type Treatment Note Next Visit Plan Progress core strengthening. Start gait training and balance activities to help her transition to hiking on trails, and assess her ability to sit by pulling her legs under her she is appropriate to try it. Next tx add eccentric stair retro/lat, HS curl seated cable/TB, wt calf raises for gym progresses and continue stretching. STM Psoas , quad, TFL. Continue per PT POC: piriformis stretch and DTM to TFL & ITB for R hip as needed to decrease pain and improve flexibility. Plan of Care Dates Plan of Care Start Date 05/26/20 Plan of Care End Date 08/24/20 Electronically Signed by: Erin Farias, PT 06/29/20 [id number] Please Sign and Return: I have reviewed this Plan of Care and certify that the skilled therapy services above are required to meet the patient?s needs. Physician Signature Date Printed Name and Credentials Clinical Instructor Signature Printed Name and Credentials
--- NOTE | 2020-07-03 10:34 | PT.OTN ---
Current Diagnoses Pain in right hip (07/03/20) Pain in left knee (07/03/20) Physical Therapy Treatment Note PT-OP-A Visit Information Start: 05/23/20 19:58 Freq: Status: Active Protocol: Document 07/03/20 09:48 SP (Rec: 07/03/20 15:56 SP [id number]) Out-Patient Physical Therapy Visit Information Visit Information Visit Type Treatment Note Visit Start Time 09:48 Visit Stop Time 10:34 Total Visit Minutes 46 Visit Number 12 Number of BENCH ASSEMBLER Visits 1 PT-OP-B Current Condition Start: 05/23/20 19:58 Freq: Status: Active Protocol: Document 05/26/20 13:35 LRN (Rec: 05/26/20 14:27 LRN [id number]) Current Condition History of Current Condition Onset Date 2.5 months ago. Current Complaints Occasional L gaggerman knee pn, R deep posterolateral hip pn History of Current Condition States the R hip pain is more of a problem than the L knee. States it is greatly affecting her activity level. States Dr. Osborn is concerned about her kidneys and doesn't want her taking anti-inflammatory medications. States she initially took IBP for only 2 days and found it very helpful in reducing L knee pain. Activity helps decreased the knee pain but not the hip. Prior Treatments and Tests None. 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 Pre TASHI was a walker , walking 8 miles with a walking group that stopped due to COVID outbreak. Her activity level drastically reduced. 2 months ago at [employer] was stepping up with L leg and heard a pop in the back of the L knee. Had nauseating pain for 10 minutes , then it dissipated quite a bit. Then started compensating with gait by limping and 2-3 wks ago the R hip started to hurt. PT was decided needed. Had a massage this morning with a message from massage therapist saying she had an inflamed TFL, HT of Glut min & med., up IT Band. Treatment Goals Patient/Caregiver Goals Pt goals with therapy is to get back to moving comfortably (hike with back pain 2-3/10), able to sit with legs folded > 30 minutes, roll in bed without hip pain, and be told which ex equipment of her neighbors she can safely exercise with. 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 Baseline Function- Recreation/Hobbies Hiked routinely 4-5 miles with 600-800 elevation gain. Walked easily around [facility]. Baseline Function- Other Able to sit with legs folded for 1-2 hours. Current Functional Impairments (Reported) Functional Limitations- ADL's Rolling around in bed is sometimes painful. Able to sit with legs folded no more than 20 minutes. Functional Limitations- Mobility/Gait Walking in the house and mailbox (100 yards). Ambulates with an antalgic gait Functional Limitations- Work/School No change with work duties. Personal Factors Other Personal Factors That May Effect Arthritis causing back pain, Therapy/Recovery Breast cancer w/lumpectomy right May 2018. Cancer free thus far. Obesity (BMI 30-39.9) per record review. PT-OP-C Subjective Start: 05/23/20 19:58 Freq: Status: Active Protocol: Document 07/03/20 09:48 SP (Rec: 07/03/20 15:56 SP [id number]) OP-PT Subjective Patient Comments Patient Comments Pt reported doing well, is compliant with HEP and wants to assess amount doing and some seem easy and redundent to new ones added and wonder if can stop doing some now. Over all improving. PT-OP-D Balance Start: 05/23/20 19:58 Freq: Status: Active Protocol: Document 05/26/20 13:35 LRN (Rec: 05/26/20 14:49 LRN [id number]) Balance Tests Single Limb Standing Single Limb- Right 60+. hands crossing chest Single Limb- Left 30. hands crossing chest Tandem Tandem Standing 60+ either foot behind, Hands on hips PT-OP-G Mobility & Gait Start: 05/23/20 19:58 Freq: Status: Active Protocol: Document 05/26/20 13:35 LRN (Rec: 05/26/20 14:27 LRN [id number]) OP Gait Assessment Gait Gait Assistance Required: Independent Assistive Devices Assistive Device None Gait Deviations General Gait Pattern Antalgic Factors Limiting Gait Function Factors Limiting Gait Function Decreased Activity Tolerance, Decreased Strength,Pain Comments Gait Comments Leans to R with gait. PT-OP-J Posture/Palpation/Skin Start: 05/23/20 19:58 Freq: Status: Active Protocol: Document 05/26/20 13:35 LRN (Rec: 05/26/20 14:49 LRN [id number]) Posture Evaluation Position Standing Head/C-Spine Posture Forward Head T-Spine Posture Flattened L-Spine Posture Increased Lordosis Pelvis Posture Anteriorly Tilted Weight Distribution Weight Shifted Left Hip Posture (L) Flexed,(R) Flexed Knee Posture (L) Genu Valgus,(R) Genu Valgus Ankle/Foot Posture (L) Supinated,(R) Supinated Foot Arch (L) High Arch,(R) High Arch Palpation Assessment Location L knee Palpation Location Posterior aspect of the knee and above/below joint line Palpation Findings Tenderness R hip Palpation Location TFL, ITBand, Greater Trochanter, Gluteals Palpation Findings Tenderness Palpation Details Tightness R TFL and Gluteals compared to L. PT-OP-K Range of Motion Start: 05/23/20 19:58 Freq: Status: Active Protocol: Document 06/29/20 09:03 LRN (Rec: 06/29/20 10:07 LRN [id number]) Knee Goniometric Range of Motion Knee Left Knee ROM WFL Yes Patient Position Supine Comments Normal AROM. Max PROM is without pain. PT-OP-L Special Tests Start: 05/23/20 19:58 Freq: Status: Active Protocol: Document 06/02/20 09:51 LRN (Rec: 06/02/20 10:36 LRN [id number]) Special Tests Hip Special Tests Straight Leg Raise Test Results - Bilaterally Comments PSLR 100 deg's prior to hamstring tightness. Knee Special Tests Apley's Compression Comments No pain L knee. Varus- 25 Degrees Test Results Negative Comments No pain L knee. Patellar Grind Test Test Results Negative Comments No pain L knee. Valgus- 25 Degrees Test Results negative Comments No pain L knee. Valgus- 0 Degrees Test Results negative Comments No pain L knee. Posterior Draw Test Results negative Comments No pain L knee. Daya's Test Results Negative Comments No pain L knee. Bounce Home Test Results negative Comments No pain L knee. Anterior Draw Test Results negative Comments No pain L knee. PT-OP-M Strength Start: 05/23/20 19:58 Freq: Status: Active Protocol: Document 06/29/20 08:59 LRN (Rec: 06/29/20 09:52 LRN [id number]) Hip Strength Hip Manual Muscle Testing Right Flexion (L2) 5 Normal Extension (S1) 4+ Good+ Abduction 5 Normal Adduction 5 Normal Left Flexion (L2) 5 Normal Extension (S1) 5 Normal Abduction 5 Normal Adduction 5 Normal PT-OP-Q Treatments Start: 05/23/20 19:58 Freq: Status: Active Protocol: Document 07/03/20 09:48 SP (Rec: 07/03/20 15:56 SP [id number]) Cardio Equipment Bicycle (Upright) Duration (Minutes) 5 Resistance 8 Seat Position MIN Other good warm up Therapeutic Exercises Supine Exercises core march Supine Exercise Name alternate BLE while elevated ( modified bicycle-touch down) Reps/Minutes 2 x15 Comments good core stab core heel slide Supine Exercise Name double legs together Side bilateral Reps/Minutes x10 Comments cued and good PPT awareness & not full range ni stabiliize BKFO Comments to easy now 07/03 Hip AB/AD Supine Exercise Name abduction Side bilateral Resistance #2 TB Reps/Minutes 2x15 Comments review HEP- cued slow and 1/2 range to stab LB Bridging Supine Exercise Name Bridge with and without TBand Equipment Used Lev 2 TB Reps/Minutes 15x each Comments HEP review Prone Exercises elbow plank off toes Reps/Minutes 30 sec (HEP review) Comments goodPPT and glut fac. modified super man Prone Exercise Name arms side Reps/Minutes 30 sec Comments good core- instructed no ams [place] due to core stress Hip Ext Prone Exercise Name R > L hip ext strengthening Side bilateral Reps/Minutes 3x10 reps at home Comments cued awareness of upper body slight recruitment more core fac Sidelying Exercises Abduction Resistance TB #2 Reps/Minutes 2x15 Comments VC x1 to keep hips stacked Standing Exercises squat Resistance AROM (10-12 # DB at home gym) Equipment Used 16 inc box to hip hinge to Reps/Minutes x5 Comments reviewed for proper form, cued hip hinge to box target, good posture hip flexor stretch 1/2 kneel LE on bench Standing Exercise Name in gym Side bilateral Equipment Used bench or discussed on floor Reps/Minutes 30 PT-OP-R Modalities Start: 05/23/20 19:58 Freq: Status: Active Protocol: Document 06/19/20 18:37 MA (Rec: 06/19/20 18:37 MA [id number]) Ultrasound Therapy Treatment L knee Treatment Duration (minutes) 8 Patient Position Prone Coupling Medium Ultrasound Gel Applicator Size (cm2) 5 Duty Cycle 50% Intensity Setting (w/cm2) 1.0 PT-OP-T Assessment and Plan Start: 05/23/20 19:58 Freq: Status: Active Protocol: Document 07/03/20 09:48 SP (Rec: 07/03/20 15:56 SP [id number]) Physical Therapy Assessment Goals Four Impairment Swelling in L knee limiting knee flexion tolerance. Short Term Goal (STG) Decrease swelling in the L knee with reduction in posterior knee pain to 0-1/10. (06/29/20: L knee full flexion without pain after ultrasound) STG Duration 06/30/20 (06/29/20: Improving, pain 0-2/10). Placement Interviewer Goal (LTG) Pt will be able to sit by pulling legs under her for greater than 20 minutes. LTG Duration 08/24/20 (06/29/20: NOT MET, not attempted) Three Impairment Decreased R hip strength (AB 3 /5, ext 3/5) preventing ex walking/hiking. Short Term Goal (STG) Increase R hip strength to no less than 4/5 with pt able to roll around in bed without R hip pain. 06/29/20: L knee pain 0-2/10. R hip is tight when on L side sidelie. STG Duration 06/30/20 (06/29/20: MET GOAL ) Usp Goal (LTG) Pt will be able to get back to walking/hiking comfortably 1- 2 miles and confident to progress independently ( acceptable back pain of 2-3/ 10) LTG Duration 08/24/20 (06/29/20: MET GOAL ) Two Impairment R hip pain (rated 4/10) limiting gait mechanics ( antalgic gait). Short Term Goal (STG) Decrease R hip pain to 0/10. STG Duration 06/30/20 (06/29/20: Improving; sometimes 0/10) Usp Goal (LTG) Pt will be able to demonstrate normal gait mechanics. LTG Duration 08/24/20 One Impairment Pt lacks an appropriate self care HEP. Short Term Goal (STG) Pt will be independent in a R hip AB/ext strengthening and hip ER/IR ROM ex's. STG Duration 06/09/20 (06/29/20: MET GOAL ) Usp Goal (LTG) Pt will be independent in a self care HEP to include strengthening ex equipment that would be appropriate for the pt to continue independently. LTG Duration 08/24/20 (06/29/20: MET GOAL to this date). Assessment Summary Assessment Pt arrived with wanting to reassess HEP and gym exercises for consolidated and to just more challenging with good form perferred. See today's note for supine ex so far. Next tx continue standing plan previously planned. Pt improved in core facilitation with HEP today and knee strengthening squat alignment/ form she wanted to add. Physical Therapy Plan Frequency and Duration Frequency of Treatment 2x/Week Plan of Care Start Date 05/26/20 Plan of Care End Date 08/24/20 Therapeutic Interventions Therapeutic Interventions Gait Training,Home Exercise Program,Joint Mobilizations, Manual Therapy,Neuromuscular Re-education,Patient/Caregiver Education,Self-Care/Home Management,Therapeutic Exercises Modalities Cold Pack/Ice Massage,Electric Stimulation,Hot Packs, Ultrasound Next Visit Focus/Plan Next Note Type Treatment Note Next Visit Plan Progress core strengthening. Start gait training and balance activities to help her transition to hiking on trails, and assess her ability to sit by pulling her legs under her she is appropriate to try it. Next tx add eccentric stair retro/lat, HS curl seated cable/TB, wt calf raises for gym progresses and continue stretching. STM Psoas , quad, TFL. Continue per PT POC: piriformis stretch and DTM to TFL & ITB for R hip as needed to decrease pain and improve flexibility.
--- NOTE | 2020-07-10 16:55 | PT.OTN ---
Current Diagnoses Pain in right hip (07/10/20) Pain in left knee (07/10/20) Physical Therapy Treatment Note PT-OP-A Visit Information Start: 05/23/20 19:58 Freq: Status: Active Protocol: Document 07/10/20 09:51 LRN (Rec: 07/10/20 10:37 LRN [id number]) Out-Patient Physical Therapy Visit Information Visit Information Visit Type Treatment Note Visit Note 1 after PN Visit Start Time 09:51 Visit Stop Time 09:34 Total Visit Minutes 43 Visit Number 13 Evaluation Information Evaluation Date 05/26/20 Precautions Precautions CA history: Breast cancer w/R lumpectomy - 05/2018. Back pain due to arthritis. Osteopenia L femoral neck. HTN, Hypothyroid, Amaury's thyroiditis PT-OP-B Current Condition Start: 05/23/20 19:58 Freq: Status: Active Protocol: Document 05/26/20 13:35 LRN (Rec: 05/26/20 14:27 LRN [id number]) Current Condition History of Current Condition Onset Date 2.5 months ago. 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 States it is greatly affecting her activity level. States Dr. Osborn is concerned about her kidneys and doesn't want her taking anti-inflammatory medications. States she initially took IBP for only 2 days and found it very helpful in reducing L knee pain. Activity helps decreased the knee pain but not the hip. Prior Treatments and Tests None. 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 Pre TASHI was a walker , walking 8 miles with a walking group that stopped due to COVID outbreak. Her activity level drastically reduced. 2 months ago at [employer] was stepping up with L leg and heard a pop in the back of the L knee. Had nauseating pain for 10 minutes , then it dissipated quite a bit. Then started compensating with gait by limping and 2-3 wks ago the R hip started to hurt. PT was decided needed. Had a massage this morning with a message from massage therapist saying she had an inflamed TFL, HT of Glut min & med., up IT Band. Treatment Goals Patient/Caregiver Goals Pt goals with therapy is to get back to moving comfortably (hike with back pain 2-3/10), able to sit with legs folded > 30 minutes, roll in bed without hip pain, and be told which ex equipment of her neighbors she can safely exercise with. 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 Baseline Function- Recreation/Hobbies Hiked routinely 4-5 miles with 600-800 elevation gain. Walked easily around [facility]. Baseline Function- Other Able to sit with legs folded for 1-2 hours. Current Functional Impairments (Reported) Functional Limitations- ADL's Rolling around in bed is sometimes painful. Able to sit with legs folded no more than 20 minutes. Functional Limitations- Mobility/Gait Walking in the house and mailbox (100 yards). Ambulates with an antalgic gait Functional Limitations- Work/School No change with work duties. Personal Factors Other Personal Factors That May Effect Arthritis causing back pain, Therapy/Recovery Breast cancer w/lumpectomy right May 2018. Cancer free thus far. Obesity (BMI 30-39.9) per record review. PT-OP-C Subjective Start: 05/23/20 19:58 Freq: Status: Active Protocol: Document 07/10/20 09:51 LRN (Rec: 07/10/20 10:37 LRN [id number]) OP-PT Subjective Patient Comments Patient Comments Walking in the [place], pretty good, can feel it behind the L knee afterwards. The hip is no longer an issue. Walking 2 .3 miles. PT-OP-D Balance Start: 05/23/20 19:58 Freq: Status: Active Protocol: Document 05/26/20 13:35 LRN (Rec: 05/26/20 14:49 LRN [id number]) Balance Tests Single Limb Standing Single Limb- Right 60+. hands crossing chest Single Limb- Left 30. hands crossing chest Tandem Tandem Standing 60+ either foot behind, Hands on hips PT-OP-G Mobility & Gait Start: 05/23/20 19:58 Freq: Status: Active Protocol: Document 05/26/20 13:35 LRN (Rec: 05/26/20 14:27 LRN [id number]) OP Gait Assessment Gait Gait Assistance Required: Independent Assistive Devices Assistive Device None Gait Deviations General Gait Pattern Antalgic Factors Limiting Gait Function Factors Limiting Gait Function Decreased Activity Tolerance, Decreased Strength,Pain Comments Gait Comments Leans to R with gait. PT-OP-J Posture/Palpation/Skin Start: 05/23/20 19:58 Freq: Status: Active Protocol: Document 05/26/20 13:35 LRN (Rec: 05/26/20 14:49 LRN [id number]) Posture Evaluation Position Standing Head/C-Spine Posture Forward Head T-Spine Posture Flattened L-Spine Posture Increased Lordosis Pelvis Posture Anteriorly Tilted Weight Distribution Weight Shifted Left Hip Posture (L) Flexed,(R) Flexed Knee Posture (L) Genu Valgus,(R) Genu Valgus Ankle/Foot Posture (L) Supinated,(R) Supinated Foot Arch (L) High Arch,(R) High Arch Palpation Assessment Location L knee Palpation Location Posterior aspect of the knee and above/below joint line Palpation Findings Tenderness R hip Palpation Location TFL, ITBand, Greater Trochanter, Gluteals Palpation Findings Tenderness Palpation Details Tightness R TFL and Gluteals compared to L. PT-OP-K Range of Motion Start: 05/23/20 19:58 Freq: Status: Active Protocol: Document 06/29/20 09:03 LRN (Rec: 06/29/20 10:07 LRN [id number]) Knee Goniometric Range of Motion Knee Left Knee ROM WFL Yes Patient Position Supine Comments Normal AROM. Max PROM is without pain. PT-OP-L Special Tests Start: 05/23/20 19:58 Freq: Status: Active Protocol: Document 06/02/20 09:51 LRN (Rec: 06/02/20 10:36 LRN [id number]) Special Tests Hip Special Tests Straight Leg Raise Test Results - Bilaterally Comments PSLR 100 deg's prior to hamstring tightness. Knee Special Tests Apley's Compression Comments No pain L knee. Varus- 25 Degrees Test Results Negative Comments No pain L knee. Patellar Grind Test Test Results Negative Comments No pain L knee. Valgus- 25 Degrees Test Results negative Comments No pain L knee. Valgus- 0 Degrees Test Results negative Comments No pain L knee. Posterior Draw Test Results negative Comments No pain L knee. Daya's Test Results Negative Comments No pain L knee. Bounce Home Test Results negative Comments No pain L knee. Anterior Draw Test Results negative Comments No pain L knee. PT-OP-M Strength Start: 05/23/20 19:58 Freq: Status: Active Protocol: Document 06/29/20 08:59 LRN (Rec: 06/29/20 09:52 LRN [id number]) Hip Strength Hip Manual Muscle Testing Right Flexion (L2) 5 Normal Extension (S1) 4+ Good+ Abduction 5 Normal Adduction 5 Normal Left Flexion (L2) 5 Normal Extension (S1) 5 Normal Abduction 5 Normal Adduction 5 Normal PT-OP-Q Treatments Start: 05/23/20 19:58 Freq: Status: Active Protocol: Document 07/10/20 09:51 LRN (Rec: 07/10/20 10:37 LRN [id number]) Gym Equipment Cable Column (Body Solid) Leg Curl Details (Seat 6 holes) L leg controlling return Resistance 20# Therapeutic Exercises Prone Exercises elbow plank off toes Reps/Minutes 30 sec (HEP review) Comments goodPPT and glut fac. modified super man Prone Exercise Name arms side Reps/Minutes 30 sec Comments good core- instructed no ams [place] due to core stress Hip Ext Prone Exercise Name Hip Ext strengthening Side bilateral Equipment Used 1# Reps/Minutes 10x 3 Knee flex Prone Exercise Name Hamstring curl w/folded towel above knee Side left Equipment Used 5x Reps/Minutes 30x Sidelying Exercises L hip ER/knee flex stretch Sidelying Exercise Name L leg (90/90 flexed in ER) stretch Side left Reps/Minutes 30 Comments L knee discomfort posteriorly Standing Exercises Quad Ecc Loading Standing Exercise Name stair retro/lat Reps/Minutes 10 x squat Resistance AROM (10 #) Equipment Used 16 inc box to hip hinge to Reps/Minutes 12 x 2 Comments Cued for proper form, cued hip hinge to box target, good posture Other Exercises Child Pose Other Exercise Name Child Pose like positioning Comments Pt able to do 50% position PT-OP-R Modalities Start: 05/23/20 19:58 Freq: Status: Active Protocol: Document 07/10/20 09:51 LRN (Rec: 07/10/20 10:37 LRN [id number]) Ultrasound Therapy Treatment L knee Treatment Duration (minutes) 8 Patient Position Prone Coupling Medium Ultrasound Gel Applicator Size (cm2) 5 Duty Cycle 50% Intensity Setting (w/cm2) 1.0 PT-OP-T Assessment and Plan Start: 05/23/20 19:58 Freq: Status: Active Protocol: Document 07/10/20 09:51 LRN (Rec: 07/10/20 10:37 LRN [id number]) Physical Therapy Assessment Goals Four Impairment Swelling in L knee limiting knee flexion tolerance. Short Term Goal (STG) Decrease swelling in the L knee with reduction in posterior knee pain to 0-1/10. (06/29/20: L knee full flexion without pain after ultrasound) STG Duration 06/30/20 (06/29/20: Improving, pain 0-2/10). Digital Court Reporter Goal (LTG) Pt will be able to sit by pulling legs under her for greater than 20 minutes. (07/10/20: Pt able to tolerate in Prayer/Child pose after ultrasound). LTG Duration 08/24/20 (06/29/20: NOT MET, not attempted) Three Impairment Decreased R hip strength (AB 3 /5, ext 3/5) preventing ex walking/hiking. Short Term Goal (STG) Increase R hip strength to no less than 4/5 with pt able to roll around in bed without R hip pain. 06/29/20: L knee pain 0-2/10. R hip is tight when on L side sidelie. STG Duration 06/30/20 (06/29/20: MET GOAL ) Half-Way Goal (LTG) Pt will be able to get back to walking/hiking comfortably 1- 2 miles and confident to progress independently ( acceptable back pain of 2-3/ 10) LTG Duration 08/24/20 (06/29/20: MET GOAL ) Two Impairment R hip pain (rated 4/10) limiting gait mechanics ( antalgic gait). Short Term Goal (STG) Decrease R hip pain to 0/10. STG Duration 06/30/20 (07/10/20: MET GOAL) Half-Way Goal (LTG) Pt will be able to demonstrate normal gait mechanics. LTG Duration 08/24/20 (07/10/20: Improving ) One Impairment Pt lacks an appropriate self care HEP. Short Term Goal (STG) Pt will be independent in a R hip AB/ext strengthening and hip ER/IR ROM ex's. STG Duration 06/09/20 (06/29/20: MET GOAL ) Digital Court Reporter Goal (LTG) Pt will be independent in a self care HEP to include strengthening ex equipment that would be appropriate for the pt to continue independently. LTG Duration 08/24/20 (06/29/20: MET GOAL to this date). Progress Towards Goals Progress Comments Pt R hip pain is no longer a problem per pt report. Assessment Summary Assessment Pt R hip pain appears resolved . She is tender posterior L knee, inferior to the popliteal fold, Gastrocnemius is possible reason for swelling. Pt was able to perform Prayer/Child pose after Ultrasound with comfort. Physical Therapy Plan Frequency and Duration Frequency of Treatment 2x/Week Plan of Care Start Date 05/26/20 Plan of Care End Date 08/24/20 Next Visit Focus/Plan Next Note Type Treatment Note Next Visit Plan Issue HEP for TB knee curls sitting and prone. Start gait training and balance activities to help her transition to hiking on trails , progress core strengthening. Next tx add eccentric, HS curl seated cable/TB, wt calf raises for gym progresses and continue stretching. STM Psoas , quad, TFL.
--- NOTE | 2020-07-13 16:54 | PT.OTN ---
Current Diagnoses Pain in right hip (07/13/20) Pain in left knee (07/13/20) Physical Therapy Treatment Note PT-OP-A Visit Information Start: 05/23/20 19:58 Freq: Status: Active Protocol: Document 07/13/20 09:04 LRN (Rec: 07/13/20 09:49 LRN [id number]) Out-Patient Physical Therapy Visit Information Visit Information Visit Type Treatment Note Visit Start Time 09:04 Visit Stop Time 09:45 Total Visit Minutes 41 Visit Number 14 Evaluation Information Evaluation Date 05/26/20 Precautions Precautions CA history: Breast cancer w/R lumpectomy - 05/2018. Back pain due to arthritis. Osteopenia L femoral neck. HTN, Hypothyroid, Amaury's thyroiditis PT-OP-B Current Condition Start: 05/23/20 19:58 Freq: Status: Active Protocol: Document 05/26/20 13:35 LRN (Rec: 05/26/20 14:27 LRN [id number]) Current Condition History of Current Condition Onset Date 2.5 months ago. 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 States it is greatly affecting her activity level. States Dr. Osborn is concerned about her kidneys and doesn't want her taking anti-inflammatory medications. States she initially took IBP for only 2 days and found it very helpful in reducing L knee pain. Activity helps decreased the knee pain but not the hip. Prior Treatments and Tests None. 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 Pre TASHI was a walker , walking 8 miles with a walking group that stopped due to COVID outbreak. Her activity level drastically reduced. 2 months ago at [employer] was stepping up with L leg and heard a pop in the back of the L knee. Had nauseating pain for 10 minutes , then it dissipated quite a bit. Then started compensating with gait by limping and 2-3 wks ago the R hip started to hurt. PT was decided needed. Had a massage this morning with a message from massage therapist saying she had an inflamed TFL, HT of Glut min & med., up IT Band. Treatment Goals Patient/Caregiver Goals Pt goals with therapy is to get back to moving comfortably (hike with back pain 2-3/10), able to sit with legs folded > 30 minutes, roll in bed without hip pain, and be told which ex equipment of her neighbors she can safely exercise with. 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 Baseline Function- Recreation/Hobbies Hiked routinely 4-5 miles with 600-800 elevation gain. Walked easily around [facility]. Baseline Function- Other Able to sit with legs folded for 1-2 hours. Current Functional Impairments (Reported) Functional Limitations- ADL's Rolling around in bed is sometimes painful. Able to sit with legs folded no more than 20 minutes. Functional Limitations- Mobility/Gait Walking in the house and mailbox (100 yards). Ambulates with an antalgic gait Functional Limitations- Work/School No change with work duties. Personal Factors Other Personal Factors That May Effect Arthritis causing back pain, Therapy/Recovery Breast cancer w/lumpectomy right May 2018. Cancer free thus far. Obesity (BMI 30-39.9) per record review. PT-OP-C Subjective Start: 05/23/20 19:58 Freq: Status: Active Protocol: Document 07/13/20 09:04 LRN (Rec: 07/13/20 09:49 LRN [id number]) OP-PT Subjective Patient Comments Patient Comments States she is not going to be coming to therapy any more because [facility] is now at high risk and since she lives with a high risk person, she is going to self isolation. States after the last session it was too much and the knees hurt but ice helped to normalize the pain. Pt would like to be set up on home program until she can come back. Patient Questionnaires Lower Extremity Functional Scale LEFS Score 58 LEFS Impairment 20 to 39% Impaired (Score 48- 62) PT-OP-D Balance Start: 05/23/20 19:58 Freq: Status: Active Protocol: Document 05/26/20 13:35 LRN (Rec: 05/26/20 14:49 LRN [id number]) Balance Tests Single Limb Standing Single Limb- Right 60+. hands crossing chest Single Limb- Left 30. hands crossing chest Tandem Tandem Standing 60+ either foot behind, Hands on hips PT-OP-G Mobility & Gait Start: 05/23/20 19:58 Freq: Status: Active Protocol: Document 07/13/20 09:04 LRN (Rec: 07/13/20 16:40 LRN [id number]) OP Gait Assessment Gait Gait Assistance Required: Independent Distance (Feet) 60 Able to Maintain Weight Bearing Status Yes During Gait Assistive Devices Assistive Device None Gait Deviations General Gait Pattern Within Normal Limits PT-OP-J Posture/Palpation/Skin Start: 05/23/20 19:58 Freq: Status: Active Protocol: Document 05/26/20 13:35 LRN (Rec: 05/26/20 14:49 LRN [id number]) Posture Evaluation Position Standing Head/C-Spine Posture Forward Head T-Spine Posture Flattened L-Spine Posture Increased Lordosis Pelvis Posture Anteriorly Tilted Weight Distribution Weight Shifted Left Hip Posture (L) Flexed,(R) Flexed Knee Posture (L) Genu Valgus,(R) Genu Valgus Ankle/Foot Posture (L) Supinated,(R) Supinated Foot Arch (L) High Arch,(R) High Arch Palpation Assessment Location L knee Palpation Location Posterior aspect of the knee and above/below joint line Palpation Findings Tenderness R hip Palpation Location TFL, ITBand, Greater Trochanter, Gluteals Palpation Findings Tenderness Palpation Details Tightness R TFL and Gluteals compared to L. PT-OP-K Range of Motion Start: 05/23/20 19:58 Freq: Status: Active Protocol: Document 06/29/20 09:03 LRN (Rec: 06/29/20 10:07 LRN [id number]) Knee Goniometric Range of Motion Knee Left Knee ROM WFL Yes Patient Position Supine Comments Normal AROM. Max PROM is without pain. PT-OP-L Special Tests Start: 05/23/20 19:58 Freq: Status: Active Protocol: Document 06/02/20 09:51 LRN (Rec: 06/02/20 10:36 LRN [id number]) Special Tests Hip Special Tests Straight Leg Raise Test Results - Bilaterally Comments PSLR 100 deg's prior to hamstring tightness. Knee Special Tests Apley's Compression Comments No pain L knee. Varus- 25 Degrees Test Results Negative Comments No pain L knee. Patellar Grind Test Test Results Negative Comments No pain L knee. Valgus- 25 Degrees Test Results negative Comments No pain L knee. Valgus- 0 Degrees Test Results negative Comments No pain L knee. Posterior Draw Test Results negative Comments No pain L knee. Daya's Test Results Negative Comments No pain L knee. Bounce Home Test Results negative Comments No pain L knee. Anterior Draw Test Results negative Comments No pain L knee. PT-OP-M Strength Start: 05/23/20 19:58 Freq: Status: Active Protocol: Document 06/29/20 08:59 LRN (Rec: 06/29/20 09:52 LRN [id number]) Hip Strength Hip Manual Muscle Testing Right Flexion (L2) 5 Normal Extension (S1) 4+ Good+ Abduction 5 Normal Adduction 5 Normal Left Flexion (L2) 5 Normal Extension (S1) 5 Normal Abduction 5 Normal Adduction 5 Normal PT-OP-Q Treatments Start: 05/23/20 19:58 Freq: Status: Active Protocol: Document 07/13/20 09:04 LRN (Rec: 07/13/20 09:49 LRN [id number]) Therapeutic Exercises Sitting Exercises Ankle IV Sitting Exercise Name Ankle IV strengthening Side bilateral Reps/Minutes 15x Comments Extra time taken for positioning properly Ankle EV Sitting Exercise Name Ankle EV strengthening Side bilateral Reps/Minutes 15x Comments Extra time taken to teach proper movement for no knee pain Knee Flex Sitting Exercise Name Knee flex strengthening Side bilateral Equipment Used Lev 1 TB Reps/Minutes 10x each Standing Exercises Toe ups/Heel ups Standing Exercise Name Toe/Heel lifts Side bilateral Equipment Used // Bars Reps/Minutes 15x each holding couple secs Comments Extra time for training Gait Training Gait Activity Gait on level Description Pt awareness of gait with pronation of ankles Treatment Focus Educating pt on awareness of ankle pronating and discussion : changing shoe Comments Due to pandemic restrictions pt is choosing to change the shoes she wears vs purchase new shoes. Neuro Re-Education Treatment Balance Activities SLS Details SLS Surface Firm & Gr foam Reps/Duration 16' Self-Care/Home Management Treatment Education Patient Education Home Exercise Program Activities Self-Care/Home Management Activities Pt issued & reviewed HEP: Ankle ex's PF/DF/EV & knee flexion strengthening with TB for conc/ecc strengthening. Verbal I/S for SLS balance: Wgt shift and 1' SLS on level firm to folded towel to pillow . PT-OP-R Modalities Start: 05/23/20 19:58 Freq: Status: Active Protocol: Document 07/10/20 09:51 LRN (Rec: 07/10/20 10:37 LRN [id number]) Ultrasound Therapy Treatment L knee Treatment Duration (minutes) 8 Patient Position Prone Coupling Medium Ultrasound Gel Applicator Size (cm2) 5 Duty Cycle 50% Intensity Setting (w/cm2) 1.0 PT-OP-T Assessment and Plan Start: 05/23/20 19:58 Freq: Status: Active Protocol: Document 07/13/20 09:04 LRN (Rec: 07/13/20 09:49 LRN [id number]) Physical Therapy Assessment Goals Four Impairment Swelling in L knee limiting knee flexion tolerance. Short Term Goal (STG) Decrease swelling in the L knee with reduction in posterior knee pain to 0-1/10. (06/29/20: L knee full flexion without pain after ultrasound) STG Duration 06/30/20 (07/13/20: Improved, pain 0-2/10). Safety Instructor Goal (LTG) Pt will be able to sit by pulling legs under her for greater than 20 minutes. (07/10/20: Pt able to tolerate in Prayer/Child pose after ultrasound). LTG Duration 08/24/20 (07/13/20: MET GOAL, unknown for 20' of time) Three Impairment Decreased R hip strength (AB 3 /5, ext 3/5) preventing ex walking/hiking. Short Term Goal (STG) Increase R hip strength to no less than 4/5 with pt able to roll around in bed without R hip pain. (06/29/20: L knee pain 0-2/10. R hip is tight when on L side sidelie). STG Duration 06/30/20 (06/29/20: MET GOAL ) Safety Instructor Goal (LTG) Pt will be able to get back to walking/hiking comfortably 1- 2 miles and confident to progress independently ( acceptable back pain of 2-3/ 10) LTG Duration 08/24/20 (06/29/20: MET GOAL ) Two Impairment R hip pain (rated 4/10) limiting gait mechanics ( antalgic gait). Short Term Goal (STG) Decrease R hip pain to 0/10. STG Duration 06/30/20 (07/10/20: MET GOAL) Safety Instructor Goal (LTG) Pt will be able to demonstrate normal gait mechanics. LTG Duration 08/24/20 (07/13/20: MET GOAL) One Impairment Pt lacks an appropriate self care HEP. Short Term Goal (STG) Pt will be independent in a R hip AB/ext strengthening and hip ER/IR ROM ex's. STG Duration 06/09/20 (06/29/20: MET GOAL ) Assisted Goal (LTG) Pt will be independent in a self care HEP to include strengthening ex equipment that would be appropriate for the pt to continue independently. LTG Duration 08/24/20 (07/13/20: MET GOAL). Assessment Summary Assessment Pt has done very well with physical therapy and is now able to ambulate with a normal gait. She has mild swelling at the L knee and is only limited in her ability to sit on her heels, but the pt notes she doesn't plan on sitting in this position anymore. Bing has theraband at home but not ankle weights, and her family next door to her has exercise equipment that she plans on continuing to use to maintain her current status. I deferred teaching her prone knee flex strengthening exercises because she has appropriate alternative exercises she can do. It is expected that the pt will do fine on a home program at this time, but if she continues to have problems with swelling at the posterior L knee, then perhaps further imaging may be helpful to determinne the source of her knee irritation. No further therapy is planned at this time. Physical Therapy Plan Discharge Physical Therapy Discharge Reasons Patient Request Discharge Comments The pt is being discharged due to concerns of COVID 19 virus . The pt understands if further therapy is needed in the future she will need to seek another referral before return. Thank you for your referral.
== END 2020-07-17 08:27 ==
LOC: PHYS 09:00
PROVIDERS: PCP Family Medicine; Referring Provider Family Medicine; Visit Provider Family Medicine
DX: M25.562 Pain in left knee (principal); M25.551 Pain in right hip
CPT/HCPCS: 97035; 97110; 97112; 97140; 97162; 97535

== ENCOUNTER → 2020-07-20 06:54 | Outpatient (CLI) | payer MEDICARE, BC, SELFPAY ==
[2020-08-03 01:07] LABS: Triiodothyronine T3 Reverse 22.6 ng/dL (9.2-24.1)
== END ==
PROVIDERS: PCP Family Medicine; Referring Provider Family Medicine; Visit Provider Family Medicine
DX: I10 Essential (primary) hypertension (principal); E06.3 Autoimmune thyroiditis
CPT/HCPCS: 84482

== ENCOUNTER → 2020-10-05 12:39 | Outpatient (CLI) | payer MEDICARE, BC, SELFPAY ==
--- NOTE | 2020-10-05 12:40 | DI.RAD.S_ITS ---
PROCEDURE: FL BARIUM SWALLOW INDICATIONS: feels like pills are getting stuck COMPARISON: None. FINDINGS: Function: There is decreased esophageal peristalsis. Delayed esophageal clearance is present. No elicited gastroesophageal reflux. There is normal transit of a calibrated barium tablet through the esophagus into the stomach. Morphology: Air-contrast images demonstrate normal mucosal morphology. Single contrast views show no esophageal strictures, extrinsic mass effects, or diverticula. Limited images of the stomach demonstrate normal appearance. IMPRESSION: Esophageal dysmotility. Delayed esophageal clearance. Of note however, normal transit time of calibrated barium tablet. Dictated by: Westley Browning M.D. on 10/05/2020 at 13:56 Approved by: Westley Browning M.D. on 10/05/2020 at 13:57
== END ==
PROVIDERS: PCP Family Medicine; Referring Provider Family Medicine; Visit Provider Family Medicine
DX: R13.10 Dysphagia, unspecified (principal); K22.4 Dyskinesia of esophagus; Z23 Encounter for immunization
CPT/HCPCS: 0011A; 74220; 91301

== ENCOUNTER → 2020-10-05 16:28 | Outpatient (CLI) | payer MEDICARE, BC, SELFPAY ==
[2020-10-05] MEDS: COVID-19 VACC #1, MRNA(MOD) 100 MCG/0.5 ML VIAL IM (16:38)
== END ==
PROVIDERS: PCP Family Medicine; Visit Provider Internal Medicine
DX: Z23 Encounter for immunization (principal)
CPT/HCPCS: 0011A; 91301

== ENCOUNTER → 2020-11-02 07:38 | Outpatient (CLI) | payer MEDICARE, BC, SELFPAY ==
[2020-11-02] MEDS: COVID-19 VACC #2, MRNA(MOD) 100 MCG/0.5 ML VIAL IM (07:44)
== END ==
PROVIDERS: PCP Family Medicine; Visit Provider Internal Medicine
DX: Z23 Encounter for immunization (principal)
CPT/HCPCS: 0012A; 91301

== ENCOUNTER → 2021-02-20 10:33 | Outpatient (CLI) | payer MEDICARE, BC, SELFPAY ==
--- NOTE | 2021-02-20 10:34 | DI.MG.S_ITS ---
BILATERAL DIGITAL SCREENING MAMMOGRAM 3D/2D WITH CAD POST LUMPECTOMY: 02/20/2021 CLINICAL: Routine screening. Breast cancer. Comparison is made to exams dated: 02/18/2020 mammogram, 01/19/2019 mammogram, and 05/20/2018 mammogram - [facility]. There are scattered fibroglandular elements in both breasts. Current study was also evaluated with a Computer Aided Detection (CAD) system. There are benign post operative findings in the right breast. No significant masses, calcifications, or other findings are seen in either breast. There has been no significant interval change. IMPRESSION: BENIGN There is no mammographic evidence of malignancy. A 1 year screening mammogram is recommended. This exam was interpreted at Station ID: [id number]. NOTE: For mammograms, a report in lay terms will be sent to the patient. Approximately 15% of breast malignancies will not be visualized mammographically. In the management of a palpable breast mass, a negative mammogram must not discourage biopsy of a clinically suspicious lesion. Electronically Signed By: Mike Torrez M.D., jr/olivia:02/20/2021 12:52:56 copy to: IAIN FIGUEROA letter sent: Normal Exam ACR BI-RADS Category 2: Benign Finding(s) 3342F
== END ==
PROVIDERS: PCP Family Medicine; Referring Provider Internal Medicine Hematology & Oncology; Visit Provider Internal Medicine Hematology & Oncology
DX: Z12.31 Encounter for screening mammogram for malignant neoplasm of breast (principal); C50.911 Malignant neoplasm of unspecified site of right female breast
CPT/HCPCS: 77063; 77067

== ENCOUNTER → 2021-04-02 08:26 | Outpatient (CLI) | payer MEDICARE, BC, SELFPAY ==
[2021-04-02 08:44] LABS: Add Manual Diff / Slide Review NO; Basophils Absolute Auto 0 /uL (0-100); Eosinophils Absolute Auto 100 /uL (0-450); Lymphocytes Absolute Auto 1100 /uL (1100-4500); Lymphocytes Percent Auto 23.1 % (25-40); Mean Corpuscular HGB Conc 33.4 % (30-36); Mean Corpuscular Hemoglobin 30.4 PG (26-34); Mean Corpuscular Volume 91.2 fL (80-100); Monocytes Absolute Auto 400 /uL (0-900); Monocytes Percent Auto 8.5 % (3-14); Neutrophils Absolute Auto 3100 /uL (1500-7000); Neutrophils Percent Auto 64.4 % (50-75); Platelet Count 264 X10^3/uL (150-400); Red Blood Cell Count 4.61 X10^6/uL (4.0-5.2); Red Cell Distribution Width 13.4 % (11.6-14.8); White Blood Cell Count 4.8 X10^3/uL (4.5-11.0)
[2021-04-02 08:56] LABS: Alanine Aminotransferase 25 IU/L (<35); Albumin 4.1 g/dL (3.5-5.0); Albumin Globulin Ratio 1.2 (1.0-2.8); Alkaline Phosphatase 73 U/L (38-126); Aspartate Aminotransferase 33 IU/L (14-36); BUN Creatinine Ratio 20.8 (6-22); Bilirubin Total 0.5 mg/dL (0.2-1.3); Blood Urea Nitrogen 16 mg/dL (7-17); Carbon Dioxide 29 mmol/L (22-32); Chloride 106 mmol/L (98-107); Estimated Glomerular Filt Rate > 60.0 mL/min (>60); Globulin 3.3 g/dL (1.7-4.1); Glucose 117 mg/dL (80-110); HEMOLYSIS < 15 (0-50); Potassium 3.9 mmol/L (3.4-5.1); Sodium 141 mmol/L (137-145); Total Protein 7.4 g/dL (6.3-8.2)
== END ==
PROVIDERS: PCP Family Medicine; Referring Provider Internal Medicine Hematology & Oncology; Visit Provider Internal Medicine Hematology & Oncology
DX: C50.911 Malignant neoplasm of unspecified site of right female breast (principal)
CPT/HCPCS: 36415; 80053; 85025

== ENCOUNTER → 2021-05-18 13:24 | Outpatient (CLI) | payer MEDICARE, BC, SELFPAY ==
[2021-05-18 14:54] LABS: Free T3, Triiodothyronine Free 3.57 pg/mL (2.77-5.27); Free T4, Direct Thyroxine 1.38 ng/dL (0.78-2.19)
[2021-05-18 15:08] LABS: Thyroid Stimulating Hormone 0.999 uIU/mL (0.47-4.68)
[2021-05-19 06:11] LABS: Thyroid Peroxidase Antibodies 122 IU/mL (0-34)
[2021-05-19 21:52] LABS: Anti Thyroglobulin Antibody 141.9 IU/mL (0.0-0.9)
[2021-05-24 16:17] LABS: Triiodothyronine T3 Reverse 18.4 ng/dL (9.2-24.1)
== END ==
PROVIDERS: PCP Family Medicine; Referring Provider Family Medicine; Visit Provider Family Medicine
DX: E06.3 Autoimmune thyroiditis (principal)
CPT/HCPCS: 36415; 84439; 84443; 84481; 84482; 86376; 86800

== ENCOUNTER → 2021-08-08 16:48 | Outpatient (CLI) | payer MEDICARE, BC, SELFPAY ==
[2021-08-08 18:49] LABS: BUN Creatinine Ratio 24.3 (6-22); Blood Urea Nitrogen 18 mg/dL (7-17); Calcium 9.9 mg/dL (8.4-10.2); Carbon Dioxide 30 mmol/L (22-32); Chloride 100 mmol/L (98-107); Estimated Glomerular Filt Rate > 60.0 mL/min (>60); Glucose 90 mg/dL (80-110); HEMOLYSIS < 15 (0-50); Potassium 4.3 mmol/L (3.4-5.1); Sodium 138 mmol/L (137-145)
[2021-08-08 19:18] LABS: TSH w/ Reflex to FT4 1.22 uIU/mL (0.47-4.68)
== END ==
PROVIDERS: PCP Family Medicine; Referring Provider Family Medicine; Visit Provider Family Medicine
DX: E06.3 Autoimmune thyroiditis (principal); E83.52 Hypercalcemia; I10 Essential (primary) hypertension
CPT/HCPCS: 36415; 80048; 84443

== ENCOUNTER → 2021-08-20 09:30 | Outpatient (CLI) | payer MEDICARE, BC, SELFPAY ==
--- NOTE | 2021-09-10 09:07 | P.HOLT.S_ITS ---
Cocktail Server Report Referral & Results Date Patient Seen: 08/20/21 Requesting provider: Yaritza Osborn Indication: Tachycardia Duration of monitoring (days): 14 Diary information: There were 4 patient diary events Patient diary events were associated with (within 45 seconds) sinus rhythm and PACs Data: Minimum heart rate identified was 45 beats per minute at 04:58 on 08/22/2021 Maximum sinus heart rate was 162 beats per minute at 09:04 on 09/02/2021 Maximum overall heart rate was 164 beats per minute at 21:52 on 08/30/2021 duri ng a run of SVT Less than 1% of identified beats were ventricular or supraventricular ectopic in origin, which would classify them as rare. 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
== END ==
PROVIDERS: PCP Family Medicine; Referring Provider Family Medicine; Visit Provider Family Medicine
DX: R00.0 Tachycardia, unspecified (principal)
CPT/HCPCS: 93246; 93248

== ENCOUNTER → 2022-03-22 10:47 | Outpatient (CLI) | payer MEDICARE, BC, SELFPAY ==
[2022-03-22 11:39] LABS: BUN Creatinine Ratio 18.7 (6-22); Blood Urea Nitrogen 17 mg/dL (7-17); Calcium 9.3 mg/dL (8.4-10.2); Carbon Dioxide 28 mmol/L (22-32); Chloride 105 mmol/L (98-107); Estimated Glomerular Filt Rate > 60 mL/min (>60); Glucose 98 mg/dL (80-110); HEMOLYSIS < 15 (0-50); Potassium 4.2 mmol/L (3.4-5.1); Sodium 139 mmol/L (137-145)
[2022-03-22 12:45] LABS: TSH w/ Reflex to FT4 0.68 uIU/mL (0.47-4.68)
--- NOTE | 2022-03-22 13:15 | DI.MG.S_ITS ---
BILATERAL DIGITAL SCREENING MAMMOGRAM 3D/2D WITH CAD: 03/22/2022 CLINICAL: Routine screening. Personal history of right breast cancer. Comparison is made to exams dated: 02/20/2021 mammogram, 02/18/2020 mammogram, and 01/19/2019 mammogram - [facility]. There are scattered fibroglandular elements in both breasts. Current study was also evaluated with a Computer Aided Detection (CAD) system. There are benign post operative findings in the right breast. No significant masses, calcifications, or other findings are seen in either breast. There has been no significant interval change. IMPRESSION: BENIGN There is no mammographic evidence of malignancy. A 1 year screening mammogram is recommended. This exam was interpreted at Station ID: [id number]. NOTE: For mammograms, a report in lay terms will be sent to the patient. Approximately 15% of breast malignancies will not be visualized mammographically. In the management of a palpable breast mass, a negative mammogram must not discourage biopsy of a clinically suspicious lesion. Electronically Signed By: Mike Torrez M.D., jr/olivia:03/22/2022 14:02:45 copy to: IAIN FIGUEROA letter sent: Normal Exam ACR BI-RADS Category 2: Benign Finding(s) 3342F
[2022-03-23 15:25] LABS: Ionized Calcium 5.2 mg/dL (4.5-5.6)
== END ==
PROVIDERS: Pediatrics; PCP Family Medicine; Referring Provider Internal Medicine Hematology & Oncology; Visit Provider Internal Medicine Hematology & Oncology
DX: E03.9 Hypothyroidism, unspecified (principal); Z12.31 Encounter for screening mammogram for malignant neoplasm of breast; Z85.3 Personal history of malignant neoplasm of breast; F32.A Depression, unspecified; I10 Essential (primary) hypertension; Z86.39 Personal history of other endocrine, nutritional and metabolic disease
CPT/HCPCS: 36415; 77063; 77067; 80048; 82330; 84443

== ENCOUNTER → 2022-09-17 06:49 | Outpatient (CLI) | payer MEDICARE, BC, SELFPAY ==
[2022-09-17 08:36] LABS: Alanine Aminotransferase 23 IU/L (<35); Albumin Globulin Ratio 1.2 (1.0-2.8); Alkaline Phosphatase 90 U/L (38-126); Aspartate Aminotransferase 27 IU/L (14-36); BUN Creatinine Ratio 23.3 (6-22); Bilirubin Total 0.5 mg/dL (0.2-1.3); Blood Urea Nitrogen 20 mg/dL (7-17); Calcium 9.4 mg/dL (8.4-10.2); Carbon Dioxide 30 mmol/L (22-32); Chloride 102 mmol/L (98-107); Cholesterol 246 mg/dL (140-199); Estimated Glomerular Filt Rate > 60 mL/min (>60); Globulin 3.4 g/dL (1.7-4.1); Glucose 93 mg/dL (80-110); HDL Cholesterol 77 mg/dL (40-60); HEMOLYSIS < 15 (0-50); LDL Cholesterol Calculated 157 mg/dL (<100); Potassium 4.4 mmol/L (3.4-5.1); Sodium 137 mmol/L (137-145); Total Protein 7.4 g/dL (6.3-8.2); Triglycerides 60 mg/dL (35-150)
[2022-09-17 08:51] LABS: Free T4, Direct Thyroxine 1.26 ng/dL (0.78-2.19); Vitamin D 25 Hydroxy (D3) 18.7 ng/mL (30.0-100.0)
[2022-09-17 09:05] LABS: Thyroid Stimulating Hormone 1.33 uIU/mL (0.47-4.68)
== END ==
PROVIDERS: Family Provider Family Medicine; PCP Family Medicine; Referring Provider Family Medicine; Visit Provider Family Medicine
DX: E55.9 Vitamin D deficiency, unspecified; E03.9 Hypothyroidism, unspecified; E06.3 Autoimmune thyroiditis; I10 Essential (primary) hypertension
CPT/HCPCS: 36415; 80053; 80061; 82306; 84439; 84443

== ENCOUNTER 2022-10-23 09:45 | Outpatient (RCR) | payer MEDICARE, BC, SELFPAY ==
--- NOTE | 2022-08-07 16:08 | PT.OIE ---
Current Diagnoses Pain in left knee (08/07/22) Unspecified abnormalities of gait and mobility (08/07/22) Strain of unspecified muscle(s) and tendon(s) at lower leg level, unspecified leg, initial encounter (08/07/22) Past Medical History (Last Updated 03/22/22 @ 10:43 by Alex Luther MD) Benign familial tremor (2004) Chicken pox (1956) Chronic back pain (2007) Elevated cholesterol Amaury's thyroiditis (2012) Hemorrhoids (1999) History of hypercalcemia Hypertension (2004) Hypothyroid Invasive ductal carcinoma of right breast, stage 1 Measles (1957) Mumps (1955) Obstructive sleep apnea (2012) Perianal fissure Postmenopausal Rubella (1956) Spinal stenosis Uterine polyp (2011) Past Surgical History (Last Reviewed 12/21/21 @ 10:57 by Radha Gerber MD) Anesthesia History of episiotomy (1973) Perianal fistula (1987) Status post cataract extraction of both eyes with insertion of intraocular lens Status post right breast lumpectomy (~05/2018) Visit Care Team Role Provider Type Jada Chauhan DO Family Provider Physician Primary Care Provider Specialty: Medical Address: [address] [place] [address], [facility] Email: [email or web address] Monisha Aldana DO Attending Provider Physician Referring Provider Specialty: Family Practice Address: [address] [place] [address], [id number] Phone: Fax: Email: [email or web address] [facility] Initial Evaluation PT-OP-A Visit Information Start: 08/06/22 16:01 Freq: Status: Active Protocol: Document 08/07/22 09:48 AMB (Rec: 08/07/22 09:59 AMB [id number]) Out-Patient Physical Therapy Visit Information Visit Information Visit Type Initial Evaluation Visit Start Time 09:45 Visit Stop Time 10:30 Total Visit Minutes 45 Visit Number 1 PT-OP-B Current Condition Start: 08/06/22 16:01 Freq: Status: Active Protocol: Document 08/07/22 09:48 AMB (Rec: 08/07/22 09:59 AMB [id number]) Current Condition History of Current Condition Onset Date 3-4 weeks Current Complaints L knee pain History of Current Condition L knee is painful and ibuprofen is helpful. Hiking on a - going downhill on [address] with trekking pole started the pain, denies any falls, specific even on the hike. On the inside of the L knee feels hot, twisting is painful, like walking in the kitchen. At rest the knee feels ok, walking is the worst. Does have a cane at home. Does have stairs but doesn't have to use them. 2 DIANA without a rail, currently step to to go up/down stairs. Main form of exercises is walking/hiking. Treatment Goals Patient/Caregiver Goals Return to hiking Personal Factors Other Personal Factors That May Effect Hx hypothyroid, depression, Therapy/Recovery hypertesnion, back pain PT-OP-C Subjective Start: 08/06/22 16:01 Freq: Status: Active Protocol: Document 08/07/22 09:45 AMB (Rec: 08/07/22 15:49 AMB [id number]) Patient Questionnaires Lower Extremity Functional Scale LEFS Score 43 LEFS Impairment 20 to 39% Impaired (Score 48- 62) PT-OP-G Mobility & Gait Start: 08/06/22 16:01 Freq: Status: Active Protocol: Document 08/07/22 09:45 AMB (Rec: 08/07/22 13:44 AMB [id number]) OP Gait Assessment Comments Gait Comments Antalgic gait pattern with WBOS, reduced trunk rotation. Pt does not attend with AD. PT-OP-J Posture/Palpation/Skin Start: 08/06/22 16:01 Freq: Status: Active Protocol: Document 08/07/22 09:45 AMB (Rec: 08/07/22 13:44 AMB [id number]) Palpation Assessment Location One Palpation Location Medial L knee Palpation Details Edema at popliteal fossa, tenderness over medial knee PT-OP-K Range of Motion Start: 08/06/22 16:01 Freq: Status: Active Protocol: Document 08/07/22 09:45 AMB (Rec: 08/07/22 13:44 AMB [id number]) Knee Goniometric Range of Motion Knee Right Flexion Active (degrees) 120 Extension Active (degrees) 0 Left Flexion Active (degrees) 123 Extension Active (degrees) 0 PT-OP-L Special Tests Start: 08/06/22 16:01 Freq: Status: Active Protocol: Document 08/07/22 09:45 AMB (Rec: 08/07/22 13:44 AMB [id number]) Special Tests Knee Special Tests Apley's Compression Comments pt feels a sensation on medial but no click or outright pain. Varus- 25 Degrees Test Results - Patellar Grind Test Test Results - Valgus- 25 Degrees Test Results - Posterior Draw Test Results - Anterior Draw Test Results - PT-OP-M Strength Start: 08/06/22 16:01 Freq: Status: Active Protocol: Document 08/07/22 09:45 AMB (Rec: 08/07/22 15:49 AMB [id number]) Hip Strength Hip Manual Muscle Testing Right Flexion (L2) 4+ Good+ Extension (S1) 4+ Good+ Abduction 4+ Good+ Left Flexion (L2) 4+ Good+ Extension (S1) 4+ Good+ Abduction 4+ Good+ Knee Strength Knee Manual Muscle Testing Right Flexion (S2) 4+ Good+ Extension (L3) 4+ Good+ Left Flexion (S2) 4+ Good+ Extension (L3) 4 Good PT-OP-Q Treatments Start: 08/06/22 16:01 Freq: Status: Active Protocol: Document 08/07/22 09:45 AMB (Rec: 08/07/22 13:44 AMB [id number]) Therapeutic Exercises Supine Exercises bridges Side left Reps/Minutes 2x10 SLR Side left Reps/Minutes 2x10 Sidelying Exercises hip abduction Side left Reps/Minutes 2x10 Manual Therapy Treatment Taping 1 Type of Tape Kinesio Tape Comments 3Ys for patellar/medial knee support PT-OP-T Assessment and Plan Start: 08/06/22 16:01 Freq: Status: Active Protocol: Document 08/07/22 09:45 AMB (Rec: 08/07/22 16:03 AMB [id number]) Physical Therapy Assessment Rehab Potential Rehabilitation Potential Good Impairments Impairments Functional Activities,Gait, Pain,Soft Tissue Mobility, Strength Goals Two Impairment HEP Short Term Goal (STG) Bing will be independent with a HEP for knee and hip strengthening. STG Duration 5 weeks One Impairment Pain Short Term Goal (STG) Bing will ascend her two steps to enter her home with an alternating gait pattern and without an increase in baseline pain. STG Duration 5 weeks Caretaker Grounds Goal (LTG) Bing will walk for 1 mile with pain of 1/10 or less. LTG Duration 10 weeks Assessment Summary Assessment Bing attends physical therapy with medial L knee pain s/p hiking downhill 1 month ago. She continues to need to use ibuprofen to manage swelling and pain. No specific sx of popping locking clicking, differential diagnosis to include MCL vs meniscus involvement, but fortunately no patrice instability. Encouraged pt to continue with icing for swelling management , start with stabilization with exercise and taping, to progressively strengthen and manage swelling so that she can return to hiking/walking without pain. Physical Therapy Plan Frequency and Duration Frequency of Treatment 2x/Week Duration of treatment (weeks) 10 Plan of Care Start Date 08/07/22 Plan of Care End Date 10/16/22 Therapeutic Interventions Therapeutic Interventions Aquatic Therapy,Balance Training,Gait Training,Home Exercise Program,Joint Mobilizations,Manual Therapy, Neuromuscular Re-education, Self-Care/Home Management, Therapeutic Activities, Therapeutic Exercises Modalities Cold Pack/Ice Massage,Electric Stimulation,Hot Packs Next Visit Focus/Plan Next Note Type Treatment Note Next Visit Plan Review HEP: SLR, abd, bridge. Was K tape helpful? Progress weightbearing.
--- NOTE | 2022-08-07 16:10 | PT.OPPOC ---
Physical, Occupational & Speech Therapy At [facility] Current Diagnoses Pain in left knee (08/07/22) Unspecified abnormalities of gait and mobility (08/07/22) Strain of unspecified muscle(s) and tendon(s) at lower leg level, unspecified leg, initial encounter (08/07/22) Visit Care Team Role Provider Type Jada Chauhan DO Family Provider Physician Primary Care Provider Specialty: Medical Address: [address] [place] [address], [address], [place], [address] Email: [email or web address] Monisha Aldana DO Attending Provider Physician Referring Provider Specialty: Family Practice Address: [address] [place] [address], [place] [address], [place], [address] Phone: Fax: Email: [email or web address] Plan Of Care PT-OP-T Assessment and Plan Start: 08/06/22 16:01 Freq: Status: Active Protocol: Document 08/07/22 09:45 AMB (Rec: 08/07/22 16:03 AMB [id number]) Physical Therapy Assessment Rehab Potential Rehabilitation Potential Good Impairments Impairments Functional Activities,Gait, Pain,Soft Tissue Mobility, Strength Goals Two Impairment HEP Short Term Goal (STG) Bing will be independent with a HEP for knee and hip strengthening. STG Duration 5 weeks One Impairment Pain Short Term Goal (STG) Bing will ascend her two steps to enter her home with an alternating gait pattern and without an increase in baseline pain. STG Duration 5 weeks Assistant Federal Public Defender Goal (LTG) Bing will walk for 1 mile with pain of 1/10 or less. LTG Duration 10 weeks Assessment Summary Assessment Bing attends physical therapy with medial L knee pain s/p hiking downhill 1 month ago. She continues to need to use ibuprofen to manage swelling and pain. No specific sx of popping locking clicking, differential diagnosis to include MCL vs meniscus involvement, but fortunately no patrice instability. Encouraged pt to continue with icing for swelling management , start with stabilization with exercise and taping, to progressively strengthen and manage swelling so that she can return to hiking/walking without pain. Physical Therapy Plan Frequency and Duration Frequency of Treatment 2x/Week Duration of treatment (weeks) 10 Plan of Care Start Date 08/07/22 Plan of Care End Date 10/16/22 Therapeutic Interventions Therapeutic Interventions Aquatic Therapy,Balance Training,Gait Training,Home Exercise Program,Joint Mobilizations,Manual Therapy, Neuromuscular Re-education, Self-Care/Home Management, Therapeutic Activities, Therapeutic Exercises Modalities Cold Pack/Ice Massage,Electric Stimulation,Hot Packs Next Visit Focus/Plan Next Note Type Treatment Note Next Visit Plan Review HEP: SLR, abd, bridge. Was K tape helpful? Progress weightbearing. Plan of Care Dates Plan of Care Start Date 08/07/22 Plan of Care End Date 10/16/22 Electronically Signed by: Roxanne Walton, PT 08/07/22 8483 If you are in agreement with this Plan of Care, please return a signed and dated copy. I have reviewed this Plan of Care and certify that the skilled therapy services above are required to meet the patient?s needs. Physician Signature Date Printed Name and Credentials Clinical Instructor Signature Printed Name and Credentials
--- NOTE | 2022-08-14 16:00 | PT.OTN ---
Current Diagnoses Pain in left knee (08/14/22) Unspecified abnormalities of gait and mobility (08/14/22) Strain of unspecified muscle(s) and tendon(s) at lower leg level, unspecified leg, initial encounter (08/14/22) Physical Therapy Treatment Note PT-OP-A Visit Information Start: 08/06/22 16:01 Freq: Status: Active Protocol: Document 08/14/22 13:47 AMB (Rec: 08/14/22 14:38 AMB [id number]) Out-Patient Physical Therapy Visit Information Visit Information Visit Type Treatment Note Visit Start Time 13:45 Visit Stop Time 14:30 Total Visit Minutes 45 Visit Number 2 PT-OP-B Current Condition Start: 08/06/22 16:01 Freq: Status: Active Protocol: Document 08/07/22 09:48 AMB (Rec: 08/07/22 09:59 AMB [id number]) Current Condition History of Current Condition Onset Date 3-4 weeks Current Complaints L knee pain History of Current Condition L knee is painful and ibuprofen is helpful. Hiking on a - going downhill on [facility] with trekking pole started the pain, denies any falls, specific even on the hike. On the inside of the L knee feels hot, twisting is painful, like walking in the kitchen. At rest the knee feels ok, walking is the worst. Does have a cane at home. Does have stairs but doesn't have to use them. 2 DIANA without a rail, currently step to to go up/down stairs. Main form of exercises is walking/hiking. Treatment Goals Patient/Caregiver Goals Return to hiking Personal Factors Other Personal Factors That May Effect Hx hypothyroid, depression, Therapy/Recovery hypertesnion, back pain PT-OP-C Subjective Start: 08/06/22 16:01 Freq: Status: Active Protocol: Document 08/14/22 13:47 AMB (Rec: 08/14/22 14:38 AMB [id number]) OP-PT Subjective Patient Comments Patient Comments Pt is feeling better, liked the tape, off the ibuprofen. PT-OP-G Mobility & Gait Start: 08/06/22 16:01 Freq: Status: Active Protocol: Document 08/07/22 09:45 AMB (Rec: 08/07/22 13:44 AMB [id number]) OP Gait Assessment Comments Gait Comments Antalgic gait pattern with WBOS, reduced trunk rotation. Pt does not attend with AD. PT-OP-J Posture/Palpation/Skin Start: 08/06/22 16:01 Freq: Status: Active Protocol: Document 08/07/22 09:45 AMB (Rec: 08/07/22 13:44 AMB [id number]) Palpation Assessment Location One Palpation Location Medial L knee Palpation Details Edema at popliteal fossa, tenderness over medial knee PT-OP-K Range of Motion Start: 08/06/22 16:01 Freq: Status: Active Protocol: Document 08/07/22 09:45 AMB (Rec: 08/07/22 13:44 AMB [id number]) Knee Goniometric Range of Motion Knee Right Flexion Active (degrees) 120 Extension Active (degrees) 0 Left Flexion Active (degrees) 123 Extension Active (degrees) 0 PT-OP-L Special Tests Start: 08/06/22 16:01 Freq: Status: Active Protocol: Document 08/07/22 09:45 AMB (Rec: 08/07/22 13:44 AMB [id number]) Special Tests Knee Special Tests Apley's Compression Comments pt feels a sensation on medial but no click or outright pain. Varus- 25 Degrees Test Results - Patellar Grind Test Test Results - Valgus- 25 Degrees Test Results - Posterior Draw Test Results - Anterior Draw Test Results - PT-OP-M Strength Start: 08/06/22 16:01 Freq: Status: Active Protocol: Document 08/07/22 09:45 AMB (Rec: 08/07/22 15:49 AMB [id number]) Hip Strength Hip Manual Muscle Testing Right Flexion (L2) 4+ Good+ Extension (S1) 4+ Good+ Abduction 4+ Good+ Left Flexion (L2) 4+ Good+ Extension (S1) 4+ Good+ Abduction 4+ Good+ Knee Strength Knee Manual Muscle Testing Right Flexion (S2) 4+ Good+ Extension (L3) 4+ Good+ Left Flexion (S2) 4+ Good+ Extension (L3) 4 Good PT-OP-Q Treatments Start: 08/06/22 16:01 Freq: Status: Active Protocol: Document 08/14/22 13:45 AMB (Rec: 08/15/22 11:35 AMB [id number]) Cardio Equipment Recumbent Bicycle Duration (Minutes) 5 Resistance 5 Seat Position 2 Gym Equipment Shuttle Recovery Bilateral Squats Resistance 50 Shuttle Recovery Platform Stable Reps/Time 2x10 Therapeutic Exercises Supine Exercises SLR Side left Reps/Minutes 2x10 Sitting Exercises mini squats Reps/Minutes 2x10 Comments cues for knees behind toes Standing Exercises calf stretch Standing Exercise Name on JOSE ANTONIO Reps/Minutes 30x2 hamstring stretch Standing Exercise Name on stair Reps/Minutes 30x2 Manual Therapy Treatment Taping 1 Type of Tape Kinesio Tape Comments 3Ys for patellar/medial knee support Neuro Re-Education Treatment Balance Activities blue foam Comments NBOS PT-OP-T Assessment and Plan Start: 08/06/22 16:01 Freq: Status: Active Protocol: Document 08/14/22 13:45 AMB (Rec: 08/15/22 11:35 AMB [id number]) Physical Therapy Assessment Goals Two Impairment HEP Short Term Goal (STG) Bing will be independent with a HEP for knee and hip strengthening. STG Duration 5 weeks One Impairment Pain Short Term Goal (STG) Bing will ascend her two steps to enter her home with an alternating gait pattern and without an increase in baseline pain. STG Duration 5 weeks Machine Inspector Goal (LTG) Bing will walk for 1 mile with pain of 1/10 or less. LTG Duration 10 weeks Assessment Summary Assessment Bing is improving, she is no longer needing to take iburpofen, but has not yet returned to walking long distances. Did encourage her in starting to walk over smooth terrain only, short distances for now, but to avoid hikes, uneven terrain for right now. Physical Therapy Plan Frequency and Duration Frequency of Treatment 2x/Week Duration of treatment (weeks) 10 Plan of Care Start Date 08/07/22 Plan of Care End Date 10/16/22 Therapeutic Interventions Therapeutic Interventions Aquatic Therapy,Balance Training,Gait Training,Home Exercise Program,Joint Mobilizations,Manual Therapy, Neuromuscular Re-education, Self-Care/Home Management, Therapeutic Activities, Therapeutic Exercises Modalities Cold Pack/Ice Massage,Electric Stimulation,Hot Packs Next Visit Focus/Plan Next Note Type Treatment Note Next Visit Plan Review HEP: Progress squats, consider multidirectional mini lunges if pt sx continue to improve. Eventually progressing into uneven terrain.
--- NOTE | 2022-08-16 15:26 | PT.OTN ---
Current Diagnoses Pain in left knee (08/16/22) Unspecified abnormalities of gait and mobility (08/16/22) Strain of unspecified muscle(s) and tendon(s) at lower leg level, unspecified leg, initial encounter (08/16/22) Physical Therapy Treatment Note PT-OP-A Visit Information Start: 08/06/22 16:01 Freq: Status: Active Protocol: Document 08/16/22 14:30 AMB (Rec: 08/16/22 15:26 AMB [id number]) Out-Patient Physical Therapy Visit Information Visit Information Visit Type Treatment Note Visit Start Time 13:45 Visit Stop Time 14:30 Total Visit Minutes 45 Visit Number 3 PT-OP-B Current Condition Start: 08/06/22 16:01 Freq: Status: Active Protocol: Document 08/07/22 09:48 AMB (Rec: 08/07/22 09:59 AMB [id number]) Current Condition History of Current Condition Onset Date 3-4 weeks Current Complaints L knee pain History of Current Condition L knee is painful and ibuprofen is helpful. Hiking on a - going downhill on [facility] with trekking pole started the pain, denies any falls, specific even on the hike. On the inside of the L knee feels hot, twisting is painful, like walking in the kitchen. At rest the knee feels ok, walking is the worst. Does have a cane at home. Does have stairs but doesn't have to use them. 2 DIANA without a rail, currently step to to go up/down stairs. Main form of exercises is walking/hiking. Treatment Goals Patient/Caregiver Goals Return to hiking Personal Factors Other Personal Factors That May Effect Hx hypothyroid, depression, Therapy/Recovery hypertesnion, back pain PT-OP-C Subjective Start: 08/06/22 16:01 Freq: Status: Active Protocol: Document 08/16/22 14:30 AMB (Rec: 08/16/22 15:26 AMB [id number]) OP-PT Subjective Patient Comments Patient Comments Walked 3 sides of the nemo yesterday and knee was feeling it a little bit but then did feel fine after that, didn't have to take ibuprofen. PT-OP-G Mobility & Gait Start: 08/06/22 16:01 Freq: Status: Active Protocol: Document 08/07/22 09:45 AMB (Rec: 08/07/22 13:44 AMB [id number]) OP Gait Assessment Comments Gait Comments Antalgic gait pattern with WBOS, reduced trunk rotation. Pt does not attend with AD. PT-OP-J Posture/Palpation/Skin Start: 08/06/22 16:01 Freq: Status: Active Protocol: Document 08/07/22 09:45 AMB (Rec: 08/07/22 13:44 AMB [id number]) Palpation Assessment Location One Palpation Location Medial L knee Palpation Details Edema at popliteal fossa, tenderness over medial knee PT-OP-K Range of Motion Start: 08/06/22 16:01 Freq: Status: Active Protocol: Document 08/07/22 09:45 AMB (Rec: 08/07/22 13:44 AMB [id number]) Knee Goniometric Range of Motion Knee Right Flexion Active (degrees) 120 Extension Active (degrees) 0 Left Flexion Active (degrees) 123 Extension Active (degrees) 0 PT-OP-L Special Tests Start: 08/06/22 16:01 Freq: Status: Active Protocol: Document 08/07/22 09:45 AMB (Rec: 08/07/22 13:44 AMB [id number]) Special Tests Knee Special Tests Apley's Compression Comments pt feels a sensation on medial but no click or outright pain. Varus- 25 Degrees Test Results - Patellar Grind Test Test Results - Valgus- 25 Degrees Test Results - Posterior Draw Test Results - Anterior Draw Test Results - PT-OP-M Strength Start: 08/06/22 16:01 Freq: Status: Active Protocol: Document 08/07/22 09:45 AMB (Rec: 08/07/22 15:49 AMB [id number]) Hip Strength Hip Manual Muscle Testing Right Flexion (L2) 4+ Good+ Extension (S1) 4+ Good+ Abduction 4+ Good+ Left Flexion (L2) 4+ Good+ Extension (S1) 4+ Good+ Abduction 4+ Good+ Knee Strength Knee Manual Muscle Testing Right Flexion (S2) 4+ Good+ Extension (L3) 4+ Good+ Left Flexion (S2) 4+ Good+ Extension (L3) 4 Good PT-OP-Q Treatments Start: 08/06/22 16:01 Freq: Status: Active Protocol: Document 08/16/22 14:30 AMB (Rec: 08/16/22 15:26 AMB [id number]) Cardio Equipment Recumbent Bicycle Duration (Minutes) 5 Resistance 5 Seat Position 2 Therapeutic Exercises Sitting Exercises mini squats Reps/Minutes 2x10 Comments cues for knees behind toes Standing Exercises mini lunge Standing Exercise Name fwd, lateral, diagonal backwards Reps/Minutes 2x10 Comments HEP calf stretch Standing Exercise Name on JOSE ANTONIO Reps/Minutes 30x2 hamstring stretch Standing Exercise Name on stair Reps/Minutes 30x2 PT-OP-T Assessment and Plan Start: 08/06/22 16:01 Freq: Status: Active Protocol: Document 08/16/22 14:30 AMB (Rec: 08/16/22 15:26 AMB [id number]) Physical Therapy Assessment Goals Two Impairment HEP Short Term Goal (STG) Bing will be independent with a HEP for knee and hip strengthening. STG Duration 5 weeks One Impairment Pain Short Term Goal (STG) Bing will ascend her two steps to enter her home with an alternating gait pattern and without an increase in baseline pain. STG Duration 5 weeks Vp Purchasing Goal (LTG) Bing will walk for 1 mile with pain of 1/10 or less. LTG Duration 10 weeks Assessment Summary Assessment Bing is improving, encouraged to not overdo and give it a day in between walks. HEP added multi directional mini lunges and d/saad SLR as it was too easy. Physical Therapy Plan Frequency and Duration Frequency of Treatment 2x/Week Duration of treatment (weeks) 10 Plan of Care Start Date 08/07/22 Plan of Care End Date 10/16/22 Therapeutic Interventions Therapeutic Interventions Aquatic Therapy,Balance Training,Gait Training,Home Exercise Program,Joint Mobilizations,Manual Therapy, Neuromuscular Re-education, Self-Care/Home Management, Therapeutic Activities, Therapeutic Exercises Modalities Cold Pack/Ice Massage,Electric Stimulation,Hot Packs Next Visit Focus/Plan Next Note Type Treatment Note Next Visit Plan Review HEP: Progress squats, consider multidirectional mini lunges if pt sx continue to improve. Eventually progressing into uneven terrain.
--- NOTE | 2022-08-21 16:07 | PT.OTN ---
Current Diagnoses Pain in left knee (08/21/22) Unspecified abnormalities of gait and mobility (08/21/22) Strain of unspecified muscle(s) and tendon(s) at lower leg level, unspecified leg, initial encounter (08/21/22) Physical Therapy Treatment Note PT-OP-A Visit Information Start: 08/06/22 16:01 Freq: Status: Active Protocol: Document 08/21/22 13:54 AMB (Rec: 08/21/22 14:37 AMB [id number]) Out-Patient Physical Therapy Visit Information Visit Information Visit Type Treatment Note Visit Start Time 13:45 Visit Stop Time 14:30 Total Visit Minutes 45 Visit Number 4 PT-OP-B Current Condition Start: 08/06/22 16:01 Freq: Status: Active Protocol: Document 08/07/22 09:48 AMB (Rec: 08/07/22 09:59 AMB [id number]) Current Condition History of Current Condition Onset Date 3-4 weeks Current Complaints L knee pain History of Current Condition L knee is painful and ibuprofen is helpful. Hiking on a - going downhill on [facility] with trekking pole started the pain, denies any falls, specific even on the hike. On the inside of the L knee feels hot, twisting is painful, like walking in the kitchen. At rest the knee feels ok, walking is the worst. Does have a cane at home. Does have stairs but doesn't have to use them. 2 DIANA without a rail, currently step to to go up/down stairs. Main form of exercises is walking/hiking. Treatment Goals Patient/Caregiver Goals Return to hiking Personal Factors Other Personal Factors That May Effect Hx hypothyroid, depression, Therapy/Recovery hypertesnion, back pain PT-OP-C Subjective Start: 08/06/22 16:01 Freq: Status: Active Protocol: Document 08/21/22 13:54 AMB (Rec: 08/21/22 14:37 AMB [id number]) OP-PT Subjective Patient Comments Patient Comments Walking every day, walking 3/4 miles flat. That is going ok , no need for more ibuprofen. PT-OP-G Mobility & Gait Start: 08/06/22 16:01 Freq: Status: Active Protocol: Document 08/07/22 09:45 AMB (Rec: 08/07/22 13:44 AMB [id number]) OP Gait Assessment Comments Gait Comments Antalgic gait pattern with WBOS, reduced trunk rotation. Pt does not attend with AD. PT-OP-J Posture/Palpation/Skin Start: 08/06/22 16:01 Freq: Status: Active Protocol: Document 08/07/22 09:45 AMB (Rec: 08/07/22 13:44 AMB [id number]) Palpation Assessment Location One Palpation Location Medial L knee Palpation Details Edema at popliteal fossa, tenderness over medial knee PT-OP-K Range of Motion Start: 08/06/22 16:01 Freq: Status: Active Protocol: Document 08/07/22 09:45 AMB (Rec: 08/07/22 13:44 AMB [id number]) Knee Goniometric Range of Motion Knee Right Flexion Active (degrees) 120 Extension Active (degrees) 0 Left Flexion Active (degrees) 123 Extension Active (degrees) 0 PT-OP-L Special Tests Start: 08/06/22 16:01 Freq: Status: Active Protocol: Document 08/07/22 09:45 AMB (Rec: 08/07/22 13:44 AMB [id number]) Special Tests Knee Special Tests Apley's Compression Comments pt feels a sensation on medial but no click or outright pain. Varus- 25 Degrees Test Results - Patellar Grind Test Test Results - Valgus- 25 Degrees Test Results - Posterior Draw Test Results - Anterior Draw Test Results - PT-OP-M Strength Start: 08/06/22 16:01 Freq: Status: Active Protocol: Document 08/07/22 09:45 AMB (Rec: 08/07/22 15:49 AMB [id number]) Hip Strength Hip Manual Muscle Testing Right Flexion (L2) 4+ Good+ Extension (S1) 4+ Good+ Abduction 4+ Good+ Left Flexion (L2) 4+ Good+ Extension (S1) 4+ Good+ Abduction 4+ Good+ Knee Strength Knee Manual Muscle Testing Right Flexion (S2) 4+ Good+ Extension (L3) 4+ Good+ Left Flexion (S2) 4+ Good+ Extension (L3) 4 Good PT-OP-Q Treatments Start: 08/06/22 16:01 Freq: Status: Active Protocol: Document 08/21/22 13:54 AMB (Rec: 08/21/22 14:37 AMB [id number]) Cardio Equipment Recumbent Bicycle Duration (Minutes) 7 Resistance 6 Seat Position 2 Gym Equipment Shuttle Recovery Unilateral Squats Resistance 37 Shuttle Recovery Platform Stable Bilateral Squats Resistance 50 Shuttle Recovery Platform Stable,Unstable Reps/Time 2x10 Therapeutic Exercises Standing Exercises mini lunge Standing Exercise Name fwd, lateral, diagonal backwards Reps/Minutes 2x10 Comments added blue foam calf stretch Standing Exercise Name on JOSE ANTONIO Reps/Minutes 30x2 hamstring stretch Standing Exercise Name on stair Reps/Minutes 30x2 Manual Therapy Treatment Taping 1 Type of Tape Kinesio Tape Comments 3Ys for patellar/medial knee support PT-OP-T Assessment and Plan Start: 08/06/22 16:01 Freq: Status: Active Protocol: Document 08/21/22 13:54 AMB (Rec: 08/21/22 14:37 AMB [id number]) Physical Therapy Assessment Goals Two Impairment HEP Short Term Goal (STG) Bing will be independent with a HEP for knee and hip strengthening. STG Duration 5 weeks One Impairment Pain Short Term Goal (STG) Bing will ascend her two steps to enter her home with an alternating gait pattern and without an increase in baseline pain. STG Duration 5 weeks Custodial Goal (LTG) Bing will walk for 1 mile with pain of 1/10 or less. LTG Duration 10 weeks Assessment Summary Assessment Bing is continuing to do well , does continue to like the tape. Tightness in IT band and calf. Encouraged rolling on IT band. Pt to continue to progress stabilization, progress walking. Physical Therapy Plan Frequency and Duration Frequency of Treatment 2x/Week Duration of treatment (weeks) 10 Plan of Care Start Date 08/07/22 Plan of Care End Date 10/16/22 Therapeutic Interventions Therapeutic Interventions Aquatic Therapy,Balance Training,Gait Training,Home Exercise Program,Joint Mobilizations,Manual Therapy, Neuromuscular Re-education, Self-Care/Home Management, Therapeutic Activities, Therapeutic Exercises Modalities Cold Pack/Ice Massage,Electric Stimulation,Hot Packs Next Visit Focus/Plan Next Note Type Treatment Note Next Visit Plan Review HEP: Progress squats, consider multidirectional mini lunges if pt sx continue to improve. Eventually progressing into uneven terrain.
--- NOTE | 2022-08-28 11:25 | PT.OTN ---
Current Diagnoses Pain in left knee (08/28/22) Unspecified abnormalities of gait and mobility (08/28/22) Strain of unspecified muscle(s) and tendon(s) at lower leg level, unspecified leg, initial encounter (08/28/22) Physical Therapy Treatment Note PT-OP-A Visit Information Start: 08/06/22 16:01 Freq: Status: Active Protocol: Document 08/28/22 10:35 SP (Rec: 08/28/22 11:34 SP [id number]) Out-Patient Physical Therapy Visit Information Visit Information Visit Type Treatment Note Visit Start Time 10:35 Visit Stop Time 11:25 Total Visit Minutes 50 Visit Number 5 Number of ENGINE REPAIR SUPERVISOR Visits 1 PT-OP-B Current Condition Start: 08/06/22 16:01 Freq: Status: Active Protocol: Document 08/07/22 09:48 AMB (Rec: 08/07/22 09:59 AMB [id number]) Current Condition History of Current Condition Onset Date 3-4 weeks Current Complaints L knee pain History of Current Condition L knee is painful and ibuprofen is helpful. Hiking on a - going [place] on [address] with trekking pole started the pain, denies any falls, specific even on the hike. On the inside of the L knee feels hot, twisting is painful, like walking in the kitchen. At rest the knee feels ok, walking is the worst. Does have a cane at home. Does have stairs but doesn't have to use them. 2 DIANA without a rail, currently step to to go up/down stairs. Main form of exercises is walking/hiking. Treatment Goals Patient/Caregiver Goals Return to hiking Personal Factors Other Personal Factors That May Effect Hx hypothyroid, depression, Therapy/Recovery hypertesnion, back pain PT-OP-C Subjective Start: 08/06/22 16:01 Freq: Status: Active Protocol: Document 08/28/22 10:35 SP (Rec: 08/28/22 11:34 SP [id number]) OP-PT Subjective Patient Comments Patient Comments Pt reports feels like has plateaued in pain level if push her know, not having to take ibuprofen. Can't hike trails due to pain over L medial knee and is her main form of ex wants to get back to. PT-OP-G Mobility & Gait Start: 08/06/22 16:01 Freq: Status: Active Protocol: Document 08/07/22 09:45 AMB (Rec: 08/07/22 13:44 AMB [id number]) OP Gait Assessment Comments Gait Comments Antalgic gait pattern with WBOS, reduced trunk rotation. Pt does not attend with AD. PT-OP-J Posture/Palpation/Skin Start: 08/06/22 16:01 Freq: Status: Active Protocol: Document 08/07/22 09:45 AMB (Rec: 08/07/22 13:44 AMB [id number]) Palpation Assessment Location One Palpation Location Medial L knee Palpation Details Edema at popliteal fossa, tenderness over medial knee PT-OP-K Range of Motion Start: 08/06/22 16:01 Freq: Status: Active Protocol: Document 08/07/22 09:45 AMB (Rec: 08/07/22 13:44 AMB [id number]) Knee Goniometric Range of Motion Knee Right Flexion Active (degrees) 120 Extension Active (degrees) 0 Left Flexion Active (degrees) 123 Extension Active (degrees) 0 PT-OP-L Special Tests Start: 08/06/22 16:01 Freq: Status: Active Protocol: Document 08/07/22 09:45 AMB (Rec: 08/07/22 13:44 AMB [id number]) Special Tests Knee Special Tests Apley's Compression Comments pt feels a sensation on medial but no click or outright pain. Varus- 25 Degrees Test Results - Patellar Grind Test Test Results - Valgus- 25 Degrees Test Results - Posterior Draw Test Results - Anterior Draw Test Results - PT-OP-M Strength Start: 08/06/22 16:01 Freq: Status: Active Protocol: Document 08/07/22 09:45 AMB (Rec: 08/07/22 15:49 AMB [id number]) Hip Strength Hip Manual Muscle Testing Right Flexion (L2) 4+ Good+ Extension (S1) 4+ Good+ Abduction 4+ Good+ Left Flexion (L2) 4+ Good+ Extension (S1) 4+ Good+ Abduction 4+ Good+ Knee Strength Knee Manual Muscle Testing Right Flexion (S2) 4+ Good+ Extension (L3) 4+ Good+ Left Flexion (S2) 4+ Good+ Extension (L3) 4 Good PT-OP-Q Treatments Start: 08/06/22 16:01 Freq: Status: Active Protocol: Document 12/21/22 10:35 SP (Rec: 08/28/22 11:34 SP [id number]) Cardio Equipment Recumbent Bicycle Duration (Minutes) 7 Resistance 6 Seat Position 2 Other 2.71 miles Gym Equipment Shuttle Recovery Unilateral Squats Resistance 37 Shuttle Recovery Platform Stable Reps/Time x20 Bilateral Squats Resistance 50 Shuttle Recovery Platform Stable,Unstable Reps/Time x20 Sport Cord red Exercise Details fwd/lateral: 8 box x10 each LE, 6 step +blue foam Cord/Resistance red Comments cued as needed for core, tall posture for stability, CG-5%A. Therapeutic Exercises Standing Exercises step ups Standing Exercise Name added to HEP: forward up/back down, lateral, mini forward step down Side left Resistance rail support lateral, forward down Equipment Used 6 step f/b/l, little descend forward 1-2 Reps/Minutes x5 reps each assess ok progress at home, end tx. Comments good feedback response Manual Therapy Treatment Taping 1 Body Location L knee Treatment Focus patellar stability and medial tension support Type of Tape Kinesio Tape Comments 1 vertical strip medial knee, 2 Ys for patellar/medial knee support: sup>inferior, inf> superior. *good feedback support post applying on shuttle recovery and rest of tx. Neuro Re-Education Treatment Balance Activities obstacle course Details 6 hurdles, 4>2 oval foam, 2>4 pods Equipment CGA- 5%A Reps/Duration 4 laps Comments improved stability with occasional cues for tall, core facilitation and balance over stance LE before next LE advancement. just foam to easy . PT-OP-T Assessment and Plan Start: 08/06/22 16:01 Freq: Status: Active Protocol: Document 08/28/22 10:35 SP (Rec: 08/28/22 11:34 SP [id number]) Physical Therapy Assessment Goals Two Impairment HEP Short Term Goal (STG) Bing will be independent with a HEP for knee and hip strengthening. STG Duration 5 weeks One Impairment Pain Short Term Goal (STG) Bing will ascend her two steps to enter her home with an alternating gait pattern and without an increase in baseline pain. STG Duration 5 weeks Deputy Director Of Public [employer] Goal (LTG) Bing will walk for 1 mile with pain of 1/10 or less. LTG Duration 10 weeks Assessment Summary Assessment Pt improved stability over uneven surface obstacle course and against resistance uneven step ups with cues for upright posturing with core facilitation to assimulate hiking on trails wants to get back to, LOB x2 5%A for safety , improves with cues.Good tolerance to added step ups to HEP, provide HOs next tx. Add SLS activities next tx. Physical Therapy Plan Frequency and Duration Frequency of Treatment 2x/Week Duration of treatment (weeks) 10 Plan of Care Start Date 08/07/22 Plan of Care End Date 10/16/22 Therapeutic Interventions Therapeutic Interventions Aquatic Therapy,Balance Training,Gait Training,Home Exercise Program,Joint Mobilizations,Manual Therapy, Neuromuscular Re-education, Self-Care/Home Management, Therapeutic Activities, Therapeutic Exercises Modalities Cold Pack/Ice Massage,Electric Stimulation,Hot Packs Next Visit Focus/Plan Next Note Type Treatment Note Next Visit Plan Add SLS activies and continue uneven surface functional strengthening. Review HEP: Progress squats, consider multidirectional mini lunges if pt sx continue to improve.
--- NOTE | 2022-09-10 09:47 | PT.OTN ---
Current Diagnoses Pain in left knee (09/10/22) Unspecified abnormalities of gait and mobility (09/10/22) Strain of unspecified muscle(s) and tendon(s) at lower leg level, unspecified leg, initial encounter (09/10/22) Physical Therapy Treatment Note PT-OP-A Visit Information Start: 08/06/22 16:01 Freq: Status: Active Protocol: Document 09/10/22 09:06 SP (Rec: 09/10/22 09:49 SP [id number]) Out-Patient Physical Therapy Visit Information Visit Information Visit Type Treatment Note Visit Start Time 09:06 Visit Stop Time 09:47 Total Visit Minutes 41 Visit Number 6 Number of LABOR SERVICE REPRESENTATIVE Visits 2 PT-OP-B Current Condition Start: 08/06/22 16:01 Freq: Status: Active Protocol: Document 08/07/22 09:48 AMB (Rec: 08/07/22 09:59 AMB [id number]) Current Condition History of Current Condition Onset Date 3-4 weeks Current Complaints L knee pain History of Current Condition L knee is painful and ibuprofen is helpful. Hiking on a - going downhill on [facility] with trekking pole started the pain, denies any falls, specific even on the hike. On the inside of the L knee feels hot, twisting is painful, like walking in the kitchen. At rest the knee feels ok, walking is the worst. Does have a cane at home. Does have stairs but doesn't have to use them. 2 DIANA without a rail, currently step to to go up/down stairs. Main form of exercises is walking/hiking. Treatment Goals Patient/Caregiver Goals Return to hiking Personal Factors Other Personal Factors That May Effect Hx hypothyroid, depression, Therapy/Recovery hypertesnion, back pain PT-OP-C Subjective Start: 08/06/22 16:01 Freq: Status: Active Protocol: Document 09/10/22 09:06 SP (Rec: 09/10/22 09:49 SP [id number]) OP-PT Subjective Patient Comments Patient Comments Pt [place], [employer] [place] and will [place] before next tx , painfree. PT-OP-G Mobility & Gait Start: 08/06/22 16:01 Freq: Status: Active Protocol: Document 08/07/22 09:45 AMB (Rec: 08/07/22 13:44 AMB [id number]) OP Gait Assessment Comments Gait Comments Antalgic gait pattern with WBOS, reduced trunk rotation. Pt does not attend with AD. PT-OP-J Posture/Palpation/Skin Start: 08/06/22 16:01 Freq: Status: Active Protocol: Document 08/07/22 09:45 AMB (Rec: 08/07/22 13:44 AMB [id number]) Palpation Assessment Location One Palpation Location Medial L knee Palpation Details Edema at popliteal fossa, tenderness over medial knee PT-OP-K Range of Motion Start: 08/06/22 16:01 Freq: Status: Active Protocol: Document 08/07/22 09:45 AMB (Rec: 08/07/22 13:44 AMB [id number]) Knee Goniometric Range of Motion Knee Right Flexion Active (degrees) 120 Extension Active (degrees) 0 Left Flexion Active (degrees) 123 Extension Active (degrees) 0 PT-OP-L Special Tests Start: 08/06/22 16:01 Freq: Status: Active Protocol: Document 08/07/22 09:45 AMB (Rec: 08/07/22 13:44 AMB [id number]) Special Tests Knee Special Tests Apley's Compression Comments pt feels a sensation on medial but no click or outright pain. Varus- 25 Degrees Test Results - Patellar Grind Test Test Results - Valgus- 25 Degrees Test Results - Posterior Draw Test Results - Anterior Draw Test Results - PT-OP-M Strength Start: 08/06/22 16:01 Freq: Status: Active Protocol: Document 08/07/22 09:45 AMB (Rec: 08/07/22 15:49 AMB [id number]) Hip Strength Hip Manual Muscle Testing Right Flexion (L2) 4+ Good+ Extension (S1) 4+ Good+ Abduction 4+ Good+ Left Flexion (L2) 4+ Good+ Extension (S1) 4+ Good+ Abduction 4+ Good+ Knee Strength Knee Manual Muscle Testing Right Flexion (S2) 4+ Good+ Extension (L3) 4+ Good+ Left Flexion (S2) 4+ Good+ Extension (L3) 4 Good PT-OP-Q Treatments Start: 08/06/22 16:01 Freq: Status: Active Protocol: Document 09/10/22 09:06 SP (Rec: 09/10/22 09:49 SP [id number]) Gym Equipment Shuttle Recovery Unilateral Squats Resistance 37# (1 new band) Shuttle Recovery Platform Stable Reps/Time x20 each LE Bilateral Squats Details good eccentric control Resistance 50>75 # (1 new band) Shuttle Recovery Platform Stable,Unstable Reps/Time x15 reps each surface Sport Cord red Exercise Details Fwd/Bwd/Lat 8 box, Fwd/Lat 6 box+ blue foam Cord/Resistance red Reps/Duration x10 reps each direction Comments cued as needed for core, slower pacing control, tall posture for stability, CGA Therapeutic Exercises Standing Exercises band walk Standing Exercise Name lateral- added to HEP Resistance #3 TB Reps/Minutes 20 ft x2 laps Comments cued contact needed, clear trail LE step down Standing Exercise Name initiated in PT- added to HEP Side bilateral Equipment Used 2> 4 step to range tolerant Reps/Minutes x10 Comments cued knee behind/with toes, buttocks back needed for glut/ hip abd fac decline squat Standing Exercise Name initiated in PT- added to HEP Equipment Used JOSE ANTONIO squat to body solid bench (17) Reps/Minutes x13 reps Comments cued hip hinge buttocks back hover seat- then painfree PT-OP-T Assessment and Plan Start: 08/06/22 16:01 Freq: Status: Active Protocol: Document 09/10/22 09:06 SP (Rec: 09/10/22 09:49 SP [id number]) Physical Therapy Assessment Goals Two Impairment HEP Short Term Goal (STG) Bing will be independent with a HEP for knee and hip strengthening. STG Duration 5 weeks One Impairment Pain Short Term Goal (STG) Bing will ascend her two steps to enter her home with an alternating gait pattern and without an increase in baseline pain. 09/10/21: pt stated still having L knee pain descending stairs but little better. STG Duration 5 weeks -progress 09/10/21 Shelter Goal (LTG) Bing will walk for 1 mile with pain of 1/10 or less. 09/10/21: progressing she was able to walk 2.5 miles wa [employer] but didn't ask if needed sit rest. Recheck next tx. LTG Duration 10 weeks -progressing 09/10/21 Assessment Summary Assessment Pt was able to increase resistance tolerance on shutte recovery, added band walk/ eccentric squats and step forward downs to support small range eccentric knee flexion to decrease knee pain descending stairs. Pt had no adverse affects so added to HEP to progress strengthening toward return descend stairs without L knee pain. Physical Therapy Plan Frequency and Duration Frequency of Treatment 2x/Week Duration of treatment (weeks) 10 Plan of Care Start Date 08/07/22 Plan of Care End Date 10/16/22 Therapeutic Interventions Therapeutic Interventions Aquatic Therapy,Balance Training,Gait Training,Home Exercise Program,Joint Mobilizations,Manual Therapy, Neuromuscular Re-education, Self-Care/Home Management, Therapeutic Activities, Therapeutic Exercises Modalities Cold Pack/Ice Massage,Electric Stimulation,Hot Packs Next Visit Focus/Plan Next Note Type Treatment Note Next Visit Plan Recheck added eccentric squat/ fwd step down, band walk added lastx. Review condense HEP. Next tx: Add SLS activies and continue uneven surface functional strengthening. Review HEP: Progress squats, consider multidirectional mini lunges if pt sx continue to improve.
--- NOTE | 2022-09-17 08:15 | PT.OTN ---
Current Diagnoses Pain in left knee (09/17/22) Unspecified abnormalities of gait and mobility (09/17/22) Strain of unspecified muscle(s) and tendon(s) at lower leg level, unspecified leg, initial encounter (09/17/22) Physical Therapy Treatment Note PT-OP-A Visit Information Start: 08/06/22 16:01 Freq: Status: Active Protocol: Document 09/17/22 07:30 SP (Rec: 09/17/22 08:35 SP [id number]) Out-Patient Physical Therapy Visit Information Visit Information Visit Type Treatment Note Visit Start Time 07:30 Visit Stop Time 08:15 Total Visit Minutes 45 Visit Number 7 Number of COACH PROFESSIONAL ATHLETES Visits 3 PT-OP-B Current Condition Start: 08/06/22 16:01 Freq: Status: Active Protocol: Document 08/07/22 09:48 AMB (Rec: 08/07/22 09:59 AMB [id number]) Current Condition History of Current Condition Onset Date 3-4 weeks Current Complaints L knee pain History of Current Condition L knee is painful and ibuprofen is helpful. Hiking on a - going [place] on [facility] with trekking pole started the pain, denies any falls, specific even on the hike. On the inside of the L knee feels hot, twisting is painful, like walking in the kitchen. At rest the knee feels ok, walking is the worst. Does have a cane at home. Does have stairs but doesn't have to use them. 2 DIANA without a rail, currently step to to go up/down stairs. Main form of exercises is walking/hiking. Treatment Goals Patient/Caregiver Goals Return to hiking Personal Factors Other Personal Factors That May Effect Hx hypothyroid, depression, Therapy/Recovery hypertesnion, back pain PT-OP-C Subjective Start: 08/06/22 16:01 Freq: Status: Active Protocol: Document 09/17/22 07:30 SP (Rec: 09/17/22 08:35 SP [id number]) OP-PT Subjective Patient Comments Patient Comments Pt PT-OP-G Mobility & Gait Start: 08/06/22 16:01 Freq: Status: Active Protocol: Document 08/07/22 09:45 AMB (Rec: 08/07/22 13:44 AMB [id number]) OP Gait Assessment Comments Gait Comments Antalgic gait pattern with WBOS, reduced trunk rotation. Pt does not attend with AD. PT-OP-J Posture/Palpation/Skin Start: 08/06/22 16:01 Freq: Status: Active Protocol: Document 08/07/22 09:45 AMB (Rec: 08/07/22 13:44 AMB [id number]) Palpation Assessment Location One Palpation Location Medial L knee Palpation Details Edema at popliteal fossa, tenderness over medial knee PT-OP-K Range of Motion Start: 08/06/22 16:01 Freq: Status: Active Protocol: Document 08/07/22 09:45 AMB (Rec: 08/07/22 13:44 AMB [id number]) Knee Goniometric Range of Motion Knee Right Flexion Active (degrees) 120 Extension Active (degrees) 0 Left Flexion Active (degrees) 123 Extension Active (degrees) 0 PT-OP-L Special Tests Start: 08/06/22 16:01 Freq: Status: Active Protocol: Document 08/07/22 09:45 AMB (Rec: 08/07/22 13:44 AMB [id number]) Special Tests Knee Special Tests Apley's Compression Comments pt feels a sensation on medial but no click or outright pain. Varus- 25 Degrees Test Results - Patellar Grind Test Test Results - Valgus- 25 Degrees Test Results - Posterior Draw Test Results - Anterior Draw Test Results - PT-OP-M Strength Start: 08/06/22 16:01 Freq: Status: Active Protocol: Document 08/07/22 09:45 AMB (Rec: 08/07/22 15:49 AMB [id number]) Hip Strength Hip Manual Muscle Testing Right Flexion (L2) 4+ Good+ Extension (S1) 4+ Good+ Abduction 4+ Good+ Left Flexion (L2) 4+ Good+ Extension (S1) 4+ Good+ Abduction 4+ Good+ Knee Strength Knee Manual Muscle Testing Right Flexion (S2) 4+ Good+ Extension (L3) 4+ Good+ Left Flexion (S2) 4+ Good+ Extension (L3) 4 Good PT-OP-Q Treatments Start: 08/06/22 16:01 Freq: Status: Active Protocol: Document 09/17/22 07:30 SP (Rec: 09/17/22 08:35 SP [id number]) Gym Equipment Shuttle Recovery Unilateral Squats Details L medial knee discomfort today , not better with midquad/glut fac Resistance 37# (1 new band) Shuttle Recovery Platform Stable Reps/Time x20 each LE Bilateral Squats Details good eccentric control Resistance 75#>87 # (1 new band) Shuttle Recovery Platform Stable,Unstable Reps/Time x15 (75#), x15 87#) reps each surface Therapeutic Exercises Sitting Exercises mini squats Sitting Exercise Name mini squat and few eccentric squat taps Equipment Used floor 16 box, chair stand on blue foam Reps/Minutes x10 each Comments cues for knees wide and behind toes Standing Exercises Single leg RDL Standing Exercise Name trialed in PT: good challenge, cued level pelvis Side bilateral Reps/Minutes x8 reps Comments cued chest lift posture, SLS opp bent knee, hip hinge fwd arms tap stool self STMs Standing Exercise Name added to HEP: quad, ADD, HS, calf, ITB Side bilateral Equipment Used rolling pin Reps/Minutes 2 min total Comments good feedback response 4way hip Standing Exercise Name added to HEP Side bilateral Resistance TB #1 loop Equipment Used contact back chair Reps/Minutes x10 Comments cued tall postural alignment over stance LE, light contact slow con/ecc step ups Standing Exercise Name 1. repeated single step up/ back down 2. alternate 3. carry 5# basket altern Side left Resistance rail support lateral, forward down Equipment Used 6 step + blue foam f/b/l Reps/Minutes 10 reps each LE Comments painfree, little unsteady w/ basket no LOB, SBA mini lunge Standing Exercise Name 1. mini walking lunge fwd 2. stationary on foam (not 09/17, next tx continue) Reps/Minutes 10 ft x1 lap Comments cued knee with and behind toes Pablo Manual Therapy Treatment Taping 1 Body Location L knee Treatment Focus patellar stability and medial tension support Type of Tape Kinesio Tape Comments 1 vertical strip medial knee ( distal adductor), 2 Ys for patellar/medial knee support: sup>inferior, inf>superior. *good feedback support post applying on shuttle recovery painfree. PT-OP-T Assessment and Plan Start: 08/06/22 16:01 Freq: Status: Active Protocol: Document 09/17/22 07:30 SP (Rec: 09/17/22 08:35 SP [id number]) Physical Therapy Assessment Goals Two Impairment HEP Short Term Goal (STG) Bing will be independent with a HEP for knee and hip strengthening. 09/17/22: progressin way hip, stationary/walking lunges , eccentric squat taps, fwd step down, band walk. STG Duration 5 weeks progressin09/17/22 One Impairment Pain Short Term Goal (STG) Bing will ascend her two steps to enter her home with an alternating gait pattern and without an increase in baseline pain. 09/10/21: pt stated still having L knee pain descending stairs but little better. STG Duration 5 weeks -progress 09/10/21 Retirement Goal (LTG) Bing will walk for 1 mile with pain of 1/10 or less. 09/10/21: progressing she was able to walk 2.5 miles wa [employer] but didn't ask if needed sit rest. Recheck next tx. LTG Duration 10 weeks -progressing 09/10/21 Assessment Summary Assessment Pt good feedback challenged work this tx: uneven step ups carrying basket, SLS RDL ( continue in PT) added to HEP 4 way hip light contact needed for stability, walking lunge. Pt reported Ktaping still helps R medial knee comfort/ almost painfree. Physical Therapy Plan Frequency and Duration Frequency of Treatment 2x/Week Duration of treatment (weeks) 10 Plan of Care Start Date 08/07/22 Plan of Care End Date 10/16/22 Therapeutic Interventions Therapeutic Interventions Aquatic Therapy,Balance Training,Gait Training,Home Exercise Program,Joint Mobilizations,Manual Therapy, Neuromuscular Re-education, Self-Care/Home Management, Therapeutic Activities, Therapeutic Exercises Modalities Cold Pack/Ice Massage,Electric Stimulation,Hot Packs Next Visit Focus/Plan Next Note Type Treatment Note Next Visit Plan Recheck HEP: 4 way hip, walking lunges, eccentric squat, fwd step down, band walk. Review condense HEP. Next tx: Add SLS activies and continue uneven surface functional strengthening. Review HEP: Progress squats, consider multidirectional mini lunges if pt sx continue to improve.
--- NOTE | 2022-09-20 13:00 | PT.OTN ---
Current Diagnoses Pain in left knee (09/20/22) Unspecified abnormalities of gait and mobility (09/20/22) Strain of unspecified muscle(s) and tendon(s) at lower leg level, unspecified leg, initial encounter (09/20/22) Physical Therapy Treatment Note PT-OP-A Visit Information Start: 08/06/22 16:01 Freq: Status: Active Protocol: Document 09/20/22 12:20 SP (Rec: 09/20/22 13:04 SP [id number]) Out-Patient Physical Therapy Visit Information Visit Information Visit Type Treatment Note Visit Note 10th visit and PN in 2 visits 10/08 with PT. PT to update POC in 4 visits on 10/16 visit, expires this date. Visit Start Time 12:20 Visit Stop Time 13:00 Total Visit Minutes 40 Visit Number 8 Number of REAL TIME OPERATOR Visits 4 PT-OP-B Current Condition Start: 08/06/22 16:01 Freq: Status: Active Protocol: Document 08/07/22 09:48 AMB (Rec: 08/07/22 09:59 AMB [id number]) Current Condition History of Current Condition Onset Date 3-4 weeks Current Complaints L knee pain History of Current Condition L knee is painful and ibuprofen is helpful. Hiking on a - going [place] on [facility] with trekking pole started the pain, denies any falls, specific even on the hike. On the inside of the L knee feels hot, twisting is painful, like walking in the kitchen. At rest the knee feels ok, walking is the worst. Does have a cane at home. Does have stairs but doesn't have to use them. 2 DIANA without a rail, currently step to to go up/down stairs. Main form of exercises is walking/hiking. Treatment Goals Patient/Caregiver Goals Return to hiking Personal Factors Other Personal Factors That May Effect Hx hypothyroid, depression, Therapy/Recovery hypertesnion, back pain PT-OP-C Subjective Start: 08/06/22 16:01 Freq: Status: Active Protocol: Document 09/20/22 12:20 SP (Rec: 09/20/22 13:04 SP [id number]) OP-PT Subjective Patient Comments Patient Comments Pt reported was ableto walk [place] loop without stopping and passed 4 people, painfree. Doing well with Ktaping L knee support. Pt reports will be hiking in [facility], wants to be sure ther ex can help support incline/decline, uneven surfaces. PT-OP-G Mobility & Gait Start: 08/06/22 16:01 Freq: Status: Active Protocol: Document 08/07/22 09:45 AMB (Rec: 08/07/22 13:44 AMB [id number]) OP Gait Assessment Comments Gait Comments Antalgic gait pattern with WBOS, reduced trunk rotation. Pt does not attend with AD. PT-OP-J Posture/Palpation/Skin Start: 08/06/22 16:01 Freq: Status: Active Protocol: Document 08/07/22 09:45 AMB (Rec: 08/07/22 13:44 AMB [id number]) Palpation Assessment Location One Palpation Location Medial L knee Palpation Details Edema at popliteal fossa, tenderness over medial knee PT-OP-K Range of Motion Start: 08/06/22 16:01 Freq: Status: Active Protocol: Document 08/07/22 09:45 AMB (Rec: 08/07/22 13:44 AMB [id number]) Knee Goniometric Range of Motion Knee Right Flexion Active (degrees) 120 Extension Active (degrees) 0 Left Flexion Active (degrees) 123 Extension Active (degrees) 0 PT-OP-L Special Tests Start: 08/06/22 16:01 Freq: Status: Active Protocol: Document 08/07/22 09:45 AMB (Rec: 08/07/22 13:44 AMB [id number]) Special Tests Knee Special Tests Apley's Compression Comments pt feels a sensation on medial but no click or outright pain. Varus- 25 Degrees Test Results - Patellar Grind Test Test Results - Valgus- 25 Degrees Test Results - Posterior Draw Test Results - Anterior Draw Test Results - PT-OP-M Strength Start: 08/06/22 16:01 Freq: Status: Active Protocol: Document 08/07/22 09:45 AMB (Rec: 08/07/22 15:49 AMB [id number]) Hip Strength Hip Manual Muscle Testing Right Flexion (L2) 4+ Good+ Extension (S1) 4+ Good+ Abduction 4+ Good+ Left Flexion (L2) 4+ Good+ Extension (S1) 4+ Good+ Abduction 4+ Good+ Knee Strength Knee Manual Muscle Testing Right Flexion (S2) 4+ Good+ Extension (L3) 4+ Good+ Left Flexion (S2) 4+ Good+ Extension (L3) 4 Good PT-OP-Q Treatments Start: 08/06/22 16:01 Freq: Status: Active Protocol: Document 09/20/22 12:20 SP (Rec: 09/20/22 13:04 SP [id number]) Gym Equipment Shuttle Recovery jump squat Resistance 37# (no new bands) Shuttle Recovery Platform Stable Reps/Time x15 Unilateral Squats Details L medial knee discomfort today , not better with midquad/glut fac Resistance 37# (1 new band) Shuttle Recovery Platform Stable Reps/Time 2x15 each LE Bilateral Squats Details good eccentric control Resistance 75#>87 # (1 new band) Shuttle Recovery Platform Stable,Unstable Reps/Time 2x15 reps, cued glut/prox quad , fac decr distal supra pat discomfort Shuttle Rebound SLS Comments LLE 7 sec, RLE 7sec light jumps Exercise Details rail contact, cued eccentric knee flex/ ankle DF land Reps/Duration 3 min Comments big/ little low jumps Sport Cord red Exercise Details Fwd/Bwd/Lat 8 box, Fwd/Lat 6 box+ blue foam, BOSU Cord/Resistance red Reps/Duration x10 reps each direction Comments cued as needed for core, slower pacing control, tall posture for stability, CGA Therapeutic Exercises Supine Exercises stretching Supine Exercise Name supine/prone: quad, HS, ITB, Add, Side left Reps/Minutes 30 each Comments good feedback stretch, occasional cue for proper set up/form. Standing Exercises lateral hops Standing Exercise Name trial in PT: double leg gentle eccentric landing Equipment Used (limited reps due to hindered by breast tissue decreased support) Reps/Minutes x5 reps lateral Comments cued eccentric DF and knee flexion, no painfree Gait Training Gait Activity stairs Comments ascend/descend 14 stairs, cued pelvic shift posteriorly to allow glut, HS and mid quad facilitation. PT-OP-T Assessment and Plan Start: 08/06/22 16:01 Freq: Status: Active Protocol: Document 09/20/22 12:20 SP (Rec: 09/20/22 13:04 SP [id number]) Physical Therapy Assessment Goals Two Impairment HEP Short Term Goal (STG) Bing will be independent with a HEP for knee and hip strengthening. 09/17/22: progressin way hip, stationary/walking lunges , eccentric squat taps, fwd step down, band walk, RDL. 09/20/22: added stretching w/ Strap, lateral hops if painfree and good understanding proper form eccentric landing. STG Duration 5 weeks progressin09/17/22 One Impairment Pain Short Term Goal (STG) Bing will ascend her two steps to enter her home with an alternating gait pattern and without an increase in baseline pain. 09/10/21: pt stated still having L knee pain descending stairs but little better. STG Duration 5 weeks -progress 09/10/21 Assisted Goal (LTG) Bing will walk for 1 mile with pain of 1/10 or less. 09/10/21: progressing she was able to walk 2.5 miles wa [employer] but didn't ask if needed sit rest. Recheck next tx. LTG Duration 10 weeks -progressing 09/10/21 Assessment Summary Assessment Pt good feedback response to all ther ex today, painfree, cues as needed for knee alignment. Removed Ktaping, asked wait til later to reapply to give skin a rest, noted pink in color due to good adhesive on skin. Improved eccentri knee flexion during descend stairs after cues pelvic posterior wt shift posterior chain fac support. Physical Therapy Plan Frequency and Duration Frequency of Treatment 2x/Week Duration of treatment (weeks) 10 Plan of Care Start Date 08/07/22 Plan of Care End Date 10/16/22 Therapeutic Interventions Therapeutic Interventions Aquatic Therapy,Balance Training,Gait Training,Home Exercise Program,Joint Mobilizations,Manual Therapy, Neuromuscular Re-education, Self-Care/Home Management, Therapeutic Activities, Therapeutic Exercises Modalities Cold Pack/Ice Massage,Electric Stimulation,Hot Packs Next Visit Focus/Plan Next Note Type Treatment Note Next Visit Plan Recheck HEP: 4 way hip, walking lunges, eccentric squat, fwd step down, band walk. Review condense HEP. shuttle recovery jump squat. Next tx: Add SLS activies and continue uneven surface functional strengthening. Review HEP: Progress squats, consider multidirectional mini lunges if pt sx continue to improve.
--- NOTE | 2022-10-08 12:48 | PT.OTN ---
Current Diagnoses Pain in left knee (10/08/22) Unspecified abnormalities of gait and mobility (10/08/22) Strain of unspecified muscle(s) and tendon(s) at lower leg level, unspecified leg, initial encounter (10/08/22) Physical Therapy Treatment Note PT-OP-A Visit Information Start: 08/06/22 16:01 Freq: Status: Active Protocol: Document 10/08/22 09:52 AMB (Rec: 10/08/22 10:27 AMB [id number]) Out-Patient Physical Therapy Visit Information Visit Information Visit Type Progress Note Visit Start Time 09:45 Visit Stop Time 10:30 Total Visit Minutes 45 Visit Number 9 Number of RADIATION OFFICER Visits 0 PT-OP-B Current Condition Start: 08/06/22 16:01 Freq: Status: Active Protocol: Document 08/07/22 09:48 AMB (Rec: 08/07/22 09:59 AMB [id number]) Current Condition History of Current Condition Onset Date 3-4 weeks Current Complaints L knee pain History of Current Condition L knee is painful and ibuprofen is helpful. Hiking on a - going downhill on [facility] with trekking pole started the pain, denies any falls, specific even on the hike. On the inside of the L knee feels hot, twisting is painful, like walking in the kitchen. At rest the knee feels ok, walking is the worst. Does have a cane at home. Does have stairs but doesn't have to use them. 2 DIA[place] without a rail, currently step to to go up/down stairs. Main form of exercises is walking/hiking. Treatment Goals Patient/Caregiver Goals Return to hiking Personal Factors Other Personal Factors That May Effect Hx hypothyroid, depression, Therapy/Recovery hypertesnion, back pain PT-OP-C Subjective Start: 08/06/22 16:01 Freq: Status: Active Protocol: Document 09/20/22 12:20 SP (Rec: 09/20/22 13:04 SP [id number]) OP-PT Subjective Patient Comments Patient Comments Pt reported was ableto walk [place] loop without stopping and passed 4 people, painfree. Doing well with Ktaping L knee support. Pt reports will be hiking in [facility], wants to be sure ther ex can help support incline/decline, uneven surfaces. PT-OP-G Mobility & Gait Start: 08/06/22 16:01 Freq: Status: Active Protocol: Document 08/07/22 09:45 AMB (Rec: 08/07/22 13:44 AMB [id number]) OP Gait Assessment Comments Gait Comments Antalgic gait pattern with WBOS, reduced trunk rotation. Pt does not attend with AD. PT-OP-J Posture/Palpation/Skin Start: 08/06/22 16:01 Freq: Status: Active Protocol: Document 08/07/22 09:45 AMB (Rec: 08/07/22 13:44 AMB [id number]) Palpation Assessment Location One Palpation Location Medial L knee Palpation Details Edema at popliteal fossa, tenderness over medial knee PT-OP-K Range of Motion Start: 08/06/22 16:01 Freq: Status: Active Protocol: Document 08/07/22 09:45 AMB (Rec: 08/07/22 13:44 AMB [id number]) Knee Goniometric Range of Motion Knee Right Flexion Active (degrees) 120 Extension Active (degrees) 0 Left Flexion Active (degrees) 123 Extension Active (degrees) 0 PT-OP-L Special Tests Start: 08/06/22 16:01 Freq: Status: Active Protocol: Document 08/07/22 09:45 AMB (Rec: 08/07/22 13:44 AMB [id number]) Special Tests Knee Special Tests Apley's Compression Comments pt feels a sensation on medial but no click or outright pain. Varus- 25 Degrees Test Results - Patellar Grind Test Test Results - Valgus- 25 Degrees Test Results - Posterior Draw Test Results - Anterior Draw Test Results - PT-OP-M Strength Start: 08/06/22 16:01 Freq: Status: Active Protocol: Document 08/07/22 09:45 AMB (Rec: 08/07/22 15:49 AMB [id number]) Hip Strength Hip Manual Muscle Testing Right Flexion (L2) 4+ Good+ Extension (S1) 4+ Good+ Abduction 4+ Good+ Left Flexion (L2) 4+ Good+ Extension (S1) 4+ Good+ Abduction 4+ Good+ Knee Strength Knee Manual Muscle Testing Right Flexion (S2) 4+ Good+ Extension (L3) 4+ Good+ Left Flexion (S2) 4+ Good+ Extension (L3) 4 Good PT-OP-Q Treatments Start: 08/06/22 16:01 Freq: Status: Active Protocol: Document 10/08/22 21:19 AMB (Rec: 10/08/22 21:25 AMB [id number]) Gym Equipment Shuttle Recovery jump squat Resistance 37# (no new bands) Shuttle Recovery Platform Stable Reps/Time x15 Bilateral Squats Details good eccentric control Resistance 75#>87 # (1 new band) Shuttle Recovery Platform Stable,Unstable Reps/Time 2x15 reps, cued glut/prox quad , fac decr distal supra pat discomfort Therapeutic Exercises Standing Exercises 4way hip Standing Exercise Name added to HEP Side bilateral Resistance TB #1 loop Equipment Used contact back chair Reps/Minutes x10 Comments cued tall postural alignment over stance LE, light contact slow con/ecc mini lunge Standing Exercise Name 1. mini walking lunge fwd Reps/Minutes 10 ft x1 lap Comments added 2# weight Neuro Re-Education Treatment Balance Activities SLS Reps/Duration 15 Comments can add HT or EC to increase challenge PT-OP-T Assessment and Plan Start: 08/06/22 16:01 Freq: Status: Active Protocol: Document 10/08/22 09:52 AMB (Rec: 10/08/22 10:27 AMB [id number]) Physical Therapy Assessment Goals Two Impairment HEP Short Term Goal (STG) Bing will be independent with a HEP for knee and hip strengthening. 09/17/22: progressin way hip, stationary/walking lunges , eccentric squat taps, fwd step down, band walk, RDL. 09/20/22: added stretching w/ Strap, lateral hops if painfree and good understanding proper form eccentric landing. STG Duration 5 weeks progressin09/17/22 One Impairment Pain Short Term Goal (STG) Bing will ascend her two steps to enter her home with an alternating gait pattern and without an increase in baseline pain. 09/10/21: pt stated still having L knee pain descending stairs but little better. STG Duration MET Floor Specialist Goal (LTG) Bing will walk for 1 mile with pain of 1/10 or less. 09/10/21: progressing she was able to walk 2.5 miles wa [employer] but didn't ask if needed sit rest. Recheck next tx. LTG Duration MET Assessment Summary Assessment Bing has met the majority of her goals but would like to attend one more visit of physical therapy to make sure that she is able to return to strength training without flaring up her knee pain. Physical Therapy Plan Frequency and Duration Frequency of Treatment 1x/Week Duration of treatment (weeks) 4 Plan of Care Start Date 10/08/22 Plan of Care End Date 11/05/22 Therapeutic Interventions Therapeutic Interventions Aquatic Therapy,Balance Training,Gait Training,Home Exercise Program,Joint Mobilizations,Manual Therapy, Neuromuscular Re-education, Self-Care/Home Management, Therapeutic Activities, Therapeutic Exercises Modalities Cold Pack/Ice Massage,Electric Stimulation,Hot Packs Next Visit Focus/Plan Next Note Type Treatment Note
--- NOTE | 2022-10-08 12:50 | PT.OPPOC ---
Addendum entered and electronically signed by Roxanne Walton, PT 10/09/22 12:50: signature needed Original Note: Physical, Occupational & Speech Therapy At [facility] Current Diagnoses Pain in left knee (10/08/22) Unspecified abnormalities of gait and mobility (10/08/22) Strain of unspecified muscle(s) and tendon(s) at lower leg level, unspecified leg, initial encounter (10/08/22) Visit Care Team Role Provider Type Jada Chauhan DO Family Provider Physician Primary Care Provider Specialty: Medical Address: [address] [place] [address], [address], [address] Email: [email or web address] Monisha Aldana DO Attending Provider Physician Referring Provider Specialty: Family Practice Address: [address] [place] [address], [address] Phone: Fax: Email: [email or web address] Plan Of Care PT-OP-T Assessment and Plan Start: 08/06/22 16:01 Freq: Status: Active Protocol: Document 10/08/22 09:52 AMB (Rec: 10/08/22 10:27 AMB [id number]) Physical Therapy Assessment Goals Two Impairment HEP Short Term Goal (STG) Bing will be independent with a HEP for knee and hip strengthening. 09/17/22: progressin way hip, stationary/walking lunges , eccentric squat taps, fwd step down, band walk, RDL. 09/20/22: added stretching w/ Strap, lateral hops if painfree and good understanding proper form eccentric landing. STG Duration 5 weeks progressin09/17/22 One Impairment Pain Short Term Goal (STG) Bing will ascend her two steps to enter her home with an alternating gait pattern and without an increase in baseline pain. 09/10/21: pt stated still having L knee pain descending stairs but little better. STG Duration MET Fdc Goal (LTG) Bing will walk for 1 mile with pain of 1/10 or less. 09/10/21: progressing she was able to walk 2.5 miles wa [employer] but didn't ask if needed sit rest. Recheck next tx. LTG Duration MET Assessment Summary Assessment Bing has met the majority of her goals but would like to attend one more visit of physical therapy to make sure that she is able to return to strength training without flaring up her knee pain. Physical Therapy Plan Frequency and Duration Frequency of Treatment 1x/Week Duration of treatment (weeks) 4 Plan of Care Start Date 10/08/22 Plan of Care End Date 11/05/22 Therapeutic Interventions Therapeutic Interventions Aquatic Therapy,Balance Training,Gait Training,Home Exercise Program,Joint Mobilizations,Manual Therapy, Neuromuscular Re-education, Self-Care/Home Management, Therapeutic Activities, Therapeutic Exercises Modalities Cold Pack/Ice Massage,Electric Stimulation,Hot Packs Next Visit Focus/Plan Next Note Type Treatment Note Plan of Care Dates Plan of Care Start Date 10/08/22 Plan of Care End Date 11/05/22 Electronically Signed by: Roxanne Walton, PT 10/09/22 0764 If you are in agreement with this Plan of Care, please return a signed and dated copy. I have reviewed this Plan of Care and certify that the skilled therapy services above are required to meet the patient?s needs. Physician Signature Date Printed Name and Credentials Clinical Instructor Signature Printed Name and Credentials
--- NOTE | 2022-10-24 14:55 | PT.OTN ---
Current Diagnoses Pain in left knee (10/23/22) Unspecified abnormalities of gait and mobility (10/23/22) Strain of unspecified muscle(s) and tendon(s) at lower leg level, unspecified leg, initial encounter (10/23/22) Physical Therapy Treatment Note PT-OP-A Visit Information Start: 08/06/22 16:01 Freq: Status: Active Protocol: Document 10/23/22 09:48 AMB (Rec: 10/23/22 10:26 AMB [id number]) Out-Patient Physical Therapy Visit Information Visit Information Visit Type Treatment Note Visit Start Time 09:45 Visit Stop Time 10:30 Total Visit Minutes 45 Visit Number 10 PT-OP-B Current Condition Start: 08/06/22 16:01 Freq: Status: Active Protocol: Document 08/07/22 09:48 AMB (Rec: 08/07/22 09:59 AMB [id number]) Current Condition History of Current Condition Onset Date 3-4 weeks Current Complaints L knee pain History of Current Condition L knee is painful and ibuprofen is helpful. Hiking on a - going downhill on [facility] with trekking pole started the pain, denies any falls, specific even on the hike. On the inside of the L knee feels hot, twisting is painful, like walking in the kitchen. At rest the knee feels ok, walking is the worst. Does have a cane at home. Does have stairs but doesn't have to use them. 2 DIANA without a rail, currently step to to go up/down stairs. Main form of exercises is walking/hiking. Treatment Goals Patient/Caregiver Goals Return to hiking Personal Factors Other Personal Factors That May Effect Hx hypothyroid, depression, Therapy/Recovery hypertesnion, back pain PT-OP-C Subjective Start: 08/06/22 16:01 Freq: Status: Active Protocol: Document 10/23/22 09:48 AMB (Rec: 10/23/22 10:26 AMB [id number]) OP-PT Subjective Patient Comments Patient Comments Going on hikes with 0/10 pain, has returned to weight lifting without pain. PT-OP-G Mobility & Gait Start: 08/06/22 16:01 Freq: Status: Active Protocol: Document 08/07/22 09:45 AMB (Rec: 08/07/22 13:44 AMB [id number]) OP Gait Assessment Comments Gait Comments Antalgic gait pattern with WBOS, reduced trunk rotation. Pt does not attend with AD. PT-OP-J Posture/Palpation/Skin Start: 08/06/22 16:01 Freq: Status: Active Protocol: Document 08/07/22 09:45 AMB (Rec: 08/07/22 13:44 AMB [id number]) Palpation Assessment Location One Palpation Location Medial L knee Palpation Details Edema at popliteal fossa, tenderness over medial knee PT-OP-K Range of Motion Start: 08/06/22 16:01 Freq: Status: Active Protocol: Document 08/07/22 09:45 AMB (Rec: 08/07/22 13:44 AMB [id number]) Knee Goniometric Range of Motion Knee Right Flexion Active (degrees) 120 Extension Active (degrees) 0 Left Flexion Active (degrees) 123 Extension Active (degrees) 0 PT-OP-L Special Tests Start: 08/06/22 16:01 Freq: Status: Active Protocol: Document 08/07/22 09:45 AMB (Rec: 08/07/22 13:44 AMB [id number]) Special Tests Knee Special Tests Apley's Compression Comments pt feels a sensation on medial but no click or outright pain. Varus- 25 Degrees Test Results - Patellar Grind Test Test Results - Valgus- 25 Degrees Test Results - Posterior Draw Test Results - Anterior Draw Test Results - PT-OP-M Strength Start: 08/06/22 16:01 Freq: Status: Active Protocol: Document 08/07/22 09:45 AMB (Rec: 08/07/22 15:49 AMB [id number]) Hip Strength Hip Manual Muscle Testing Right Flexion (L2) 4+ Good+ Extension (S1) 4+ Good+ Abduction 4+ Good+ Left Flexion (L2) 4+ Good+ Extension (S1) 4+ Good+ Abduction 4+ Good+ Knee Strength Knee Manual Muscle Testing Right Flexion (S2) 4+ Good+ Extension (L3) 4+ Good+ Left Flexion (S2) 4+ Good+ Extension (L3) 4 Good PT-OP-Q Treatments Start: 08/06/22 16:01 Freq: Status: Active Protocol: Document 10/23/22 09:48 AMB (Rec: 10/23/22 10:26 AMB [id number]) Therapeutic Exercises Supine Exercises stretching Supine Exercise Name supine/prone: quad, HS, ITB, Add, Side left Reps/Minutes 30 each Comments good feedback stretch, occasional cue for proper set up/form. Standing Exercises lateral hops Standing Exercise Name trial in PT: double leg gentle eccentric landing Equipment Used (limited reps due to hindered by breast tissue decreased support) Reps/Minutes x5 reps lateral Comments cued eccentric DF and knee flexion, no painfree band walk Standing Exercise Name lateral- added to HEP Resistance #3 TB Reps/Minutes 20 ft x2 laps Comments cued contact needed, clear trail LE step ups Standing Exercise Name 1. repeated single step up/ back down 2. alternate 3. carry 5# basket altern Side left Resistance rail support lateral, forward down Equipment Used 6 step + blue foam f/b/l Reps/Minutes 10 reps each LE Comments painfree, little unsteady w/ basket no LOB, SBA mini lunge Standing Exercise Name 1. mini walking lunge fwd Reps/Minutes 10 ft x1 lap Comments added 2# weight hamstring stretch Standing Exercise Name on stair Reps/Minutes 30x2 PT-OP-T Assessment and Plan Start: 08/06/22 16:01 Freq: Status: Active Protocol: Document 10/23/22 09:48 AMB (Rec: 10/23/22 10:26 AMB [id number]) Physical Therapy Assessment Goals Two Impairment HEP Short Term Goal (STG) Bing will be independent with a HEP for knee and hip strengthening. 09/17/22: progressin way hip, stationary/walking lunges , eccentric squat taps, fwd step down, band walk, RDL. 09/20/22: added stretching w/ Strap, lateral hops if painfree and good understanding proper form eccentric landing. STG Duration MET One Impairment Pain Short Term Goal (STG) Bing will ascend her two steps to enter her home with an alternating gait pattern and without an increase in baseline pain. 09/10/21: pt stated still having L knee pain descending stairs but little better. STG Duration MET Alf Goal (LTG) Bing will walk for 1 mile with pain of 1/10 or less. 09/10/21: progressing she was able to walk 2.5 miles wa [place] but didn't ask if needed sit rest. Recheck next tx. LTG Duration MET Assessment Summary Assessment Bing has done very well with physical therapy. She can hike without pain, and has returned to weight training. She was encouraged to continue with balance training, but is discharged to her [facility] at this time as she is doing very well. Physical Therapy Plan Frequency and Duration Frequency of Treatment 1x/Week Duration of treatment (weeks) 4 Plan of Care Start Date 10/08/22 Plan of Care End Date 11/05/22 Therapeutic Interventions Therapeutic Interventions Aquatic Therapy,Balance Training,Gait Training,Home Exercise Program,Joint Mobilizations,Manual Therapy, Neuromuscular Re-education, Self-Care/Home Management, Therapeutic Activities, Therapeutic Exercises Modalities Cold Pack/Ice Massage,Electric Stimulation,Hot Packs Discharge Physical Therapy Discharge Reasons Goals Met
== END 2022-10-25 10:14 | disposition home or self-care (01) ==
LOC: PHYS 09:45
PROVIDERS: Family Provider Family Medicine; PCP Family Medicine; Referring Provider Family Medicine; Visit Provider Family Medicine
DX: S86.919A Strain of unspecified muscle(s) and tendon(s) at lower leg level, unspecified leg, initial encounter (principal); M25.562 Pain in left knee; R26.9 Unspecified abnormalities of gait and mobility
CPT/HCPCS: 97110; 97112; 97140; 97161

== ENCOUNTER → 2023-03-18 06:45 | Outpatient (CLI) | payer MEDICARE, BC, SELFPAY ==
[2023-03-18 07:30] LABS: Add Manual Diff / Slide Review NO; Basophils Absolute Auto 0 /uL (0-100); Basophils Percent Auto 1.1 % (0-2); Eosinophils Absolute Auto 200 /uL (0-450); Eosinophils Percent Auto 5.5 % (2-4); Hematocrit 38.6 % (36-46); Hemoglobin 13.1 g/dL (12.0-16.0); Lymphocytes Absolute Auto 1200 /uL (1100-4500); Lymphocytes Percent Auto 32.9 % (25-40); Mean Corpuscular Hemoglobin 31.2 PG (26-34); Mean Corpuscular Volume 91.6 fL (80-100); Monocytes Absolute Auto 300 /uL (0-900); Monocytes Percent Auto 8.7 % (3-14); Neutrophils Absolute Auto 1900 /uL (1500-7000); Neutrophils Percent Auto 51.8 % (50-75); Platelet Count 278 X10^3/uL (150-400); Red Blood Cell Count 4.21 X10^6/uL (4.0-5.2); White Blood Cell Count 3.7 X10^3/uL (4.5-11.0)
[2023-03-18 08:18] LABS: Albumin 3.8 g/dL (3.5-5.0); Carbon Dioxide 32 mmol/L (22-32); Estimated Glomerular Filt Rate > 60 mL/min (>60); HEMOLYSIS < 15 (0-50)
[2023-03-18 08:28] LABS: Alanine Aminotransferase 25 IU/L (<35); Albumin Globulin Ratio 1.1 (1.0-2.8); Alkaline Phosphatase 81 U/L (38-126); Aspartate Aminotransferase 26 IU/L (14-36); BUN Creatinine Ratio 19.4 (6-22); Bilirubin Total 0.7 mg/dL (0.2-1.3); Blood Urea Nitrogen 14 mg/dL (7-17); Calcium 9.1 mg/dL (8.4-10.2); Chloride 103 mmol/L (98-107); Globulin 3.4 g/dL (1.7-4.1); Glucose 101 mg/dL (80-110); Potassium 4.1 mmol/L (3.4-5.1); Sodium 137 mmol/L (137-145); Total Protein 7.2 g/dL (6.3-8.2)
[2023-03-18 09:11] LABS: Cholesterol 251 mg/dL (140-199); HDL Cholesterol 80 mg/dL (40-60); LDL Cholesterol Calculated 152 mg/dL (<100); Triglycerides 95 mg/dL (35-150)
[2023-03-18 09:14] LABS: High Sensitivity CRP - Cardiac 1.2 mg/L (1.0-3.0)
[2023-03-18 09:30] LABS: Free T3, Triiodothyronine Free 3.95 pg/mL (2.77-5.27); Free T4, Direct Thyroxine 1.34 ng/dL (0.78-2.19)
[2023-03-18 09:43] LABS: Thyroid Stimulating Hormone 1.52 uIU/mL (0.47-4.68)
[2023-03-19 10:00] LABS: Thyroid Peroxidase Antibodies 104 IU/mL (0-34)
[2023-04-07 13:07] LABS: Triiodothyronine T3 Reverse 19.7
== END ==
PROVIDERS: Internal Medicine Hematology & Oncology; Family Provider Family Medicine; PCP Family Medicine; Referring Provider Family Medicine; Visit Provider Family Medicine
DX: C50.911 Malignant neoplasm of unspecified site of right female breast (principal); E03.9 Hypothyroidism, unspecified; R00.0 Tachycardia, unspecified; Z79.811 Long term (current) use of aromatase inhibitors; E66.9 Obesity, unspecified; I10 Essential (primary) hypertension; E06.3 Autoimmune thyroiditis; E03.8 Other specified hypothyroidism
CPT/HCPCS: 36415; 80053; 80061; 84439; 84443; 84481; 84482; 85025; 86140; 86376

== ENCOUNTER → 2023-03-26 09:09 | Outpatient (CLI) | payer MEDICARE, BC, SELFPAY ==
--- NOTE | 2023-03-26 09:12 | DI.MG.S_ITS ---
BILATERAL DIGITAL SCREENING MAMMOGRAM 3D/2D WITH CAD: 03/26/2023 CLINICAL: Routine screening. Personal history of right breast cancer. Comparison is made to exams dated: 03/22/2022 mammogram, 02/20/2021 mammogram, and 02/18/2020 mammogram - [facility]. There are scattered areas of fibroglandular density in both breasts (category b / 25%-50% glandular tissue). Current study was also evaluated with a Computer Aided Detection (CAD) system. There are benign post operative findings in the right breast. No significant masses, calcifications, or other findings are seen in either breast. There has been no significant interval change. IMPRESSION: BENIGN There is no mammographic evidence of malignancy. A 1 year screening mammogram is recommended. This exam was interpreted at Station ID: [id number]. NOTE: For mammograms, a report in lay terms will be sent to the patient. Approximately 15% of breast malignancies will not be visualized mammographically. In the management of a palpable breast mass, a negative mammogram must not discourage biopsy of a clinically suspicious lesion. Electronically Signed By: Erin cheek/olivia:03/26/2023 12:14:47 copy to: IAIN FIGUEROA letter sent: Normal Exam ACR BI-RADS Category 2: Benign Finding(s) [id number]
== END ==
PROVIDERS: Family Provider Family Medicine; PCP Family Medicine; Referring Provider Internal Medicine Hematology & Oncology; Visit Provider Internal Medicine Hematology & Oncology
DX: Z12.31 Encounter for screening mammogram for malignant neoplasm of breast (principal); C50.911 Malignant neoplasm of unspecified site of right female breast
CPT/HCPCS: 77063; 77067

== ENCOUNTER 2023-06-02 13:24 | Emergency (ER) | payer MEDICARE, BC, SELFPAY ==
[2023-06-02 14:02] VITALS: BP 137/73; PULSE 66; RESP 16; TEMP 36.1; O2SAT 98; BMI 36.1
--- NOTE | 2023-06-02 14:09 | DI.US.S_ITS ---
PROCEDURE: US PERIPH VENOUS LOW EXTREM LT INDICATIONS: CALF PAIN AND RECENT TRAVEL TECHNIQUE: Real-time imaging, as well as color and pulse Doppler interrogation, were performed of the lower extremity deep veins from the inguinal ligament to the popliteal fossa, with documentation of the visualized calf veins. COMPARISON: None. FINDINGS: The common femoral, femoral, popliteal, and the visualized calf veins are normally compressible, and free of intraluminal thrombus. Color and pulse Doppler demonstrate normal phasic intraluminal flow. There is normal augmentation response to distal compression maneuver. Within the left mid posterior calf, there is a superficial vein that demonstrates occlusive thrombus. IMPRESSION: No findings of lower extremity deep venous thrombosis. Mild superficial thrombosis seen within the left mid posterior calf. Dictated by: Trevor Abdullahi M.D. on 06/02/2023 at 13:53 Approved by: Trevor Abdullahi M.D. on 06/02/2023 at 13:54
--- NOTE | 2023-06-02 16:56 | ED_ITS ---
HPI - Extremity Problem <Blake Sagastume PA-C - Last Filed: 06/02/23 17:01> General Chief complaint: Extremity Problem,Nontraumatic Stated complaint: sent poss blood clot LT calf Time Seen by Provider: 06/02/23 15:21 Source: patient Mode of arrival: Ambulatory History of Present Illness HPI Narrative: 72-year-old female with past medical history hypercalcemia, breast cancer, depression, osteopenia, GERD, hypertension, Amaury's thyroiditis, benign familial tremor, obstructive sleep apnea presents to the ED with left calf swelling and pain. Patient was on a long flight back from [facility] 5 days ago. Patient also had COVID when in [facility]. Patient was sent to the ED by her PCP to rule out a DVT. Patient denies fever, chills, chest pain, shortness of breath, nausea, vomiting. Related Data Home Medications Medication Instructions Recorded Confirmed calcium 600 mg capsule mg PO 03/31/23 cholecalciferol (vitamin D3) 25 175 mcg PO DAILY 03/31/23 03/31/23 mcg (1,000 unit) tablet (Vitamin D3) Previous Rx's Medication Instructions Recorded epinephrine 0.3 mg/0.3 mL 0.3 mg (0.3 mL) IM PRN PRN 12/21/21 injection, auto-injector (EpiPen Allergic Reaction #2 ea 2-Tobi) Synthroid 50 mcg tablet 50 mcg PO DAILY #90 tabs 12/13/22 (levothyroxine) lisinopril 2.5 mg tablet 2.5 mg PO BID #180 tabs 12/13/22 anastrozole 1 mg tablet 1 mg PO DAILY #90 tabs 03/31/23 nirmatrelvir 300 mg (150 mg See Rx Instructions PO .COMPLEX 04/18/23 x2)-ritonavir 100 mg tablet,dose #30 ea pack (Paxlovid) Allergies Allergy/AdvReac Type Severity Reaction Status Date / Time venom-honey bee Allergy Severe Anaphylaxsi Verified 06/02/23 14:08 s tetracycline AdvReac Mild STOMACH Verified 06/02/23 14:08 UPSET wasps Allergy Severe Anaphlayxsi Uncoded 06/02/23 14:08 s Review of Systems <Blake Sagastume PA-C - Last Filed: 06/02/23 17:01> Review of Systems ROS Unobtainable: All systems reviewed & are unremarkable except as noted in HPI and below Constitutional Constitutional: Denies chills, Denies fatigue, Denies fever(s), Denies frequent falls, Denies lethargy and Denies weakness Eyes Eyes: Denies change in vision, Denies eye discharge, Denies irritation and Denies loss of vision ENT Ears, Nose, Mouth, and Throat: Denies change in voice, Denies dizziness, Denies neck pain, Denies sore throat and Denies throat swelling Cardiovascular Cardiovascular: Denies chest pain, Denies irregular heart rhythm, Denies lightheadedness, Denies palpitations, Denies dyspnea, Denies dyspnea on exertion and Denies orthopnea Respiratory Respiratory: Denies cough, Denies dyspnea, Denies dyspnea on exertion and Denies wheezing Gastrointestinal Gastrointestinal: Denies abdominal pain, Denies change in bowel habits, Denies diarrhea, Denies nausea and Denies vomiting Genitourinary Genitourinary: Denies hematuria, Denies flank pain, Denies urinary incontinence and Denies urinary urgency Musculoskeletal Musculoskeletal: Denies back pain, Denies muscle weakness, Denies neck pain, Denies numbness and Denies tingling Comments: Left calf swelling and pain. Integumentary/Breasts Skin/Breast: Denies pruritus, Denies erythema, Denies rash and Denies wounds Neurologic Neurologic: Denies behavioral changes, Denies confusion, Denies dizziness, Denies frequent falls, Denies loss of vision, Denies numbness, Denies tingling and Denies weakness Psychiatric Psychiatric: Denies anxiety, Denies behavioral changes, Denies confusion, Denies depression, Denies homicidal ideation and Denies suicidal ideation Endocrine Endocrine: Denies fatigue, Denies flushing and Denies palpitations Hematologic/Lymphatic Hematologic/Lymphatic: Denies easy bruising Allergic/Immunologic Allergic/Immunologic: Denies urticaria, Denies throat swelling and Denies wheezing Patient History <Blake Sagastume PA-C - Last Filed: 06/02/23 17:01> Medical History Benign familial tremor (2004) Chicken pox (1956) Chronic back pain (2007) Elevated cholesterol Amaury's thyroiditis (2012) Hemorrhoids (1999) History of hypercalcemia Hypertension (2004) Invasive ductal carcinoma of right breast, stage 1 Measles (1958) Mumps (1956) Obstructive sleep apnea (2013) Perianal fissure Postmenopausal Rubella (1956) Spinal stenosis Uterine polyp (2011) Surgical History Anesthesia History of episiotomy (1973) Perianal fistula (1987) Status post cataract extraction of both eyes with insertion of intraocular lens Status post right breast lumpectomy (~05/2018) Family History Brother Age: 68 Hypertension Father Cancer Grandmother Cancer Breast cancer Mother Cancer Pancreatic cancer Grandfather Heart disease Grandmother Emphysema of lung Social History household members: spouse Smoking Status: Never smoker alcohol intake: former Smoking Status: Never smoker alcohol intake frequency: a few times a week Substance Use Type: does not use Exam <Blake Sagastume PA-C - Last Filed: 06/02/23 17:01> Narrative Exam Narrative: Const General:?cooperative, healthy appearing and comfortable [facility] Head:?normal to inspection Ears:?hearing grossly normal bilaterally Nose:?external nose normal Face and sinus:?normal facial exam and sinuses nontender Mouth:?oral mucosae normal Throat:?posterior oropharynx normal Eyes General:?appearance normal, both eyes and all related structures Neck Neck:?normal visual inspection and no lymphadenopathy noted Resp Effort & Inspection:?normal respiratory effort Auscultation:?clear to auscultation bilaterally Cardio Rate:?regular rate Rhythm:?regular rhythm Musculoskeletal There is a palpable, superficial swelling in the left calf that is tender to palpation. No overlying erythema or warmth of the skin. Strength and sensation is intact. Full range of motion. Patient is neurovascularly intact. Neuro General:?patient alert, patient awake and patient oriented x3 Initial Vital Signs Initial Vital Signs: Vital Signs Temperature 96.9 F L 06/02/23 14:02 Pulse Rate 66 06/02/23 14:02 Respiratory Rate 16 06/02/23 14:02 Blood Pressure 137/73 06/02/23 14:02 Pulse Oximetry 98 06/02/23 14:02 Oxygen Delivery Method Room Air 06/02/23 14:02 <Kaleb Salazar DO - Last Filed: 06/02/23 18:04> Initial Vital Signs Initial Vital Signs: Vital Signs Temperature 96.9 F L 06/02/23 14:02 Pulse Rate 66 06/02/23 14:02 Respiratory Rate 16 06/02/23 14:02 Blood Pressure 137/73 06/02/23 14:02 Pulse Oximetry 98 06/02/23 14:02 Oxygen Delivery Method Room Air 06/02/23 14:02 Course <Blake Sagastume PA-C - Last Filed: 06/02/23 17:01> Orders Ordered: ED Orders 06/02/23 14:09 US periph venous low extrem lt Stat Vital Signs Vital signs: Vital Signs - 8 hr 06/02/23 14:02 Temperature 96.9 F L Pulse Rate 66 Respiratory Rate 16 Blood Pressure 137/73 Pulse Oximetry 98 Oxygen Delivery Method Room Air <Kaleb Salazar DO - Last Filed: 06/02/23 18:04> Orders Ordered: ED Orders 06/02/23 14:09 perip venous low extrem lt Stat Vital Signs Vital signs: Vital Signs - 8 hr 06/02/23 14:02 Temperature 96.9 F L Pulse Rate 66 Respiratory Rate 16 Blood Pressure 137/73 Pulse Oximetry 98 Oxygen Delivery Method Room Air MDM - Extremity (Nontraumatic) <CHAD Hickman Last Filed: 06/02/23 17:01> MDM Narrative Medical decision making narrative: 72-year-old female with past medical history hypercalcemia, breast cancer, depression, osteopenia, GERD, hypertension, Amaury's thyroiditis, benign familial tremor, obstructive sleep apnea presents to the ED with left calf swelling and pain. Obtained ultrasound which showed a mild superficial venous thrombosis, but no DVTs. Recommend compression, NSAIDs, Tylenol. Recommend follow-up with PCP as soon as possible. ED return precautions were discussed with patient. Patient verbalized understanding. Medical records reviewed: Yes Discharge Plan Departure Patient Disposition: Home Clinical Impression: Superficial vein thrombosis Instructions: DI for Superficial Thrombophlebitis Activity Restrictions/Additional Instructions: You were evaluated in the ED today for left calf swelling, pain. The ultrasound shows a superficial venous clot, which is different from a deep venous thrombosis. There is no indication for aspirin or other blood thinners for your condition. You may use an Pepe wrap to bandage the calf and you may take ibuprofen, Tylenol for the pain. Please return to the ED if you have worsening symptoms, redness of the skin, chest pain, shortness of breath. Please follow- up with your PCP as soon as possible. Prescriptions: No Action Paxlovid 300 mg (150 mg x 2)-100 mg tablets,dose pack See Rx Instructions PO .COMPLEX Qty: 30 0RF Rx Instructions: take TWO 150 mg tablets of nirmatrelvir with ONE 100 mg tablet of ritonavir twice daily for 5 days PO, only if COVID test is positive and symptoms are <5 days old epinephrine [EpiPen 2-Tobi] 0.3 mg/0.3 mL auto-injector 0.3 mg IM PRN PRN (Reason: Allergic Reaction) Qty: 2 0RF levothyroxine [Synthroid] 50 mcg tablet 50 mcg PO DAILY Qty: 90 3RF Rx Instructions: take on an empty stomach first thing in the morning, wait 30 min before eating or taking other medication lisinopril 2.5 mg tablet 2.5 mg PO BID Qty: 180 3RF calcium 600 mg Capsule PO cholecalciferol (vitamin D3) [Vitamin D3] 25 mcg (1,000 unit) Tablet 175 mcg PO DAILY Patient Comments: PT TAKING 7,000 IU DAILY anastrozole 1 mg Tablet 1 mg PO DAILY Qty: 90 3RF Referrals: Jada Chauhan DO [Primary Care Provider] - Stand Alone Forms: Patient Portal/API <Kaleb Salazar DO - Last Filed: 06/02/23 18:04> Cosign ED Attending [facility] Attestation: Dr Salazar Co-Sign Statement: I was available for consultation during this patient's emergency department visit. This chart is signed by myself for administrative purposes only. I did not have direct contact with this patient during this visit. They were seen independently by the APC.
== END 2023-06-02 15:49 | disposition home or self-care (01) ==
PROVIDERS: Emergency Provider Student in an Organized Health Care Education/Training Program; Family Provider Family Medicine; PCP Family Medicine
DX: I82.890 Acute embolism and thrombosis of other specified veins (principal)
CPT/HCPCS: 93971; 99283

== ENCOUNTER → 2023-07-08 10:48 | Outpatient (CLI) | payer MEDICARE, BC, SELFPAY ==
[2023-07-08 11:40] LABS: Prothrombin Time 11.3 SECONDS (10.1-12.7)
[2023-07-08 11:42] LABS: D Dimer 877 ng/ml (<500)
== END ==
PROVIDERS: Family Provider Family Medicine; PCP Family Medicine; Referring Provider Family Medicine; Visit Provider Family Medicine
DX: D68.59 Other primary thrombophilia (principal)
CPT/HCPCS: 36415; 85379; 85610

== ENCOUNTER → 2023-08-18 07:34 | Outpatient (CLI) | payer MEDICARE, BC, SELFPAY ==
[2023-08-18 08:43] LABS: D Dimer 828 ng/ml (<500)
== END ==
PROVIDERS: Family Provider Family Medicine; PCP Family Medicine; Referring Provider Family Medicine; Visit Provider Family Medicine
DX: D68.59 Other primary thrombophilia (principal)
CPT/HCPCS: 36415; 85379

== ENCOUNTER → 2023-08-19 12:54 | Outpatient (CLI) | payer MEDICARE, BC, SELFPAY ==
--- NOTE | 2023-08-19 12:56 | DI.CT.S_ITS ---
PROCEDURE: CT ANGIO CHEST PE PROTOCOL INDICATIONS: shortness of breath, elevated D-dimer TECHNIQUE: After the administration of intravenous contrast, 2 mm thick sections acquired from the pulmonary apices to the posterior costophrenic angles. 3-dimensional maximum intensity projection (MIP) coronal and sagittal reformats were then acquired through the thorax. For radiation dose reduction, the following was used: automated exposure control, adjustment of mA and/or kV according to patient size. COMPARISON: None. FINDINGS: Image quality: Diagnostic. Pulmonary arteries: Pulmonary arteries are normal in size, and demonstrate no intraluminal filling defects to suggest central pulmonary embolism. Lungs and pleura: Lungs are clear. No pleural effusions or pneumothorax. Central and peripheral airways are patent. Mediastinum: Heart size is normal, without pericardial effusion. No mediastinal or hilar adenopathy. Thoracic aorta is normal in caliber and enhancement. Esophagus is normal in caliber, without hiatal hernia. Bones and chest wall: No suspicious bony lesions. Ribs and thoracic spine appear intact throughout. No axillary or supraclavicular adenopathy. Question possible 3 cm right thyroid nodule in an area of artifact. Upper Abdomen: Multiple small gallstones are present in the gallbladder. There is no gallbladder wall thickening noted. IMPRESSION: 1. No pulmonary embolus. 2. No acute cardiopulmonary process. 3. Question 3 cm right thyroid nodule. Comment: Recommend further evaluation of the thyroid gland with ultrasound. Dictated by: Jonas Khan M.D. on 08/19/2023 at 17:21 Approved by: Jonas Khan M.D. on 08/19/2023 at 17:25
[2023-08-19 13:29] LABS: Estimated Glomerular Filt Rate > 60 mL/min (>60)
== END ==
PROVIDERS: Family Provider Family Medicine; PCP Family Medicine; Referring Provider Family Medicine; Visit Provider Family Medicine
DX: U07.1 COVID-19 (principal); D68.69 Other thrombophilia; R06.00 Dyspnea, unspecified; R79.89 Other specified abnormal findings of blood chemistry; E83.52 Hypercalcemia; E66.9 Obesity, unspecified; I10 Essential (primary) hypertension; Z01.812 Encounter for preprocedural laboratory examination
CPT/HCPCS: 36415; 71275; 82565; Q9967

== ENCOUNTER → 2023-12-11 15:40 | Outpatient (CLI) | payer MEDICARE, SELFPAY ==
[2023-12-11 17:38] LABS: D Dimer 855 ng/ml (<500)
[2023-12-11 17:46] LABS: Add Manual Diff / Slide Review NO; Basophils Absolute Auto 100 /uL (0-100); Eosinophils Absolute Auto 100 /uL (0-450); Eosinophils Percent Auto 2.1 % (2-4); Hematocrit 38.2 % (36-46); Hemoglobin 13.1 g/dL (12.0-16.0); Lymphocytes Absolute Auto 1600 /uL (1100-4500); Lymphocytes Percent Auto 23.6 % (25-40); Mean Corpuscular HGB Conc 34.3 % (30-36); Mean Corpuscular Volume 93.5 fL (80-100); Monocytes Absolute Auto 400 /uL (0-900); Monocytes Percent Auto 5.8 % (3-14); Neutrophils Absolute Auto 4500 /uL (1500-7000); Neutrophils Percent Auto 67.5 % (50-75); Platelet Count 334 X10^3/uL (150-400); Red Blood Cell Count 4.09 X10^6/uL (4.0-5.2); Red Cell Distribution Width 13.6 % (11.6-14.8); White Blood Cell Count 6.7 X10^3/uL (4.5-11.0)
[2023-12-11 17:50] LABS: Vitamin D 25 Hydroxy (D3) 61.5 ng/mL (30.0-100.0)
[2023-12-11 18:30] LABS: Folate 9.7 ng/mL (2.76-20.0); Vitamin B12 369 pg/mL (239-931)
[2023-12-18 22:43] LABS: CK-BB 0 % (0); CK-MB 0 % (0-3); CK-MM 100 % (97-100); Macro Type 1 0 % (Not Observed); Macro Type 2 0 % (Not Observed)
== END ==
PROVIDERS: Family Provider Family Medicine; PCP Family Medicine; Referring Provider Family Medicine; Visit Provider Family Medicine
DX: M79.10 Myalgia, unspecified site (principal); I10 Essential (primary) hypertension; E55.9 Vitamin D deficiency, unspecified; G47.33 Obstructive sleep apnea (adult) (pediatric); R53.83 Other fatigue; E06.3 Autoimmune thyroiditis; E66.9 Obesity, unspecified
CPT/HCPCS: 36415; 82306; 82550; 82552; 82553; 82607; 82746; 83735; 85025; 85379

== ENCOUNTER → 2023-12-22 06:52 | Outpatient (CLI) | payer MEDICARE, SELFPAY ==
--- NOTE | 2023-12-22 06:54 | DI.ECHO.S_ITS ---
[place] [facility]---------+ [facility] +---------+ : : [address] : : : : [id number] : : : : Phone: [phone]+ Echocardiogram Report + + :Name: ISIDRO ROJAS Study Date: 12/22/2023 Height: 61 in : :[facility] ReadingLocation: Weight: 187 lb : : Gender: Female BSA: 1.8 m2 : :: 1950 Age: 73 yrs BP: 167/97 mmHg: :Reason For Study: WORSENING FTIGUE, SHORTNESS OF BREATH : :Ordering Physician: SANDY, : :GLENNA Performed By: Mike Estes : :Referring: GLENNA DELGADO : + + Interpretation Summary The ejection fraction is estimated to be 60-65%. Diastolic parameters suggest probable normal left ventricular diastolic function and normal filling pressures. The right ventricle is normal in size and function. The right ventricular systolic pressure is estimated to be at least 33 mmHg based on an estimated right atrial pressure of 3 mm Hg. No significant valvular abnormality. Procedure: A two-dimensional transthoracic echocardiogram with color flow and Doppler was performed. The study quality was technically adequate. There is no prior echocardiogram noted for this patient. The patient was in normal sinus rhythm during the exam. The heart rate ranged between 65-82 bpm during the study. Left Ventricle: The left ventricle is normal in size and wall thickness. The ejection fraction is estimated to be 60-65%. There are no obvious focal wall motion abnormalities noted but poor endocardial definition reduces the sensitivity for the detection of such. Diastolic parameters suggest probable normal left ventricular diastolic function and normal filling pressures. Right Ventricle: The right ventricle is normal in size and function. The right ventricular systolic function is normal. Atria: The left atrial size is normal. Right atrial size is normal. The interatrial septum grossly appears intact with no obvious evidence for an atrial septal defect. Mitral Valve: The mitral valve is normal in structure and function. There is no mitral valve stenosis. There is trace mitral regurgitation. Aortic Valve: The aortic valve is trileaflet. The aortic valve is mildly calcified. There is no aortic valve stenosis. No aortic regurgitation is present. Tricuspid Valve: The tricuspid valve is normal in structure and function. There is no tricuspid stenosis. There is mild tricuspid regurgitation. The right ventricular systolic pressure is estimated to be at least 33 mmHg based on an estimated right atrial pressure of 3 mm Hg. Pulmonic Valve: The pulmonic valve is not well visualized. There is no pulmonic valvular stenosis. There is mild pulmonic regurgitation. Great Vessels: The aortic root is normal size. The dimensions of the ascending aorta are normal. The IVC is of normal diameter and collapses greater than 50% with a sniff. This suggests a low right atrial pressure of 3 mm Hg. Pericardium/ Pleura There is no pericardial effusion. MMode/2D Measurements & Calculations LVIDd: 4.5 cm LVOT diam: 2.0 cm LVIDs: 3.4 cm Ao root diam: 3.0 cm FS: 25.6 % asc Aorta Diam: 2.9 cm IVSd: 0.99 cm Ao Arch Diam (Prox Trans): 2.7 cm LVPWd: 0.80 cm LV chávez. diameter/BSA (cm/m^2): 2.5 LV sys. diameter/BSA (cm/m^2): 1.8 LA A2 area: 18.6 cm2 RA long axis: 4.4 cm LA A4 area: 17.4 cm2 RA area: 12.5 cm2 LA length (vol): 5.2 cm RA vol: 30.2 ml LA vol: 53.0 ml RA : 16.4 ml/m2 LA vol index: 28.9 ml/m2 IVC diam: 1.6 cm RVD1 (basal): 3.0 cm RVD2 (mid): 2.8 cm TAPSE: 2.5 cm Doppler Measurements & Calculations Ao V2 max: 171.3 cm/sec LVOT Max Topher: 112.5 cm/sec Ao V2 mean: 119.9 cm/sec LV V1 max P.1 mmHg Ao max P.7 mmHg LV V1 VTI: 28.7 cm Ao mean P.4 mmHg GHISLAINE(I,D): 2.7 cm2 Ao V2 VTI: 34.7 cm GHISLAINE(V,D): 2.2 cm2 sev ratio: 0.83 GHISLAINE indexed to BSA (cm^2/m^2): 1.5 MV E max topher: 105.4 cm/sec TR max topher: 273.7 cm/sec MV A max topher: 86.1 cm/sec TR max P.0 mmHg MV E/A: 1.2 PA V2 max: 87.4 cm/sec Med Peak E' Topher: 10.2 cm/sec PA V2 mean: 59.2 cm/sec E/E' med: 10.3 PA mean P.6 mmHg Lat Peak E' Topher: 10.8 cm/sec PA pr(Accel): 29.3 mmHg E/E' lat: 9.7 E/e' average: 10.0 MV dec time: 0.18 sec SV(LVOT): 94.1 ml Reading Physician:NATALIE
== END ==
PROVIDERS: Family Provider Family Medicine; PCP Family Medicine; Referring Provider Family Medicine; Visit Provider Family Medicine
DX: R06.02 Shortness of breath (principal); R79.89 Other specified abnormal findings of blood chemistry; I07.1 Rheumatic tricuspid insufficiency; R53.83 Other fatigue; I10 Essential (primary) hypertension; E06.3 Autoimmune thyroiditis
CPT/HCPCS: 93306

== ENCOUNTER → 2023-12-24 06:48 | Outpatient (CLI) | payer MEDICARE, SELFPAY ==
--- NOTE | 2023-12-24 06:50 | DI.US.S_ITS ---
PROCEDURE: US THYROID INDICATIONS: NODULES TECHNIQUE: Real-time scanning was performed of the thyroid gland, with image documentation. COMPARISON: [facility], [place], US THYROID, 03/20/2018, 13:17. FINDINGS: Thyroid: Right lobe measures 5.2 x 2.7 x 2.5 cm. Left lobe measures 4.3 x 1.6 x 1.2 cm. Isthmus is 2.9 cm thick. Echotexture is heterogeneous. Nodule number: 1 Location: Left mid Size: 0.3 x 0.3 x 0.4 cm compared to 0.4 x 0.3 x 0.3 cm. Composition: Solid Echogenicity: Hypoechoic Shape: wider than tall. Margins: Smooth Echogenic foci: None Total points: 4 ACR TI-RADS category: 4 Nodule number: 2 Location: right superior Size: 2.1 x 1.6 x 1.6 cm compared to 2.1 x 1.5 x 1.6 cm cm. Composition: Solid Echogenicity: Hypoechoic Shape: wider than tall. Margins: Smooth Echogenic foci: None Total points: 4 ACR TI-RADS category: 4 Nodule number: 3 Location: Right inferior Size: 2.1 x 2.2 x 1.9 cm compared to 1.9 x 1.5 x 1.5 cm. Composition: Solid Echogenicity: Hypoechoic Shape: wider than tall. Margins: Smooth Echogenic foci: None Total points: 4 ACR TI-RADS category: 4 IMPRESSION: Lesions 2 and 3 are considered category 4. They have been stable since 2018. No additional follow-up is recommended. Nodule 1 does not meet criteria for additional follow-up. ACR TI-RADS definitions and recommendations: TI-RADS 1 (benign): 0 points. FNA not needed. TI-RADS 2 (not suspicious): 2 points. FNA not needed. TI-RADS 3 (mildly suspicious): 3 points. * FNA if 2.5 cm or larger, follow up if 1.5 cm or larger (at 1, 3, and 5 years). TI-RADS 4 (moderately suspicious): 4-6 points. * FNA if 1.5 cm or larger, follow up if 1 cm or larger (at 1, 2, 3, and 5 years). TI-RADS 5 (highly suspicious): 7 points or more. * FNA if 1 cm or larger, follow up if 0.5 cm or larger (every year for 5 years). Dictated by: Caren Lizama M.D. on 12/24/2023 at 13:34 Approved by: Caren Lizama M.D. on 12/24/2023 at 13:36
== END ==
PROVIDERS: Family Provider Family Medicine; PCP Family Medicine; Referring Provider Family Medicine; Visit Provider Family Medicine
DX: E04.2 Nontoxic multinodular goiter (principal)
CPT/HCPCS: 76536

== ENCOUNTER → 2024-01-16 08:12 | Outpatient (CLI) | payer MEDICARE, SELFPAY | LOC: RESP 08:12 | PROVIDERS: Family Provider Family Medicine; PCP Family Medicine; Referring Provider Internal Medicine Critical Care Medicine; Visit Provider Internal Medicine Critical Care Medicine | DX: R06.02 Shortness of breath (principal) | CPT/HCPCS: 94060; 94726; 94729 ==

== ENCOUNTER → 2024-03-16 08:00 | Outpatient (CLI) | payer MEDICARE, SELFPAY ==
[2024-03-16 09:29] LABS: Alanine Aminotransferase 18 IU/L (<35); Albumin 4.2 g/dL (3.5-5.0); Albumin Globulin Ratio 1.3 (1.0-2.8); Alkaline Phosphatase 76 U/L (38-126); Aspartate Aminotransferase 27 IU/L (14-36); BUN Creatinine Ratio 20.7 (6-22); Bilirubin Total 0.9 mg/dL (0.2-1.3); Blood Urea Nitrogen 17 mg/dL (7-17); Calcium 9.4 mg/dL (8.4-10.2); Carbon Dioxide 29 mmol/L (22-32); Chloride 103 mmol/L (98-107); Estimated Glomerular Filt Rate > 60 mL/min (>60); Globulin 3.2 g/dL (1.7-4.1); Glucose 110 mg/dL (80-110); HEMOLYSIS < 15 (0-50); Potassium 4.4 mmol/L (3.4-5.1); Sodium 137 mmol/L (137-145); Total Protein 7.4 g/dL (6.3-8.2)
[2024-03-16 09:46] LABS: Add Manual Diff / Slide Review NO; Basophils Absolute Auto 100 /uL (0-100); Basophils Percent Auto 1.4 % (0-2); Eosinophils Absolute Auto 200 /uL (0-450); Hematocrit 38.8 % (36-46); Hemoglobin 13.3 g/dL (12.0-16.0); Lymphocytes Absolute Auto 1500 /uL (1100-4500); Lymphocytes Percent Auto 29.2 % (25-40); Mean Corpuscular HGB Conc 34.4 % (30-36); Mean Corpuscular Hemoglobin 32.3 PG (26-34); Monocytes Absolute Auto 300 /uL (0-900); Monocytes Percent Auto 5.9 % (3-14); Neutrophils Absolute Auto 3000 /uL (1500-7000); Neutrophils Percent Auto 59.5 % (50-75); Platelet Count 351 X10^3/uL (150-400); Red Blood Cell Count 4.13 X10^6/uL (4.0-5.2); Red Cell Distribution Width 13.7 % (11.6-14.8)
== END ==
PROVIDERS: Family Provider Family Medicine; PCP Family Medicine; Referring Provider Internal Medicine Hematology & Oncology; Visit Provider Internal Medicine Hematology & Oncology
DX: C50.911 Malignant neoplasm of unspecified site of right female breast (principal)
CPT/HCPCS: 36415; 80053; 85025

== ENCOUNTER → 2024-04-05 14:52 | Outpatient (CLI) | payer MEDICARE, SELFPAY ==
--- NOTE | 2024-04-05 14:53 | DI.MG.S_ITS ---
BILATERAL DIGITAL SCREENING MAMMOGRAM 3D/2D WITH CAD POST LUMPECTOMY: 04/05/2024 CLINICAL: Routine screening. Personal history of right breast cancer. Comparison is made to exams dated: 03/26/2023 mammogram, 03/22/2022 mammogram, and 02/20/2021 mammogram - [facility]. There are scattered areas of fibroglandular density in both breasts (category b / 25%-50% glandular tissue). Current study was also evaluated with a Computer Aided Detection (CAD) system. There are benign post operative findings in the right breast. No significant masses, calcifications, or other findings are seen in either breast. There has been no significant interval change. IMPRESSION: BENIGN There is no mammographic evidence of malignancy. A 1 year screening mammogram is recommended. This exam was interpreted at Station ID: [id number]. NOTE: For mammograms, a report in lay terms will be sent to the patient. Approximately 15% of breast malignancies will not be visualized mammographically. In the management of a palpable breast mass, a negative mammogram must not discourage biopsy of a clinically suspicious lesion. Electronically Signed By: Eva villarreal/olivia:04/06/2024 08:59:57 copy to: IAIN FIGUEROA letter sent: Normal Exam ACR BI-RADS Category 2: Benign Finding(s) 3342F
== END ==
PROVIDERS: Family Provider Family Medicine; PCP Family Medicine; Referring Provider Family Medicine; Visit Provider Family Medicine
DX: Z12.31 Encounter for screening mammogram for malignant neoplasm of breast (principal); Z85.3 Personal history of malignant neoplasm of breast; R92.323 Mammographic fibroglandular density, bilateral breasts
CPT/HCPCS: 77063; 77067

== ENCOUNTER → 2024-08-27 11:06 | Outpatient (CLI) | payer MEDICARE, SELFPAY ==
--- NOTE | 2024-08-27 11:07 | DI.RAD.S_ITS ---
PROCEDURE: XR DEXA AXIAL SKELETON INDICATIONS: bone density screening COMPARISON: [facility], [place], XR DEXA AXIAL SKELETON, 05/25/2020, 14:08. FINDINGS: Lumbar Spine (L3-4 for comparison to prior): Bone mineral density 1.079 g/cm2, T score -0.2, compared to 1.4. Left Hip: Bone mineral density 0.834 g/cm2, T score -0.9, compared to -0.8. Left Femoral Neck: Bone mineral density 0.724 g/cm2, T score -1.1, compared to -1.2. Right Hip: Bone mineral density 0.807 g/cm2, T score -1.1, compared to -1.0. Right Femoral Neck: Bone mineral density 0.707 g/cm2, T score -1.3, compared to -0.9. Fracture Risk Calculation (when applicable): 10-year fracture risk of a major osteoporotic fracture 9.6 percent and of a hip fracture 1.6 percent. (T score greater or equal to -1.0 to: NORMAL) (T score from -1.1 to -2.4: OSTEOPENIA) (T score less than or equal to -2.5: OSTEOPOROSIS) IMPRESSION: Minimal osteopenia in the right femoral neck demonstrating slight loss of bone mineral density. Follow-up guidelines as follows: Osteoporosis: Consider a repeat DEXA and Vertebral Fracture Assessment (VFA) exam in 2 years or sooner if medically necessary, to reassess this patient's status. Osteopenia: Consider a repeat DEXA in 2-3 years to reassess this patient's status, or if there is a new clinical indication. Normal: Consider a repeat DEXA in 5 years or sooner, or if there is a new clinical indication. All treatment decisions require clinical judgment and consideration of individual patient factors, including patient preferences, comorbidities, previous drug use, risk factors not captured in the FRAX model (e.g., frailty, falls, vitamin D deficiency, increased bone turnover, interval significant decline in bone density ) and possible under- or over-estimation of fracture risk by FRAX. In addition, the NOF Guide recommends that FDA-approved medical therapies be considered in postmenopausal women and men age >= 50 years with a: * Hip or vertebral (clinical or morphometric) fracture * T-score of <=-2.5 at the spine or hip * Ten-year fracture probability by FRAX of >= 3% for hip fracture or >=20% for major osteoporotic fracture. People with diagnosed cases of osteoporosis or at high risk for fracture should have regular bone mineral density tests. For patients eligible for Medicare, routine testing is allowed once every 2 years. The testing frequency can be increased to one year for patients who have rapidly progressing disease, those who are receiving or discontinuing medical therapy to restore bone mass, or have additional risk factors. Dictated by: Caren Lizama M.D. on 08/27/2024 at 16:57 Approved by: Caren Lizama M.D. on 08/27/2024 at 17:00
== END ==
LOC: RAD 11:07
PROVIDERS: Family Provider Family Medicine; PCP Family Medicine; Referring Provider Family Medicine; Visit Provider Family Medicine
DX: M85.89 Other specified disorders of bone density and structure, multiple sites (principal)
CPT/HCPCS: 77080

== ENCOUNTER → 2024-09-06 09:39 | Outpatient (CLI) | payer MEDICARE, SELFPAY | PROVIDERS: Family Provider Family Medicine; PCP Family Medicine; Referring Provider Family Medicine; Visit Provider Family Medicine | DX: R00.2 Palpitations (principal) | CPT/HCPCS: 93242; 93244 ==

== ENCOUNTER → 2024-10-07 06:49 | Outpatient (CLI) | payer MEDICARE, SELFPAY ==
[2024-10-07 08:04] LABS: D Dimer 905 ng/ml (<500)
[2024-10-07 08:17] LABS: Alanine Aminotransferase 29 IU/L (<35); Albumin 4.1 g/dL (3.5-5.0); Albumin Globulin Ratio 1.4 (1.0-2.8); Alkaline Phosphatase 95 U/L (38-126); Aspartate Aminotransferase 38 IU/L (14-36); BUN Creatinine Ratio 19.8 (6-22); Bilirubin Total 1.1 mg/dL (0.2-1.3); Blood Urea Nitrogen 16 mg/dL (7-17); Calcium 9.7 mg/dL (8.4-10.2); Carbon Dioxide 29 mmol/L (22-32); Chloride 104 mmol/L (98-107); Estimated Glomerular Filt Rate > 60 mL/min (>60); Glucose 102 mg/dL (80-110); HEMOLYSIS < 15 (0-50); Potassium 4.3 mmol/L (3.4-5.1); Sodium 137 mmol/L (137-145); Total Protein 7.1 g/dL (6.3-8.2)
[2024-10-07 08:27] LABS: Free T3, Triiodothyronine Free 3.89 pg/mL (2.77-5.27); Free T4, Direct Thyroxine 1.27 ng/dL (0.78-2.19)
[2024-10-07 08:41] LABS: Thyroid Stimulating Hormone 1.49 uIU/mL (0.47-4.68)
== END ==
PROVIDERS: Family Provider Family Medicine; PCP Family Medicine; Referring Provider Family Medicine; Visit Provider Family Medicine
DX: E06.3 Autoimmune thyroiditis (principal); I10 Essential (primary) hypertension
CPT/HCPCS: 36415; 80053; 84439; 84443; 84481; 84482; 85379

== ENCOUNTER → 2025-04-08 15:02 | Outpatient (CLI) | payer MEDICARE, SELFPAY ==
--- NOTE | 2025-04-08 15:03 | DI.MG.S_ITS ---
MM screening mammo BI: 04/08/2025. BI-RADS: 2 CLINICAL: 74-year old female for bilateral screening mammogram. No Tyrer-Cuzick risk score calculation due to the patient's personal history of breast cancer. Patient reports a history of right breast carcinoma diagnosed at age 67. Status-post right lumpectomy with radiation therapy. No first-degree family history of breast cancer. The patient had a prior right breast biopsy. PRIOR EXAMS 04/05/2024, 03/26/2023, 03/22/2022, 02/20/2021. MAMMOGRAPHY TECHNIQUE: 2D and 3D (tomosynthesis) digital mammographic views obtained, with additional images as needed for full coverage. Current study was also evaluated with a Computer Aided Detection (CAD) system. DENSITY B. There are scattered areas of fibroglandular density. MAMMOGRAPHY FINDINGS Right: Biopsy marker present on the right. Benign-appearing post-surgical changes noted on the right. There are no suspicious masses, calcifications, or other findings in the breast. Left: No suspicious mass, asymmetry, microcalcification, or other abnormality seen. IMPRESSION: Right * No evidence of malignancy with benign findings. Left * No evidence of malignancy. RECOMMENDATIONS Bilateral * Annual screening mammography. OVERALL ASSESSMENT CATEGORY BI-RADS-2: Benign. The [employer] recommends annual screening mammography beginning at age 40 for women with average risk of breast cancer. ELECTRONICALLY SIGNED: Roxie Reyes M.D. on 04/08/2025 at 11:29:47 PM PT Interpreting Station ID: [id number]
== END ==
PROVIDERS: PCP Family Medicine; Referring Provider Family Medicine; Visit Provider Family Medicine
DX: Z12.31 Encounter for screening mammogram for malignant neoplasm of breast (principal); Z85.3 Personal history of malignant neoplasm of breast
CPT/HCPCS: 77063; 77067